=== PATIENT | male | born 1950 | race Caucasian/White ===

== ENCOUNTER → 2016-02-14 | Outpatient (CLI) | payer MEDICARE, OTHER ==
[~2016-02-14] MED LIST: AMLO5TAB2 PO; ASPI32ECTA PO; BACT800T5 PO; BICA50TA2 PO; FLOM5CAP PO; FURO20TA2 PO; GLYB5TA PO; INVO100T PO; LISI20TA3 PO; MAPA325T2 PO; METF1000 PO; POTA10CA PO; SYNT125T PO; TRAD5TAB PO; ZOCO40TA PO
== END ==
LOC: M ONCR 14:22
PROVIDERS: ATTEND Radiology Radiation Oncology
DX: C61 Malignant neoplasm of prostate (principal); C79.51 Secondary malignant neoplasm of bone

== ENCOUNTER 2016-02-17 18:08 | Emergency (ER) | payer OTHER, MEDICARE ==
[2016-02-17 19:25] LABS: BASO % 0.5 % (0.0-1.0); EOS # 0.3 K/mm3 (0.0-0.50); EOS % 5.1 % (0.0-3.0); LARGE UNSTAINED CELL # 0.2 K/mm3 (0.0-0.4); LYMPH # 0.7 K/mm3 (1.5-4.5); LYMPH % 12.8 % (24.0-44.0); MEAN CORPUSCULAR HEMOGLOBIN 29.7 pg (27.0-33.0); MEAN CORPUSCULAR HGB CONC 33.6 g/dl (32.0-36.5); MEAN CORPUSCULAR VOLUME 88.5 fl (80.0-96.0); MONO # 0.3 K/mm3 (0.0-0.8); MONO % 5.5 % (0.0-5.0); NEUTROPHILS # 3.9 K/mm3 (1.8-7.7); NEUTROPHILS % 73.2 % (36.0-66.0); PLATELET COUNT, AUTOMATED 274 k/mm3 (150-450); RED CELL DISTRIBUTION WIDTH 12.8 % (11.5-14.5); WHITE BLOOD COUNT 5.4 K/mm3 (4.0-10.0)
[2016-02-17 19:52] LABS: CALCIUM LEVEL 8.8 MG/DL (8.8-10.2); CREATININE FOR GFR 1.95 MG/DL (0.70-1.30); FREE T4 1.72 NG/DL (0.76-1.46); GLOMERULAR FILTRATION RATE 36.8 (>49); POTASSIUM SERUM 3.5 MEQ/L (3.5-5.1)
--- NOTE | 2016-02-17 20:00 | REPUSA ---
CLINICAL HISTORY: Dizzy. TECHNIQUE: Multiple axial CT images were obtained through the brain without IV contrast material. COMMENTS: Comparison is made to the prior exam performed on 11/28/2015. Again noted prior occipital craniectomy with an associated pseudomeningocele. There is compression of the posterior fossa. There is normal configuration of sella turcica. There are no intra or extra-axial collections. There is no mass effect or midline shift. There is no evidence of hematoma formation. No hydrocephalus is p resent. The ventricles are symmetrical. No abnormal calcifications are present. There is diffuse age-appropriate cerebellar and cerebral atrophy with proportionally dilated ventricl es and cortical sulci. There are bilateral periventricular and subcortical white matter hypolucencies compatible with mild c hronic microvascular disease. Otherwise, no significant acute focal abnormalities are seen either in the posterior fossa or suprate ntorial compartment. IMPRESSION: Occipital craniectomy. Decompression of the posterior fossa. 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 No interval change and no acute intracranial pathology. Thank you for your kind referral of this patient.
--- NOTE | 2016-02-17 21:30 | EDDOCDS ---
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 I've had jc4 dry heaves". Currently undergoing radiation. Pt states became dizzy, fell and struck his head 2 days ago. Adult Sepsis Screening: The patient does not have new or worsening altered mentation. Patient's respiratory rate is less than 22. Systolic blood pressure is greater than 100. Patient has a qSOFA score of 0- Negative Sepsis Screen. Suicide/Homicide risk assessment- the patient denies having any suicidal and/or homicidal ideations and does not present with any other emotional, behavioral or mental health complaints. Status: Patient is not a field service tech or dependent. Transition of care: patient was not received from another setting of care. 18:13 Acuity: NILE Level 3 jc4 18:13 Method Of Arrival: Wheelchair jc4 Triage Assessment: 18:24 General: Appears in no apparent distress. jc4 18:24 Pain: Pain currently is 3 out of 10 on a pain scale. jc4 Historical: - Allergies: no known allergies; - Home Meds: 1. aspirin 325 mg oral tab 1 tab once daily (Last dose: 02/17/2016 11:00) 2. furosemide 20 mg Oral tab 1 tab once daily (Last dose: 02/17/2016 11:00) 3. levothyroxine 125 mcg Oral tab 1 tab once daily (Last dose: 02/17/2016 11:00) 4. lisinopril-hydrochlorothiazide 20-25 mg oral tab 1 tab once daily (Last dose: 02/17/2016 11:00) 5. metformin 1,000 mg Oral tab 2 tab 2 times per day (Last dose: 02/17/2016 11:00) 6. potassium chloride 10 mEq Oral cpER 1 cap once daily (Last dose: 02/17/2016 11:00) 7. simvastatin 40 mg oral tab 1 tab nightly (Last dose: 02/16/2016) 8. tamsulosin 0.4 mg oral cp24 1 cap once daily (Last dose: 02/16/2016) - PMHx: Hypothyroidism; Hypertension; Diabetes - NIDDM: controlled; Cancer, Brain; Cancer, Prostate; Cancer, Bone; Grave's Disease; - PSHx: brain surgery, tumor removal; eye surgery; - The history from nurses notes was reviewed: and I agree with what is documented. - Social history: Smoking status: Patient states former smoker of tobacco. No barriers to communication noted, The patient speaks fluent [place]. - Family history: Not pertinent. - : The pt / caregiver states he / she is not on anticoagulants. Home medication list is obtained from the patient. - Hospitalizations: : No recent hospitalization is reported. - Exposure Risk Screening:: None identified. - Immunization history:: All immunizations up-to-date. - Social history:: the patient is a non-smoker, the patient does not drink alcohol. Screenin:49 Screening information is obtained from the patient. Fall risk: At risk due to dizziness mlc . Assistance ADL's: requires no assistance with activities of daily living. Abuse/DV Screen: The patient / caregiver reports he/she is: not in a situation that causes fear, pain or injury. Nutritional screening: No deficits noted. Advance Directives: Currently, there is no health care proxy. There is no active DNR order. There is no Power of Websphere Message Broker Developer. home support is adequate. Assessment: 18:38 General: Appears in no apparent distress, Behavior is appropriate for age, cooperative. pml General:. Pain: Denies pain. Neurological: Level of Consciousness is awake, alert, Oriented to person, place, time, Enterprise Records Analyst are equal bilaterally Moves all extremities. Facial symmetry appears normal, Pupils are PERRLA, Reports dizziness, intermittently when standing which resolves after remaining standing for a brief period of time. Cardiovascular: Capillary refill < 3 seconds Rhythm is sinus rhythm No ectopy. Respiratory: Airway is patent Respiratory effort is even, unlabored. GI: Abdomen is non- distended Reports dry heaving. Derm: Skin is pink, warm & dry. 19:18 General: Appears in no apparent distress, comfortable, pt talking about financial mlc issues, having a fixed income and not being able to afford gas money.. 19:49 General: Appears in no apparent distress, comfortable, Behavior is cooperative. mlc Neurological: Level of Consciousness is awake, alert, obeys commands, Oriented to person, place, time. Respiratory: Airway is patent Respiratory effort is even, unlabored, Respiratory pattern is regular. 20:51 Reassessment: Patient appears in no apparent distress at this time. no changes since mlc prior. resp easy/unlabored. . 21:28 General: Appears in no apparent distress, comfortable, Behavior is appropriate for age, ko2 cooperative. Neurological: Level of Consciousness is awake, alert. Respiratory: Airway is patent Respiratory effort is even, unlabored. Derm: Skin is pink, warm & dry. Social Work Consult: 21:23 Social Work Note: Pt requested to speak to PSA regarding his welfare benefits. Pt ac states he had his benefits cut and doesn't have enough to live on. Pt has multiples complaints. Pt to be referred to Health Home program for case management to see if he is entitled to any additional resources. No further intervention required at this time. Vital Signs: 18:10 BP 101 / 63; Pulse 93; Resp 18 S; Temp 97.5(O); Pulse Ox 100% on R/A; Weight 84.82 kg gr2 (R); Height 5 ft. 9 in. (175.26 cm) (R); Pain 3/10; 18:38 BP 106 / 63 Supine; Pulse 80; pml 18:38 BP 103 / 51 Sitting; Pulse 90; pml 18:38 BP 94 / 60 Standing; Pulse 97; pml 21:28 BP 114 / 58; Pulse 73; Resp 20; Temp 98.3; Pulse Ox 100% ; Pain 3/10; ko2 18:10 Body Mass Index 27.61 (84.82 kg, 175.26 cm) gr2 Vitals: 18:10 Log In Time: February 17, 2016 at 18:10. gr2 ED Course: 18:09 Patient visited by Chay Glez. gr2 18:09 Patient moved to Waiting gr2 18:10 Hola Cooper is Private Physician. gr2 18:11 Patient visited by Chay Glez. gr2 18:11 Patient moved to Pre RCE gr2 18:16 Triage Initiated jc4 18:26 Denise Watts,ANASTASIIA is Primary Nurse. jc4 18:26 Patient moved to 10 jc4 18:28 José Mcknight MD is Attending Physician. pc 18:33 Patient visited by Nichelle Mohr. dem1 18:33 Pt greeted and oriented to ED. Patient advised of names of staff involved in care, [facility] location of call holman, wait times and NPO status. Patient has correct armband on for positive identification. Placed in gown. Bed in low position. Side rails up X 1. email administrator on. Pulse ox on. NIBP on. 18:48 Patient visited by José Mcknight MD. pc 19:06 Patient visited by Maurisio Moreland PCA. kb5 19:06 Isabelle Weber,RN is Primary Nurse. mlc 19:17 CBC with Diff Sent. mlc 19:17 TSH with Free T4 Sent. mlc 19:17 MED Profile Sent. mlc 19:17 No IV's were initiated during this patient's visit. mlc 19:49 The patient / caregiver is instructed regarding the plan of care and ED course. mlc 19:50 Patient visited by Isabelle Weber,ANASTASIIA. mlc 20:00 CT Head Without Contrast Returned. EDMS 20:05 Primary Nurse role handed off by Denise Watts,ANASTASIIA jmv 20:51 Patient visited by Isabelle Weber,ANASTASIIA. mlc 20:59 Hola Cooper MD is Referral Physician. pc 21:29 No procedures done that require assistance. ko2 Order Results: Lab Order: MED Profile; SPEC'M 02/17/16 19:14 Test: GLUCOSE, FASTING; Value: 171; Range: 80-110; Abnormal: Above high normal; Units: MG/DL; Status: F Test: BLOOD UREA NITROGEN; Value: 36; Range: 7-18; Abnormal: Above high normal; Units: MG/DL; Status: F Test: CREATININE FOR GFR; Value: 1.95; Range: 0.70-1.30; Abnormal: Above high normal; Units: MG/DL; Status: F Test: GLOMERULAR FILTRATION RATE; Value: 36.8; Range: >49; Abnormal: Below low normal; Status: F Test: SODIUM LEVEL; Value: 140; Range: 136-145; Units: MEQ/L; Status: F Test: POTASSIUM SERUM; Value: 3.5; Range: 3.5-5.1; Units: MEQ/L; Status: F Test: CHLORIDE LEVEL; Value: 102; Range: 98-107; Units: MEQ/L; Status: F Test: CARBON DIOXIDE LEVEL; Value: 24; Range: 21-32; Units: MEQ/L; Status: F Test: ANION GAP; Value: 14; Range: 8-16; Units: MEQ/L; Status: F Test: CALCIUM LEVEL; Value: 8.8; Range: 8.8-10.2; Units: MG/DL; Status: F Test Note: ; Units are mL/min/1.73 m2 Chronic Kidney Disease Staging per NKF: Stage I & II GFR >=60 Normal to Mildly Decreased Stage III GFR 30-59 Moderately Decreased Stage IV GFR 15-29 Severely Decreased Stage V GFR <15 Very Little GFR Left ESRD GFR <15 on CRITICAL CARE NURSE PRACTITIONER Lab Order: TSH with Free T4; SPEC'M 02/17/16 19:14 Test: THYROID STIMULATING HORMONE; Value: 0.029; Range: 0.358-3.740; Abnormal: Below low normal; Units: uIU/ML; Status: F Test: FREE T4; Value: 1.72; Range: 0.76-1.46; Abnormal: Above high normal; Units: NG/DL; Status: F Lab Order: CBC with Diff; SPEC'M 02/17/16 19:14 Test: WHITE BLOOD COUNT; Value: 5.4; Range: 4.0-10.0; Units: K/mm3; Status: F Test: RED BLOOD COUNT; Value: 3.83; Range: 4.30-6.10; Abnormal: Below low normal; Units: M/mm3; Status: F Test: HEMOGLOBIN; Value: 11.4; Range: 14.0-18.0; Abnormal: Below low normal; Units: g/dl; Status: F Test: HEMATOCRIT; Value: 33.9; Range: 42.0-52.0; Abnormal: Below low normal; Units: %; Status: F Test: MEAN CORPUSCULAR VOLUME; Value: 88.5; Range: 80.0-96.0; Units: fl; Status: F Test: MEAN CORPUSCULAR HEMOGLOBIN; Value: 29.7; Range: 27.0-33.0; Units: pg; Status: F Test: MEAN CORPUSCULAR HGB CONC; Value: 33.6; Range: 32.0-36.5; Units: g/dl; Status: F Test: RED CELL DISTRIBUTION WIDTH; Value: 12.8; Range: 11.5-14.5; Units: %; Status: F Test: PLATELET COUNT, AUTOMATED; Value: 274; Range: 150-450; Units: k/mm3; Status: F Test: NEUTROPHILS %; Value: 73.2; Range: 36.0-66.0; Abnormal: Above high normal; Units: %; Status: F Test: LYMPH %; Value: 12.8; Range: 24.0-44.0; Abnormal: Below low normal; Units: %; Status: F Test: MONO %; Value: 5.5; Range: 0.0-5.0; Abnormal: Above high normal; Units: %; Status: F Test: EOS %; Value: 5.1; Range: 0.0-3.0; Abnormal: Above high normal; Units: %; Status: F Test: BASO %; Value: 0.5; Range: 0.0-1.0; Units: %; Status: F Test: LARGE UNSTAINED CELL %; Value: 3.0; Range: 0.0-4.0; Units: %; Status: F Test: NEUTROPHILS #; Value: 3.9; Range: 1.8-7.7; Units: K/mm3; Status: F Test: LYMPH #; Value: 0.7; Range: 1.5-4.5; Abnormal: Below low normal; Units: K/mm3; Status: F Test: MONO #; Value: 0.3; Range: 0.0-0.8; Units: K/mm3; Status: F Test: EOS #; Value: 0.3; Range: 0.0-0.50; Units: K/mm3; Status: F Test: BASO #; Value: 0.0; Range: 0.0-0.2; Units: K/mm3; Status: F Test: LARGE UNSTAINED CELL #; Value: 0.2; Range: 0.0-0.4; Units: K/mm3; Status: F Radiology Order: CT Head Without Contrast Test: CT Head Without Contrast REASON FOR EXAMINATION: dizziness s/p craniotomy; ; CLINICAL HISTORY: Dizzy.; TECHNIQUE: Multiple axial CT images were obtained through the brain without IV contrast material.; COMMENTS:; Comparison is made to the prior exam performed on 11/28/2015.; Again noted prior occipital craniectomy with an associated pseudomeningocele. There is compression of; the posterior fossa.; There is normal configuration of sella turcica. There are no intra or extra-axial collections. There; is no mass effect or midline shift. There is no evidence of hematoma formation. No hydrocephalus is p; resent. The ventricles are symmetrical. No abnormal calcifications are present.; There is diffuse age-appropriate cerebellar and cerebral atrophy with proportionally dilated ventricl; es and cortical sulci.; There are bilateral periventricular and subcortical white matter hypolucencies compatible with mild c; hronic microvascular disease.; Otherwise, no significant acute focal abnormalities are seen either in the posterior fossa or suprate; ntorial compartment.; IMPRESSION:; Occipital craniectomy. Decompression of the posterior fossa. Pseudomeningocele at the site of the power crane operator; niectomy as described above.; No interval change and no acute intracranial pathology.; Thank you for your kind referral of this patient.; ; ; Outcome: 19:49 CT Study completed. [facility] 20:59 Discharge ordered by Provider. 21:29 Discharge Assessment: Patient awake, alert and oriented x 3. No cognitive and/or ko2 functional deficits noted. Patient verbalized understanding of disposition instructions. patient administered narcotics - no. The following High Risk Discharge criteria are identified: None. Discharged to home ambulatory, with family. Condition: stable. Discharge instructions given to patient, Instructed on discharge instructions, follow up and referral plans. Demonstrated understanding of instructions, Pt was receptive of discharge instructions/ teaching. Property sent home with patient. 21:29 Patient left the ED. ko2 Signatures: Dispatcher [employer] EDMS José Mcknight MD MD pc Carter, Alexandre, PSA PSA Maurisio Jordan, FEATHERER FEATHERER kb5 Dorota Gonzalez RN RN jc4 Denise Watts RN RN Nichelle Lee dem1 Chay Glez gr2 Isabelle Wbeer RN RN [facility] Dominique Power RN RN ko2 Casas, Romaine, FEATHERER FEATHERER jmv MTDD
--- NOTE | 2016-02-17 21:30 | EDDOCDS ---
Physician Documentation [facility] Name: Papito Abebe Age: 65 yrs Sex: Male : 1950 Arrival Date: 02/17/2016 Time: 18:08 Bed 10 Private MD: Hola Cooper MD Disposition: 02/16 20:36 Critical Care: Critical care not applicable. pc Disposition: 02/17/16 20:59 Discharged to Home/Self Care. 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 - Condition is Stable. - Discharge Instructions: Orthostatic Hypotension. - Medication Reconciliation, Local Pharmacy Hours form. - Follow up: Hola Cooper MD; When: Call to arrange an appointment; Reason: Continuance of care. - Problem is an ongoing problem. - Symptoms are unchanged. HPI: 18:49 This 65 yrs old Male presents to ER via Wheelchair with complaints of pc Dizziness. 18:49 The history is obtained from the patient. He has intermittent dizziness, only when pc going from a sitting or lying position to a standing position. 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 He has metastatic prostate Ca, with blastic lesions in his axial spine and his ribs, and had a posterior fossa mass with resection. He has refused chemotherapy and is finished his radiation. He denies any headaches, fevers or chills, cough, chest pain, GI or symptoms. The patient has experienced similar episodes in the past, multiple times. The patient has been recently seen by Dr. Rich. Historical: - Allergies: no known allergies; - Home Meds: 1. aspirin 325 mg oral tab 1 tab once daily (Last dose: 02/17/2016 11:00) 2. furosemide 20 mg Oral tab 1 tab once daily (Last dose: 02/17/2016 11:00) 3. levothyroxine 125 mcg Oral tab 1 tab once daily (Last dose: 02/17/2016 11:00) 4. lisinopril-hydrochlorothiazide 20-25 mg oral tab 1 tab once daily (Last dose: 02/17/2016 11:00) 5. metformin 1,000 mg Oral tab 2 tab 2 times per day (Last dose: 02/17/2016 11:00) 6. potassium chloride 10 mEq Oral cpER 1 cap once daily (Last dose: 02/17/2016 11:00) 7. simvastatin 40 mg oral tab 1 tab nightly (Last dose: 02/16/2016) 8. tamsulosin 0.4 mg oral cp24 1 cap once daily (Last dose: 02/16/2016) - PMHx: Hypothyroidism; Hypertension; Diabetes - NIDDM: controlled; Cancer, Brain; Cancer, Prostate; Cancer, Bone; Grave's Disease; - PSHx: brain surgery, tumor removal; eye surgery; - The history from nurses notes was reviewed: and I agree with what is documented. - Social history: Smoking status: Patient states former smoker of tobacco. No barriers to communication noted, The patient speaks fluent [place]. - Family history: Not pertinent. - : The pt / caregiver states he / she is not on anticoagulants. Home medication list is obtained from the patient. - Hospitalizations: : No recent hospitalization is reported. - Exposure Risk Screening:: None identified. - Immunization history:: All immunizations up-to-date. - Social history:: the patient is a non-smoker, the patient does not drink alcohol. ROS: 18:48 He denies any back or rib pain. pc 18:49 All systems are negative except as listed. pc Exam: 18:57 General Appearance: no acute distress, alert. pc 18:57 EENT: normal eye inspection, ears, nose and throat normal, pharynx normal, mucous membranes moist 18:57 Neck: The exam reveals no acute abnormalities. ROM is normal and painless. No nuchal rigidity is noted.. 18:57 Respiratory: no respiratory distress, normal breath sounds, chest non-tender. 18:57 CVS: regular pulse rate, regular rhythm, normal S1 and S2, no murmurs, strong peripheral pulses. 18:57 Abdomen: soft, non-tender, no organomegaly, normal bowel sounds. 18:57 Back: normal inspection. 18:57 Skin: skin color is normal, warm, dry. 18:57 Extremities: The extremities have a grossly normal appearance, are non-tender, without acute ROM abnormalities. 18:57 Neuro: oriented x 3, cranial nerves normal as tested, no motor deficits, no sensory deficits. 18:57 Psych: normal mood. Vital Signs: 18:10 BP 101 / 63; Pulse 93; Resp 18 S; Temp 97.5(O); Pulse Ox 100% on R/A; Weight 84.82 kg / gr2 187 lbs (R); Height 5 ft. 9 in. (175.26 cm) (R); Pain 3/10; 18:38 BP 106 / 63 Supine; Pulse 80; pml 18:38 BP 103 / 51 Sitting; Pulse 90; pml 18:38 BP 94 / 60 Standing; Pulse 97; pml 21:28 BP 114 / 58; Pulse 73; Resp 20; Temp 98.3; Pulse Ox 100% ; Pain 3/10; ko2 18:10 Body Mass Index 27.61 (84.82 kg, 175.26 cm) gr2 MDM: 18:43 Data reviewed: The patient's [facility] records were accessed, as they were informed. pc 18:48 Orthostatic VS ordered. pc 18:50 MED Profile Ordered. EDMS 18:50 TSH with Free T4 Ordered. EDMS 18:50 CBC with Diff Ordered. EDMS 18:50 CT Head Without Contrast Ordered. EDMS 18:58 Differential Diagnosis: orthostatic hypotension; prior craniotomy but with benign exam. pc Plan: labs, CT. 20:02 Consult PFS/PSA/Auto Painter Helper: Resources/Social Work ordered. mlc 20:34 MED Profile Reviewed. pc 20:34 TSH with Free T4 Reviewed. pc 20:34 CBC with Diff Reviewed. pc 20:34 CT Head Without Contrast Reviewed. pc 20:35 Data reviewed: old medical records, vital signs, nurses notes, lab test results, all pc radiology studies and available results. Test interpretation: LAB - all labs as ordered have been reviewed, interpreted and considered in the overall management of the clinical presentation; interpreted by Radiologist and personally reviewed, Head CT; no acute disease. The patient has been re-examined and re-evaluated. The clinical presentation did not require any ED treatment or interventions. Other consultation: The ED recording studio set up worker was notified and will evaluate the patient. 20:36 Disposition: The historical points, examination findings, and any diagnostic results pc supporting the provided diagnosis, were discussed with the patient or legal guardian. The need for outpatient follow up with the provider listed on their discharge instructions was discussed. They were encouraged to return to [facility], or the nearest ED, if symptoms worsen/persist, or for any other questions/concerns. 21:17 Consult PFS/PSA/Auto Painter Helper: Resources/Social Work complete. larry Signatures: Dispatcher [employer] José Beaulieu MD MD pc Newman, Jennifer Daily RN RN Dorota Alejandro RN RN jc4 Denise WattsRN ANASTASIIA pml Isabelle Weber RN RN mlc Dominique Power RN RN ko2 The chart was reviewed and I authenticate all verbal orders and agree with the evaluation and treatment provided.Corrections: (The following items were deleted from the chart) 20:02 19:46 Consult: Stock Sheets Cleaner Inspector ordered. mlc mlc MTDD
--- NOTE | 2016-02-20 11:48 | EDDOCDS ---
Nurse's Notes 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 I've had jc4 dry heaves". Currently undergoing radiation. Pt states became dizzy, fell and struck his head 2 days ago. Adult Sepsis Screening: The patient does not have new or worsening altered mentation. Patient's respiratory rate is less than 22. Systolic blood pressure is greater than 100. Patient has a qSOFA score of 0- Negative Sepsis Screen. Suicide/Homicide risk assessment- the patient denies having any suicidal and/or homicidal ideations and does not present with any other emotional, behavioral or mental health complaints. Status: Patient is not a family services manager or dependent. Transition of care: patient was not received from another setting of care. 18:13 Acuity: NILE Level 3 jc4 18:13 Method Of Arrival: Wheelchair jc4 Triage Assessment: 18:24 General: Appears in no apparent distress. jc4 18:24 Pain: Pain currently is 3 out of 10 on a pain scale. jc4 Historical: - Allergies: no known allergies; - Home Meds: 1. aspirin 325 mg oral tab 1 tab once daily (Last dose: 02/17/2016 11:00) 2. furosemide 20 mg Oral tab 1 tab once daily (Last dose: 02/17/2016 11:00) 3. levothyroxine 125 mcg Oral tab 1 tab once daily (Last dose: 02/17/2016 11:00) 4. lisinopril-hydrochlorothiazide 20-25 mg oral tab 1 tab once daily (Last dose: 02/17/2016 11:00) 5. metformin 1,000 mg Oral tab 2 tab 2 times per day (Last dose: 02/17/2016 11:00) 6. potassium chloride 10 mEq Oral cpER 1 cap once daily (Last dose: 02/17/2016 11:00) 7. simvastatin 40 mg oral tab 1 tab nightly (Last dose: 02/16/2016) 8. tamsulosin 0.4 mg oral cp24 1 cap once daily (Last dose: 02/16/2016) - PMHx: Hypothyroidism; Hypertension; Diabetes - NIDDM: controlled; Cancer, Brain; Cancer, Prostate; Cancer, Bone; Grave's Disease; - PSHx: brain surgery, tumor removal; eye surgery; - The history from nurses notes was reviewed: and I agree with what is documented. - Social history: Smoking status: Patient states former smoker of tobacco. No barriers to communication noted, The patient speaks fluent Cook Islander. - Family history: Not pertinent. - : The pt / caregiver states he / she is not on anticoagulants. Home medication list is obtained from the patient. - Hospitalizations: : No recent hospitalization is reported. - Exposure Risk Screening:: None identified. - Immunization history:: All immunizations up-to-date. - Social history:: the patient is a non-smoker, the patient does not drink alcohol. Screenin:49 Screening information is obtained from the patient. Fall risk: At risk due to dizziness mlc . Assistance ADL's: requires no assistance with activities of daily living. Abuse/DV Screen: The patient / caregiver reports he/she is: not in a situation that causes fear, pain or injury. Nutritional screening: No deficits noted. Advance Directives: Currently, there is no health care proxy. There is no active DNR order. There is no Power of Cloth Classer. home support is adequate. Assessment: 18:38 General: Appears in no apparent distress, Behavior is appropriate for age, cooperative. pml General:. Pain: Denies pain. Neurological: Level of Consciousness is awake, alert, Oriented to person, place, time, Pressure Supervisor are equal bilaterally Moves all extremities. Facial symmetry appears normal, Pupils are PERRLA, Reports dizziness, intermittently when standing which resolves after remaining standing for a brief period of time. Cardiovascular: Capillary refill < 3 seconds Rhythm is sinus rhythm No ectopy. Respiratory: Airway is patent Respiratory effort is even, unlabored. GI: Abdomen is non- distended Reports dry heaving. Derm: Skin is pink, warm & dry. 19:18 General: Appears in no apparent distress, comfortable, pt talking about financial mlc issues, having a fixed income and not being able to afford gas money.. 19:49 General: Appears in no apparent distress, comfortable, Behavior is cooperative. mlc Neurological: Level of Consciousness is awake, alert, obeys commands, Oriented to person, place, time. Respiratory: Airway is patent Respiratory effort is even, unlabored, Respiratory pattern is regular. 20:51 Reassessment: Patient appears in no apparent distress at this time. no changes since mlc prior. resp easy/unlabored. . 21:28 General: Appears in no apparent distress, comfortable, Behavior is appropriate for age, ko2 cooperative. Neurological: Level of Consciousness is awake, alert. Respiratory: Airway is patent Respiratory effort is even, unlabored. Derm: Skin is pink, warm & dry. Social Work Consult: 21:23 Social Work Note: Pt requested to speak to PSA regarding his welfare benefits. Pt ac states he had his benefits cut and doesn't have enough to live on. Pt has multiples complaints. Pt to be referred to Health Home program for case management to see if he is entitled to any additional resources. No further intervention required at this time. Vital Signs: 18:10 BP 101 / 63; Pulse 93; Resp 18 S; Temp 97.5(O); Pulse Ox 100% on R/A; Weight 84.82 kg gr2 (R); Height 5 ft. 9 in. (175.26 cm) (R); Pain 3/10; 18:38 BP 106 / 63 Supine; Pulse 80; pml 18:38 BP 103 / 51 Sitting; Pulse 90; pml 18:38 BP 94 / 60 Standing; Pulse 97; pml 21:28 BP 114 / 58; Pulse 73; Resp 20; Temp 98.3; Pulse Ox 100% ; Pain 3/10; ko2 18:10 Body Mass Index 27.61 (84.82 kg, 175.26 cm) gr2 Vitals: 18:10 Log In Time: February 17, 2016 at 18:10. gr2 ED Course: 18:09 Patient visited by Chay Glez. gr2 18:09 Patient moved to Waiting gr2 18:10 Hola Cooper is Private Physician. gr2 18:11 Patient visited by Chay Glez. gr2 18:11 Patient moved to Pre RCE gr2 18:16 Triage Initiated jc4 18:26 Denise Watts,ANASTASIIA is Primary Nurse. jc4 18:26 Patient moved to 10 jc4 18:28 José Mcknight MD is Attending Physician. pc 18:33 Patient visited by Nichelle Mohr. dem1 18:33 Pt greeted and oriented to ED. Patient advised of names of staff involved in care, dem1 location of call holman, wait times and NPO status. Patient has correct armband on for positive identification. Placed in gown. Bed in low position. Side rails up X 1. circus roustabout on. Pulse ox on. NIBP on. 18:48 Patient visited by José Mcknight MD. pc 19:06 Patient visited by Maurisio Moreland PCA. kb5 19:06 Isabelle Weber,RN is Primary Nurse. mlc 19:17 CBC with Diff Sent. mlc 19:17 TSH with Free T4 Sent. mlc 19:17 MED Profile Sent. mlc 19:17 No IV's were initiated during this patient's visit. mlc 19:49 The patient / caregiver is instructed regarding the plan of care and ED course. mlc 19:50 Patient visited by Isabelle Weber,ANASTASIIA. mlc 20:00 CT Head Without Contrast Returned. EDMS 20:05 Primary Nurse role handed off by Denise Watts,ANASTASIIA jmv 20:51 Patient visited by Isabelle Weber,ANASTASIIA. mlc 20:59 Hola Cooper MD is Referral Physician. pc 21:29 No procedures done that require assistance. ko2 22:24 [facility] Payment Agreement was scanned into [employer] and attached to record. [email or web address] Order Results: Lab Order: MED Profile; SPEC'M 02/17/16 19:14 Test: GLUCOSE, FASTING; Value: 171; Range: 80-110; Abnormal: Above high normal; Units: MG/DL; Status: F Test: BLOOD UREA NITROGEN; Value: 36; Range: 7-18; Abnormal: Above high normal; Units: MG/DL; Status: F Test: CREATININE FOR GFR; Value: 1.95; Range: 0.70-1.30; Abnormal: Above high normal; Units: MG/DL; Status: F Test: GLOMERULAR FILTRATION RATE; Value: 36.8; Range: >49; Abnormal: Below low normal; Status: F Test: SODIUM LEVEL; Value: 140; Range: 136-145; Units: MEQ/L; Status: F Test: POTASSIUM SERUM; Value: 3.5; Range: 3.5-5.1; Units: MEQ/L; Status: F Test: CHLORIDE LEVEL; Value: 102; Range: 98-107; Units: MEQ/L; Status: F Test: CARBON DIOXIDE LEVEL; Value: 24; Range: 21-32; Units: MEQ/L; Status: F Test: ANION GAP; Value: 14; Range: 8-16; Units: MEQ/L; Status: F Test: CALCIUM LEVEL; Value: 8.8; Range: 8.8-10.2; Units: MG/DL; Status: F Test Note: ; Units are mL/min/1.73 m2 Chronic Kidney Disease Staging per NKF: Stage I & II GFR >=60 Normal to Mildly Decreased Stage III GFR 30-59 Moderately Decreased Stage IV GFR 15-29 Severely Decreased Stage V GFR <15 Very Little GFR Left ESRD GFR <15 on DISTRICT LEADER Lab Order: TSH with Free T4; SPEC'M 02/17/16 19:14 Test: THYROID STIMULATING HORMONE; Value: 0.029; Range: 0.358-3.740; Abnormal: Below low normal; Units: uIU/ML; Status: F Test: FREE T4; Value: 1.72; Range: 0.76-1.46; Abnormal: Above high normal; Units: NG/DL; Status: F Lab Order: CBC with Diff; SPEC'M 02/17/16 19:14 Test: WHITE BLOOD COUNT; Value: 5.4; Range: 4.0-10.0; Units: K/mm3; Status: F Test: RED BLOOD COUNT; Value: 3.83; Range: 4.30-6.10; Abnormal: Below low normal; Units: M/mm3; Status: F Test: HEMOGLOBIN; Value: 11.4; Range: 14.0-18.0; Abnormal: Below low normal; Units: g/dl; Status: F Test: HEMATOCRIT; Value: 33.9; Range: 42.0-52.0; Abnormal: Below low normal; Units: %; Status: F Test: MEAN CORPUSCULAR VOLUME; Value: 88.5; Range: 80.0-96.0; Units: fl; Status: F Test: MEAN CORPUSCULAR HEMOGLOBIN; Value: 29.7; Range: 27.0-33.0; Units: pg; Status: F Test: MEAN CORPUSCULAR HGB CONC; Value: 33.6; Range: 32.0-36.5; Units: g/dl; Status: F Test: RED CELL DISTRIBUTION WIDTH; Value: 12.8; Range: 11.5-14.5; Units: %; Status: F Test: PLATELET COUNT, AUTOMATED; Value: 274; Range: 150-450; Units: k/mm3; Status: F Test: NEUTROPHILS %; Value: 73.2; Range: 36.0-66.0; Abnormal: Above high normal; Units: %; Status: F Test: LYMPH %; Value: 12.8; Range: 24.0-44.0; Abnormal: Below low normal; Units: %; Status: F Test: MONO %; Value: 5.5; Range: 0.0-5.0; Abnormal: Above high normal; Units: %; Status: F Test: EOS %; Value: 5.1; Range: 0.0-3.0; Abnormal: Above high normal; Units: %; Status: F Test: BASO %; Value: 0.5; Range: 0.0-1.0; Units: %; Status: F Test: LARGE UNSTAINED CELL %; Value: 3.0; Range: 0.0-4.0; Units: %; Status: F Test: NEUTROPHILS #; Value: 3.9; Range: 1.8-7.7; Units: K/mm3; Status: F Test: LYMPH #; Value: 0.7; Range: 1.5-4.5; Abnormal: Below low normal; Units: K/mm3; Status: F Test: MONO #; Value: 0.3; Range: 0.0-0.8; Units: K/mm3; Status: F Test: EOS #; Value: 0.3; Range: 0.0-0.50; Units: K/mm3; Status: F Test: BASO #; Value: 0.0; Range: 0.0-0.2; Units: K/mm3; Status: F Test: LARGE UNSTAINED CELL #; Value: 0.2; Range: 0.0-0.4; Units: K/mm3; Status: F Radiology Order: CT Head Without Contrast Test: CT Head Without Contrast REASON FOR EXAMINATION: dizziness s/p craniotomy; ; CLINICAL HISTORY: Dizzy.; TECHNIQUE: Multiple axial CT images were obtained through the brain without IV contrast material.; COMMENTS:; Comparison is made to the prior exam performed on 11/28/2015.; Again noted prior occipital craniectomy with an associated pseudomeningocele. There is compression of; the posterior fossa.; There is normal configuration of sella turcica. There are no intra or extra-axial collections. There; is no mass effect or midline shift. There is no evidence of hematoma formation. No hydrocephalus is p; resent. The ventricles are symmetrical. No abnormal calcifications are present.; There is diffuse age-appropriate cerebellar and cerebral atrophy with proportionally dilated ventricl; es and cortical sulci.; There are bilateral periventricular and subcortical white matter hypolucencies compatible with mild c; hronic microvascular disease.; Otherwise, no significant acute focal abnormalities are seen either in the posterior fossa or suprate; ntorial compartment.; IMPRESSION:; Occipital craniectomy. Decompression of the posterior fossa. 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 [facility] [place]:59 Discharge ordered by Provider. 21:29 Discharge Assessment: Patient awake, alert and oriented x 3. No cognitive and/or ko2 functional deficits noted. Patient verbalized understanding of disposition instructions. patient administered narcotics - no. The following High Risk Discharge criteria are identified: None. Discharged to home ambulatory, with family. Condition: stable. Discharge instructions given to patient, Instructed on discharge instructions, follow up and referral plans. Demonstrated understanding of instructions, Pt was receptive of discharge instructions/ teaching. Property sent home with patient. 21:29 Patient left the ED. ko2 Signatures: Dispatcher [employer] EDMS José Mcknight MD MD pc Alexandre Cabrera, MARCEL PSA ac Maurisio Moreland, DOCUMENT RESTORER DOCUMENT RESTORER kb5 Dorota Gonzalez RN RN jc4 Denise Watts RN RN pml Mack, Demeishia dem1 Chay Glez gr2 Isabelle Weber RN RN [facility] Dominique Power,RN RN ko2 Sherie Kelly, Reg Reg ks16 Casas, Romaine, DOCUMENT RESTORER DOCUMENT RESTORER jmv Chart Complete MTDD
--- NOTE | 2016-02-20 11:48 | EDDOCDS ---
Physician Documentation [facility] Name: Papito Abebe Age: 65 yrs Sex: Male : 1950 Arrival Date: 02/17/2016 Time: 18:08 Bed 10 Private MD: Hola Cooper MD Disposition: 02/16 20:36 Critical Care: Critical care not applicable. pc Disposition: 02/17/16 20:59 Discharged to Home/Self Care. 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 - Condition is Stable. - Discharge Instructions: Orthostatic Hypotension. - Medication Reconciliation, Local Pharmacy Hours form. - Follow up: Hola Cooper MD; When: Call to arrange an appointment; Reason: Continuance of care. - Problem is an ongoing problem. - Symptoms are unchanged. HPI: 18:49 This 65 yrs old Male presents to ER via Wheelchair with complaints of pc Dizziness. 18:49 The history is obtained from the patient. He has intermittent dizziness, only when pc going from a sitting or lying position to a standing position. 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 He has metastatic prostate Ca, with blastic lesions in his axial spine and his ribs, and had a posterior fossa mass with resection. He has refused chemotherapy and is finished his radiation. He denies any headaches, fevers or chills, cough, chest pain, GI or symptoms. The patient has experienced similar episodes in the past, multiple times. The patient has been recently seen by Dr. Rcih. Historical: - Allergies: no known allergies; - Home Meds: 1. aspirin 325 mg oral tab 1 tab once daily (Last dose: 02/17/2016 11:00) 2. furosemide 20 mg Oral tab 1 tab once daily (Last dose: 02/17/2016 11:00) 3. levothyroxine 125 mcg Oral tab 1 tab once daily (Last dose: 02/17/2016 11:00) 4. lisinopril-hydrochlorothiazide 20-25 mg oral tab 1 tab once daily (Last dose: 02/17/2016 11:00) 5. metformin 1,000 mg Oral tab 2 tab 2 times per day (Last dose: 02/17/2016 11:00) 6. potassium chloride 10 mEq Oral cpER 1 cap once daily (Last dose: 02/17/2016 11:00) 7. simvastatin 40 mg oral tab 1 tab nightly (Last dose: 02/16/2016) 8. tamsulosin 0.4 mg oral cp24 1 cap once daily (Last dose: 02/16/2016) - PMHx: Hypothyroidism; Hypertension; Diabetes - NIDDM: controlled; Cancer, Brain; Cancer, Prostate; Cancer, Bone; Grave's Disease; - PSHx: brain surgery, tumor removal; eye surgery; - The history from nurses notes was reviewed: and I agree with what is documented. - Social history: Smoking status: Patient states former smoker of tobacco. No barriers to communication noted, The patient speaks fluent Sudanese. - Family history: Not pertinent. - : The pt / caregiver states he / she is not on anticoagulants. Home medication list is obtained from the patient. - Hospitalizations: : No recent hospitalization is reported. - Exposure Risk Screening:: None identified. - Immunization history:: All immunizations up-to-date. - Social history:: the patient is a non-smoker, the patient does not drink alcohol. ROS: 18:48 He denies any back or rib pain. pc 18:49 All systems are negative except as listed. pc Exam: 18:57 General Appearance: no acute distress, alert. pc 18:57 EENT: normal eye inspection, ears, nose and throat normal, pharynx normal, mucous membranes moist 18:57 Neck: The exam reveals no acute abnormalities. ROM is normal and painless. No nuchal rigidity is noted.. 18:57 Respiratory: no respiratory distress, normal breath sounds, chest non-tender. 18:57 CVS: regular pulse rate, regular rhythm, normal S1 and S2, no murmurs, strong peripheral pulses. 18:57 Abdomen: soft, non-tender, no organomegaly, normal bowel sounds. 18:57 Back: normal inspection. 18:57 Skin: skin color is normal, warm, dry. 18:57 Extremities: The extremities have a grossly normal appearance, are non-tender, without acute ROM abnormalities. 18:57 Neuro: oriented x 3, cranial nerves normal as tested, no motor deficits, no sensory deficits. 18:57 Psych: normal mood. Vital Signs: 18:10 BP 101 / 63; Pulse 93; Resp 18 S; Temp 97.5(O); Pulse Ox 100% on R/A; Weight 84.82 kg / gr2 187 lbs (R); Height 5 ft. 9 in. (175.26 cm) (R); Pain 3/10; 18:38 BP 106 / 63 Supine; Pulse 80; pml 18:38 BP 103 / 51 Sitting; Pulse 90; pml 18:38 BP 94 / 60 Standing; Pulse 97; pml 21:28 BP 114 / 58; Pulse 73; Resp 20; Temp 98.3; Pulse Ox 100% ; Pain 3/10; ko2 18:10 Body Mass Index 27.61 (84.82 kg, 175.26 cm) gr2 MDM: 18:43 Data reviewed: The patient's [facility] records were accessed, as they were informed. pc 18:48 Orthostatic VS ordered. pc 18:50 MED Profile Ordered. EDMS 18:50 TSH with Free T4 Ordered. EDMS 18:50 CBC with Diff Ordered. EDMS 18:50 CT Head Without Contrast Ordered. EDMS 18:58 Differential Diagnosis: orthostatic hypotension; prior craniotomy but with benign exam. pc Plan: labs, CT. 20:02 Consult PFS/PSA/Local Az Truck Driver: Resources/Social Work ordered. mlc 20:34 MED Profile Reviewed. pc 20:34 TSH with Free T4 Reviewed. pc 20:34 CBC with Diff Reviewed. pc 20:34 CT Head Without Contrast Reviewed. pc 20:35 Data reviewed: old medical records, vital signs, nurses notes, lab test results, all pc radiology studies and available results. Test interpretation: LAB - all labs as ordered have been reviewed, interpreted and considered in the overall management of the clinical presentation; interpreted by Radiologist and personally reviewed, Head CT; no acute disease. The patient has been re-examined and re-evaluated. The clinical presentation did not require any ED treatment or interventions. Other consultation: The ED personnel worker was notified and will evaluate the patient. 20:36 Disposition: The historical points, examination findings, and any diagnostic results pc supporting the provided diagnosis, were discussed with the patient or legal guardian. The need for outpatient follow up with the provider listed on their discharge instructions was discussed. They were encouraged to return to [facility], or the nearest ED, if symptoms worsen/persist, or for any other questions/concerns. 21:17 Consult PFS/PSA/Local Az Truck Driver: Resources/Social Work complete. mar 03: Financial registration complete. :23 Undo -Financial registration. : Financial registration complete. 22:24 [facility] Payment Agreement was scanned into [employer] and attached to record. Signatures: Dispatcher [employer] EDMS José Mcknight MD MD pc Newman, Jill New RN RN Dorota Alejandro RN RN jc4 Denise Watts RN RN Isabelle Dodd RN RN [facility] Dominique Power RN RN ko2 Sherie Kelly, Reg Reg [email or web address] The chart was reviewed and I authenticate all verbal orders and agree with the evaluation and treatment provided.Corrections: (The following items were deleted from the chart) 20:02 19:46 Consult: Tariff Compiler ordered. [facility] Attachments: 22:24 [facility] Payment Agreement 16 Chart Complete MTDD
--- NOTE | 2016-02-20 11:48 | EDDOCDS ---
Physician Documentation [employer] Name: Papito Abebe Age: 65 yrs Sex: Male : 1950 Arrival Date: 02/17/2016 Time: 18:08 Bed 10 Private MD: Hola Cooper MD Disposition: 02/16 20:36 Critical Care: Critical care not applicable. pc Disposition: 02/17/16 20:59 Discharged to Home/Self Care. 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 - Condition is Stable. - Discharge Instructions: Orthostatic Hypotension. - Medication Reconciliation, Local Pharmacy Hours form. - Follow up: Hola Cooper MD; When: Call to arrange an appointment; Reason: Continuance of care. - Problem is an ongoing problem. - Symptoms are unchanged. HPI: 18:49 This 65 yrs old Male presents to ER via Wheelchair with complaints of pc Dizziness. 18:49 The history is obtained from the patient. He has intermittent dizziness, only when pc going from a sitting or lying position to a standing position. 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 He has metastatic prostate Ca, with blastic lesions in his axial spine and his ribs, and had a posterior fossa mass with resection. He has refused chemotherapy and is finished his radiation. He denies any headaches, fevers or chills, cough, chest pain, GI or symptoms. The patient has experienced similar episodes in the past, multiple times. The patient has been recently seen by Dr. Rich. Historical: - Allergies: no known allergies; - Home Meds: 1. aspirin 325 mg oral tab 1 tab once daily (Last dose: 02/17/2016 11:00) 2. furosemide 20 mg Oral tab 1 tab once daily (Last dose: 02/17/2016 11:00) 3. levothyroxine 125 mcg Oral tab 1 tab once daily (Last dose: 02/17/2016 11:00) 4. lisinopril-hydrochlorothiazide 20-25 mg oral tab 1 tab once daily (Last dose: 02/17/2016 11:00) 5. metformin 1,000 mg Oral tab 2 tab 2 times per day (Last dose: 02/17/2016 11:00) 6. potassium chloride 10 mEq Oral cpER 1 cap once daily (Last dose: 02/17/2016 11:00) 7. simvastatin 40 mg oral tab 1 tab nightly (Last dose: 02/16/2016) 8. tamsulosin 0.4 mg oral cp24 1 cap once daily (Last dose: 02/16/2016) - PMHx: Hypothyroidism; Hypertension; Diabetes - NIDDM: controlled; Cancer, Brain; Cancer, Prostate; Cancer, Bone; Grave's Disease; - PSHx: brain surgery, tumor removal; eye surgery; - The history from nurses notes was reviewed: and I agree with what is documented. - Social history: Smoking status: Patient states former smoker of tobacco. No barriers to communication noted, The patient speaks fluent Greek. - Family history: Not pertinent. - : The pt / caregiver states he / she is not on anticoagulants. Home medication list is obtained from the patient. - Hospitalizations: : No recent hospitalization is reported. - Exposure Risk Screening:: None identified. - Immunization history:: All immunizations up-to-date. - Social history:: the patient is a non-smoker, the patient does not drink alcohol. ROS: 18:48 He denies any back or rib pain. pc 18:49 All systems are negative except as listed. pc Exam: 18:57 General Appearance: no acute distress, alert. pc 18:57 EENT: normal eye inspection, ears, nose and throat normal, pharynx normal, mucous membranes moist 18:57 Neck: The exam reveals no acute abnormalities. ROM is normal and painless. No nuchal rigidity is noted.. 18:57 Respiratory: no respiratory distress, normal breath sounds, chest non-tender. 18:57 CVS: regular pulse rate, regular rhythm, normal S1 and S2, no murmurs, strong peripheral pulses. 18:57 Abdomen: soft, non-tender, no organomegaly, normal bowel sounds. 18:57 Back: normal inspection. 18:57 Skin: skin color is normal, warm, dry. 18:57 Extremities: The extremities have a grossly normal appearance, are non-tender, without acute ROM abnormalities. 18:57 Neuro: oriented x 3, cranial nerves normal as tested, no motor deficits, no sensory deficits. 18:57 Psych: normal mood. Vital Signs: 18:10 BP 101 / 63; Pulse 93; Resp 18 S; Temp 97.5(O); Pulse Ox 100% on R/A; Weight 84.82 kg / gr2 187 lbs (R); Height 5 ft. 9 in. (175.26 cm) (R); Pain 3/10; 18:38 BP 106 / 63 Supine; Pulse 80; pml 18:38 BP 103 / 51 Sitting; Pulse 90; pml 18:38 BP 94 / 60 Standing; Pulse 97; pml 21:28 BP 114 / 58; Pulse 73; Resp 20; Temp 98.3; Pulse Ox 100% ; Pain 3/10; ko2 18:10 Body Mass Index 27.61 (84.82 kg, 175.26 cm) gr2 MDM: 18:43 Data reviewed: The patient's [facility] records were accessed, as they were informed. pc 18:48 Orthostatic VS ordered. pc 18:50 MED Profile Ordered. EDMS 18:50 TSH with Free T4 Ordered. EDMS 18:50 CBC with Diff Ordered. EDMS 18:50 CT Head Without Contrast Ordered. EDMS 18:58 Differential Diagnosis: orthostatic hypotension; prior craniotomy but with benign exam. pc Plan: labs, CT. 20:02 Consult PFS/PSA/Manager Sterile: Resources/Social Work ordered. mlc 20:34 MED Profile Reviewed. pc 20:34 TSH with Free T4 Reviewed. pc 20:34 CBC with Diff Reviewed. pc 20:34 CT Head Without Contrast Reviewed. pc 20:35 Data reviewed: old medical records, vital signs, nurses notes, lab test results, all pc radiology studies and available results. Test interpretation: LAB - all labs as ordered have been reviewed, interpreted and considered in the overall management of the clinical presentation; interpreted by Radiologist and personally reviewed, Head CT; no acute disease. The patient has been re-examined and re-evaluated. The clinical presentation did not require any ED treatment or interventions. Other consultation: The ED viscosity worker was notified and will evaluate the patient. 20:36 Disposition: The historical points, examination findings, and any diagnostic results pc supporting the provided diagnosis, were discussed with the patient or legal guardian. The need for outpatient follow up with the provider listed on their discharge instructions was discussed. They were encouraged to return to [facility], or the nearest ED, if symptoms worsen/persist, or for any other questions/concerns. 21:17 Consult PFS/PSA/Manager Sterile: Resources/Social Work complete. mar 03: Financial registration complete. :23 Undo -Financial registration. : Financial registration complete. 22:24 [facility] Payment Agreement was scanned into [email or web address] and attached to record. Signatures: Dispatcher [employer] EDMS José Mcknight MD MD pc Newman, Jill New RN RN Dorota Alejandro RN RN [id number] Denise Watts RN RN Isabelle Dodd RN RN [facility] [place] Dominique Power RN RN [id number] Sherie Kelly, Reg Reg [id number] The chart was reviewed and I authenticate all verbal orders and agree with the evaluation and treatment provided.Corrections: (The following items were deleted from the chart) 20:02 19:46 Consult: Painting Worker ordered. [facility] Attachments: 22:24 [facility] Payment Agreement 16 Chart Complete MTDD
== END 2016-02-17 21:29 | disposition home or self-care (01) ==
LOC: M ED 18:08
DX: I95.1 Orthostatic hypotension (principal); C61 Malignant neoplasm of prostate; C79.51 Secondary malignant neoplasm of bone; I10 Essential (primary) hypertension; E11.9 Type 2 diabetes mellitus without complications; E03.9 Hypothyroidism, unspecified; Z92.3 Personal history of irradiation; Z85.841 Personal history of malignant neoplasm of brain; Z79.82 Long term (current) use of aspirin; Z79.52 Long term (current) use of systemic steroids; Z79.84 Long term (current) use of oral hypoglycemic drugs; Z79.899 Other long term (current) drug therapy

== ENCOUNTER → 2016-02-23 | Outpatient (CLI) | payer OTHER ==
[2016-02-23 09:15] LABS: MEAN CORPUSCULAR HEMOGLOBIN 30.8 pg (27.0-33.0); MEAN CORPUSCULAR HGB CONC 34.5 g/dl (32.0-36.5); MEAN CORPUSCULAR VOLUME 89.2 fl (80.0-96.0); RED CELL DISTRIBUTION WIDTH 12.6 % (11.5-14.5); WHITE BLOOD COUNT 5.2 K/mm3 (4.0-10.0)
[2016-02-23 09:34] LABS: ALBUMIN 3.9 GM/DL (3.2-5.2); ALBUMIN/GLOBULIN RATIO 1.26 (1.00-1.93); BILIRUBIN,TOTAL 0.8 MG/DL (0.2-1.0); CALCIUM LEVEL 9.5 MG/DL (8.8-10.2); CREATININE FOR GFR 1.81 MG/DL (0.70-1.30); GLOMERULAR FILTRATION RATE 40.1 (>49); MAGNESIUM LEVEL 2.1 MG/DL (1.8-2.4); POTASSIUM SERUM 4.1 MEQ/L (3.5-5.1)
== END ==
LOC: M WUC 08:04
PROVIDERS: ATTEND Nurse Practitioner Family
DX: E55.9 Vitamin D deficiency, unspecified (principal); I10 Essential (primary) hypertension; E11.9 Type 2 diabetes mellitus without complications

== ENCOUNTER → 2016-03-01 | Outpatient (CLI) | payer OTHER ==
[2016-03-01 09:31] LABS: ANION GAP 11 MEQ/L (8-16); BLOOD UREA NITROGEN 17 MG/DL (7-18); CALCIUM LEVEL 8.8 MG/DL (8.8-10.2); CARBON DIOXIDE LEVEL 23 MEQ/L (21-32); CHLORIDE LEVEL 108 MEQ/L (98-107); CREATININE FOR GFR 1.26 MG/DL (0.70-1.30); GLOMERULAR FILTRATION RATE > 60.0 (>49); GLUCOSE, FASTING 107 MG/DL (80-110); POTASSIUM SERUM 3.9 MEQ/L (3.5-5.1); SODIUM LEVEL 142 MEQ/L (136-145)
== END ==
LOC: M WUC 08:09
PROVIDERS: ATTEND Nurse Practitioner Family
DX: N19 Unspecified kidney failure (principal)

== ENCOUNTER → 2016-03-18 | Outpatient (REF) | payer OTHER | LOC: M LAB REF 17:11 | PROVIDERS: ATTEND Internal Medicine Medical Oncology | DX: C61 Malignant neoplasm of prostate (principal) ==

== ENCOUNTER → 2016-05-15 | Outpatient (CLI) | payer OTHER ==
--- NOTE | 2016-05-15 16:11 | REP ---
Whole body radionuclide bone scan: Whole-body scanning is performed. Additionally lateral views of the calvarium and ankles and feet are performed as well as oblique views of the ribs and pelvis. Comparison is 11/13/2015, outside study from [facility] there are. There is a focus of uptake in the the occiput of the calvarium as previously. This is unchanged. There is a focus of uptake in the right parietal calvarium. This has decreased in size. There is a degenerative pattern of uptake in the shoulders. There are multiple foci of uptake in the ribs bilaterally, however, decreased in number from the prior study. There are multiple foci of uptake in the thoracic and lumbar spine, however, decreased in number. There is a single focus of uptake along the anterior margin of the left iliac crest as previously. There is a focal zone of uptake at the superior portion of the right sacroiliac articulation, similar to the prior study. Previously there were multiple other foci of pelvic uptake, however these are no longer present. There are multiple small foci of uptake in the tarsal ossicles bilaterally, nonspecific, degenerative, traumatic versus metastatic. These were not identified on the prior study. The study is performed with 22.0 mCi of technetium 99m labeled MDP Signed by Javier Timmons MD 05/15/2016 04:01 P
== END ==
LOC: M RAD 09:13
PROVIDERS: ATTEND Internal Medicine Medical Oncology
DX: C61 Malignant neoplasm of prostate (principal)
CPT/HCPCS: 78306; A9503

== ENCOUNTER → 2016-05-22 | Outpatient (REF) | payer OTHER | LOC: M LAB REF 17:10 | PROVIDERS: ATTEND Internal Medicine Medical Oncology | DX: C61 Malignant neoplasm of prostate (principal) ==

== ENCOUNTER → 2016-05-29 | Outpatient (CLI) | payer OTHER ==
--- NOTE | 2016-05-30 06:24 | RADONC ---
RADIATION ONCOLOGY FOLLOWUP NOTE DATE: 05/29/2016 CHART NUMBER: [id number]. DIAGNOSIS: Prostate cancer. STAGE: IV. ECOG PERFORMANCE STATUS: Zero. FOLLOWUP NOTE: Mr. Abebe is a 65-year-old white male with the diagnosis of widely metastatic adenocarcinoma of prostate who is presenting to us today for routine followup visit 4 months post completion of external beam radiation therapy. The patient presents today reporting that he is doing quite well with no complaints at this time related to his radiation therapy or disease. He claims to be having no pain and says he has done well with the radiation. The patient does however have a whole slew of financial complaints. Reports that he is unable to make his bills and is getting hounded by collection agents continuously. He reports that he is unable to afford any of the various treatments and studies requested by his physicians. He has asked to be discharged from our followup except as an on as needed basis due to the financial constraints he is under. REVIEW OF SYSTEMS: The patient's review of systems is noncontributory. Denies nausea, vomiting, fevers, chills, night sweats, diplopia, headaches, anxiety or depression, anorexia, weight loss, visual disturbances, chest pain, urinary or bowel difficulties, bone pain, or neurological problems. PHYSICAL EXAMINATION: The patient is a well-developed, well-nourished white male in no acute distress. HEENT: Exam is normocephalic, atraumatic. He has some drooping of his left eyelid. There is no palpable cervical, supraclavicular, infraclavicular, axillary or inguinal lymphadenopathy present. His lungs are clear to auscultation and percussion. His heart has regular rate and rhythm. His abdomen is benign with no hepatosplenomegaly, masses or tenderness. Skeletal examination reveals no tenderness to pressure percussion of the bony skeleton. Extremities reveal no clubbing, cyanosis or edema. ASSESSMENT: Mr. Abebe is presently under close care with Dr. Valentino. He is being seen by there on a monthly basis. In light of this and at his request, I have discharged him from our followup except on an as needed basis. cc: MD Ashanti Wang, THOMPSON *Rafiq Earl MD
== END ==
LOC: M ONCR 13:15
PROVIDERS: ATTEND Radiology Radiation Oncology
DX: C61 Malignant neoplasm of prostate (principal); C79.51 Secondary malignant neoplasm of bone

== ENCOUNTER → 2016-06-19 | Outpatient (REF) | payer OTHER | LOC: M LAB REF 16:28 | PROVIDERS: ATTEND Internal Medicine Medical Oncology | DX: C61 Malignant neoplasm of prostate (principal) ==

== ENCOUNTER → 2016-07-29 | Outpatient (REF) | payer OTHER | LOC: M LAB REF 16:43 | PROVIDERS: ATTEND Internal Medicine Medical Oncology | DX: C61 Malignant neoplasm of prostate (principal) ==

== ENCOUNTER → 2016-08-06 | Outpatient (CLI) | payer OTHER ==
[~2016-08-06] MED LIST changes: +GASTROGRAFIN SOLUTION 30ML (Q9963) As Ordered ONE; +ISOVUE-370 76% 100ML VIAL (Q9967) As Ordered ONE
--- NOTE | 2016-08-06 14:50 | REP ---
Clinical: Prostate cancer for restaging. Technique: Axial contrast enhanced images from the lung bases to the pubic symphysis using oral and 100 ml Isovue 370 intravenous contrast material with precontrast and delayed images of the abdomen as well as coronal and sagittal re-formations. Comparison: 11/09/2015. Findings: The lung bases are clear. Visualized heart and pericardium are normal / stable. Liver demonstrates scattered subcentimeter hypodensities compatible with cysts and stable. No focal hepatic lesion identified. Spleen, pancreas, gallbladder, bilateral adrenal glands and kidneys are relatively normal / stable. Renal hypodensities are again noted and compatible with cysts - the largest of which is noted in the left parapelvic location measuring 3 cm. The enteric system is without obstruction or acute inflammatory process. Sigmoid diverticula noted without acute diverticulitis. 1 cm fat containing periumbilical hernia noted. Pelvis demonstrates normal bladder. The prostate gland is essentially unremarkable by CT and measures 3.5 cm maximal diameter. No significant pelvic, retroperitoneal, or intraperitoneal adenopathy is appreciated. No pelvic fluid or ascites. No free air. Atherosclerotic changes to the vasculature noted without aneurysm or dissection. Musculoskeletal structures demonstrate scattered sclerotic foci within the vertebral bodies, sacrum, and pelvis which appear to be increased from prior examination. Specifically, multiple discrete foci within the right iliac body and within the sacrum are now visualized and relatively new compared to prior. Impression: 1. Slight increase in discrete focal sclerotic lesions within the pelvis. 2. Bilateral renal cysts similar to prior examination. 3. 1 cm fat containing periumbilical hernia. 4. No ascites, obvious adenopathy or focal soft tissue mass lesions identified. Signed by Pancho Ralph MD 08/06/2016 02:41 P
== END ==
LOC: M RAD 12:33
PROVIDERS: ATTEND Internal Medicine Medical Oncology
DX: C61 Malignant neoplasm of prostate (principal)
CPT/HCPCS: 74178; Q9963; Q9967

== ENCOUNTER → 2016-10-23 | Outpatient (REF) | payer OTHER ==
[~2016-10-23] MED LIST changes: +ASPI325T24 PO; -ASPI32ECTA PO; -GASTROGRAFIN SOLUTION 30ML (Q9963) As Ordered ONE; -ISOVUE-370 76% 100ML VIAL (Q9967) As Ordered ONE; -METF1000 PO; +METF10004 PO
== END ==
LOC: M LAB REF 16:38
PROVIDERS: ATTEND Internal Medicine Medical Oncology
DX: C61 Malignant neoplasm of prostate (principal)

== ENCOUNTER → 2017-07-29 | Outpatient (CLI) | payer OTHER ==
[~2017-07-29] MED LIST changes: -AMLO5TAB2 PO; -ASPI325T24 PO; -BACT800T5 PO; -BICA50TA2 PO; -FLOM5CAP PO; -FURO20TA2 PO; +GASTROGRAFIN SOLUTION 30ML (Q9963) As Ordered; -GLYB5TA PO; -INVO100T PO; +ISOVUE-370 76% 100ML VIAL (Q9967) As Ordered; -LISI20TA3 PO; -MAPA325T2 PO; -METF10004 PO; -POTA10CA PO; -SYNT125T PO; -TRAD5TAB PO; -ZOCO40TA PO
[2017-07-29 09:48] LABS: HEMATOCRIT 32.7 % (42.0-52.0); HEMOGLOBIN 10.9 g/dl (13.5-17.5); MEAN CORPUSCULAR HEMOGLOBIN 29.9 pg (27.0-33.0); MEAN CORPUSCULAR HGB CONC 33.3 g/dl (32.0-36.5); MEAN CORPUSCULAR VOLUME 89.8 fl (80.0-96.0); PLATELET COUNT, AUTOMATED 264 10^3/uL (150-450); RED BLOOD COUNT 3.64 10^6/uL (4.30-6.10); RED CELL DISTRIBUTION WIDTH 13.9 % (11.5-14.5); WHITE BLOOD COUNT 4.5 10^3/uL (4.0-10.0)
[2017-07-29 10:52] LABS: ALBUMIN 3.7 GM/DL (3.2-5.2); ALBUMIN/GLOBULIN RATIO 1.23 (1.00-1.93); ALKALINE PHOSPHATASE 57 U/L (45-117); ALT/SGPT 15 U/L (12-78); ANION GAP 11 MEQ/L (8-16); AST/SGOT 8 U/L (7-37); BILIRUBIN,TOTAL 0.9 MG/DL (0.2-1.0); BLOOD UREA NITROGEN 21 MG/DL (7-18); CALCIUM LEVEL 8.1 MG/DL (8.8-10.2); CARBON DIOXIDE LEVEL 26 MEQ/L (21-32); CHLORIDE LEVEL 105 MEQ/L (98-107); CHOLESTEROL LEVEL 171 MG/DL (<200); CHOLESTEROL RISK RATIO 2.035 (<5); CPK CREATINE PHOSPHOKINASE 60 U/L (39-308); CREATININE FOR GFR 1.19 MG/DL (0.70-1.30); FREE T4 1.46 NG/DL (0.76-1.46); GLOMERULAR FILTRATION RATE > 60.0 (>49); GLUCOSE, FASTING 94 MG/DL (70-100); HDL CHOLESTEROL 84 MG/DL (>40); LDL CHOLESTEROL 76.2 MG/DL (<100); NON-HDL-C 87 MG/DL; POTASSIUM SERUM 3.9 MEQ/L (3.5-5.1); SODIUM LEVEL 142 MEQ/L (136-145); THYROID STIMULATING HORMONE 0.043 uIU/ML (0.358-3.740); TOTAL PROTEIN 6.7 GM/DL (6.4-8.2); TRIGLYCERIDES LEVEL 54 MG/DL (<150)
[2017-07-29 10:54] LABS: MALB URINE SIEMENS 57.2 MG/L; MAU/CREAT RATIO 45.3 MCG/MG (0.0-30.0)
[2017-07-29 18:10] LABS: ESTIMATED AVERAGE GLUCOSE 120 MG/DL (60-110); HEMOGLOBIN A1c 5.8 %
== END ==
LOC: M RAD 15:00
DX: C79.51 Secondary malignant neoplasm of bone (principal); Z85.841 Personal history of malignant neoplasm of brain; E03.9 Hypothyroidism, unspecified; E11.9 Type 2 diabetes mellitus without complications; I10 Essential (primary) hypertension; R29.810 Facial weakness; R11.2 Nausea with vomiting, unspecified; R63.4 Abnormal weight loss; R14.0 Abdominal distension (gaseous)
CPT/HCPCS: Q9963

== ENCOUNTER → 2017-08-27 | Outpatient (REF) | payer OTHER ==
[2017-08-27 15:36] LABS: PROSTATIC SPECIFIC AG MONITOR 0.02 NG/ML (< 4.0)
[2017-08-27 15:52] LABS: TESTOSTERONE 19 NG/DL (241-827)
== END ==
LOC: M LAB REF 14:05
DX: C61 Malignant neoplasm of prostate (principal); C79.51 Secondary malignant neoplasm of bone; C79.31 Secondary malignant neoplasm of brain
CPT/HCPCS: 84403

== ENCOUNTER → 2018-11-18 | Outpatient (CLI) | payer MEDICARE ==
[~2018-11-18] MED LIST changes: +AMLO5TAB6 PO; +ASPI-255 PO; +BACT800T5 PO; +BICA50TA9 PO; +FLOM0.4C39 PO; +FURO20TA2 PO; -GASTROGRAFIN SOLUTION 30ML (Q9963) As Ordered; +GASTROGRAFIN SOLUTION 30ML (Q9963) As Ordered ONE; +GLYB-147 PO; +GLYB5TA PO; +INVO100T PO; -ISOVUE-370 76% 100ML VIAL (Q9967) As Ordered; +ISOVUE-370 76% 100ML VIAL (Q9967) As Ordered ONE; +KLOR10TA76 PO; +LISI10TA4 PO; +LISI20TA20 PO; +MAPA325T2 PO; +METF10004 PO; +POLY1POW38; +PRED25TA PO; +PROM25TA12; +SYNT125T PO; +TRAD5TAB PO; +XTAN40CA; +XTAN40CA PO; +ZOCO40TA PO
--- NOTE | 2018-11-18 12:23 | REP ---
CT of the chest with IV contrast: There is a tiny calcified granuloma in the left lower lobe on image 59. There are no other lung nodules or masses. There are no infiltrates. There are no pleural effusions. There is no mediastinal, hilar or axillary lymphadenopathy. The thoracic aorta is unremarkable. Cardiac size is normal. The there is calcified atheroma in the coronary arteries. There are blastic metastases in almost all of the thoracic vertebral bodies. There are blastic metastases in the most of the ribs bilaterally. There are blastic metastases in the clavicular heads and manubrium. Impression: Multiple skeletal blastic metastases as described. No lung metastases are identified. There is no adenopathy. No infiltrates or pleural effusions. Electronically Signed by Javier Timmons MD 11/18/2018 12:14 P
--- NOTE | 2018-11-18 12:32 | REP ---
CT of the abdomen and pelvis with IV and oral contrast: The studies performed. Contiguous with the chest CT this same date. There are several tiny hepatic hypodensities, unchanged, likely cysts. The hepatic parenchyma is otherwise homogeneous and unremarkable. The gallbladder, pancreas, spleen, adrenals and kidneys are unchanged. There is bilateral renal cortical atrophy, unchanged. There are bilateral renal cortical cysts, unchanged. There is no hydronephrosis. The abdominal aorta is unremarkable. There is no periaortic adenopathy or mass. There is no mesenteric adenopathy or mass. There is no ascites. The bowel loops are unremarkable except for sigmoid colon diverticulosis without diverticulitis. Pelvis: The appendix is unremarkable. There is no ascites. There is no pelvic adenopathy. There are numerous blastic skeletal metastases in the lumbar spine, sacrum, iliac wings, initially I N pubic symphysis on the right. This is unchanged. Impression: There are numerous skeletal blastic metastases as described. There is no abdominal adenopathy or mass. There are no hepatic metastases. There are bilateral renal cortical cysts and bilateral renal cortical thinning. There is no hydronephrosis. There is sigmoid colon diverticulosis without diverticulitis. No significant change from the prior study. Electronically Signed by Javier Timmons MD 11/18/2018 12:23 P
--- NOTE | 2018-11-18 13:06 | REP ---
Whole body radionuclide bone scan: History: Prostate carcinoma with metastasis to bone. Comparison scintigraphy is from May 15, 2016. Comparison is also made with CT study abdomen and pelvis and chest from November 18, 2018. Technique: 22.0 mCi technetium 99m MDP is injected and standard whole body bone scan images are acquired. Scintigraphic findings: There are numerous foci of increased uptake distributed in the axial skeleton fairly extensively consistent with skeletal metastatic disease. These are increased in size, number, and activity since the 2017 prior study consistent with some progression. The most extensive involvement is seen in the left pelvis and iliac bone. There are bilateral femur lesions in the subtrochanteric and intertrochanteric region, left larger than right. Multiple bilateral rib lesions are seen along with T-spine and L-spine lesions. There is a focus of increased uptake in the right calvarium as well. These correspond with this blastic skeletal foci seen on CT scanning. Impression: Widespread skeletal metastatic disease, progressed scintigraphically since the May 15, 2016 prior study. The most extensive involvement is confluent uptake pattern in the left iliac bone in the pelvis. Electronically Signed by Rafiq Whitt MD 11/18/2018 03:47 P
== END ==
LOC: M RAD 08:11
PROVIDERS: ATTEND Nurse Practitioner Family
DX: C61 Malignant neoplasm of prostate (principal); C79.51 Secondary malignant neoplasm of bone; J84.10 Pulmonary fibrosis, unspecified; I25.10 Atherosclerotic heart disease of native coronary artery without angina pectoris; K57.30 Diverticulosis of large intestine without perforation or abscess without bleeding
CPT/HCPCS: 71260; 74177; 78306; A9503; Q9963; Q9967

== ENCOUNTER 2018-12-20 18:08 | Emergency (ER) | payer MEDICARE ==
[~2018-12-20] VITALS: Ht 175.3 cm; Wt 75.9 kg
[~2018-12-20 18:08] MED LIST changes: -GASTROGRAFIN SOLUTION 30ML (Q9963) As Ordered ONE; -ISOVUE-370 76% 100ML VIAL (Q9967) As Ordered ONE
[2018-12-20] MEDS ORDERED: [UNRECOGNIZED DRUG - OTHER] PO (18:34)
[2018-12-20] MEDS ORDERED: ONDANSETRON 4MG/2ML VIAL (J2405) IV ONE (18:45)
[2018-12-20] MEDS ORDERED: NS 1,000 ML IV ONE (18:45)
[2018-12-20 18:54] LABS: BASO % 0.3 % (0.0-1.0); EOS % 0.5 % (0.0-3.0); HEMATOCRIT 38.7 % (42.0-52.0); HEMOGLOBIN 12.1 g/dl (13.5-17.5); LYMPH # 0.3 10^3/uL (1.5-5.0); LYMPH % 3.9 % (24.0-44.0); MEAN CORPUSCULAR HEMOGLOBIN 29.4 pg (27.0-33.0); MEAN CORPUSCULAR HGB CONC 31.3 g/dl (32.0-36.5); MEAN CORPUSCULAR VOLUME 93.9 fl (80.0-96.0); MONO # 0.3 10^3/uL (0.0-0.8); MONO % 4.3 % (0.0-5.0); NEUTROPHILS # 6.7 10^3/uL (1.5-8.5); NEUTROPHILS % 90.6 % (36.0-66.0); PLATELET COUNT, AUTOMATED 461 10^3/uL (150-450); RED BLOOD COUNT 4.12 10^6/uL (4.30-6.10); WHITE BLOOD COUNT 7.4 10^3/uL (4.0-10.0)
[2018-12-20 19:27] LABS: ALBUMIN 3.5 GM/DL (3.2-5.2); BILIRUBIN,TOTAL 0.5 MG/DL (0.2-1.0); CALCIUM LEVEL 8.8 MG/DL (8.8-10.2); CREATININE FOR GFR 1.58 MG/DL (0.70-1.30); GLOMERULAR FILTRATION RATE 46.5 (>49); POTASSIUM SERUM 3.7 MEQ/L (3.5-5.1); TOTAL PROTEIN 8.5 GM/DL (6.4-8.2)
--- NOTE | 2018-12-20 19:33 | REPVR ---
PROCEDURE INFORMATION: Exam: CT Abdomen And Pelvis Without Contrast Exam date and time: 12/20/2018 6:53 PM Clinical history: 68 years old, male; Abdominal pain; Generalized; Additional info: N/v/d TECHNIQUE: Imaging protocol: Computed tomography of the abdomen and pelvis without contrast. Radiation optimization: All CT scans at this facility use at least one of these dose optimization techniques: automated exposure control; mA and/or kV adjustment per patient size (includes targeted exams where dose is matched to clinical indication); or iterative reconstruction. COMPARISON: CT ABD PELVIS WITH CONTRAST 2018-11-18 10:01 FINDINGS: Limitations: Study is limited by the absence of contrast. Mediastinum: Small gastroesophageal sliding type hiatal hernia. Liver: Small, less than 5 mm, liver hypodensity. Highly likely to be benign and does not require follow-up imaging or biopsy per ACR. Gallbladder and bile ducts: Normal. No calcified stones. No ductal dilation. Pancreas: Mild chronic pancreatitis. Spleen: Normal. No splenomegaly. Adrenals: Normal. No mass. Kidneys and ureters: 3.4 cm left renal cyst. Punctate nonobstructing right renal calculus. 1 cm right renal cyst. Renal cortical thinning and atrophy. Stomach and bowel: Excessive fluid in the small and large bowel, correlate for diarrheal illness or enteritis. Mild colonic diverticulosis without evidence for acute diverticulitis. Appendix: No evidence of appendicitis. Intraperitoneal space: Unremarkable. No free air. No significant fluid collection. Vasculature: Unremarkable. No abdominal aortic aneurysm. Lymph nodes: Unremarkable. No enlarged lymph nodes. Bladder: Unremarkable as visualized. Reproductive: Unremarkable as visualized. Bones/joints: Sclerotic osseous metastases. Soft tissues: Small fat protruding umbilical hernia. Small inguinal hernias. IMPRESSION: 1. Excessive fluid in the small and large bowel, correlate for diarrheal illness or enteritis. 2. Sclerotic osseous metastases. COMMENT: Consistent with the [employer]'s Incidental Findings Committee Report (J Am Tonio Radiol 2010): Unless the patient's specific circumstances suggest otherwise, any liver lesion 0.5 cm or less, any cystic kidney lesion less than 1.0 cm, and/or any adrenal lesion 1.0 cm or less not otherwise characterized in this report as possessing suspicious or indeterminate imaging features is/are highly likely to be benign and do not require follow-up imaging or biopsy. Electronically signed by: Gilbert Saldivar On 12/20/2018 19:32:50 PM
[2018-12-20] MEDS ORDERED: ZOFR4TAB16 PO (20:26)
[2018-12-20 21:15] VITALS: BP 116/71
--- NOTE | 2018-12-21 07:04 | ED PDOC ---
Post-Departure Follow-Up radiology report faxed to Andree Yanez MD Dec 21, 2018 07:04
--- NOTE | 2018-12-22 07:26 | ECGEPIP ---
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
[2018-12-24] MEDS ORDERED: XTAN40CA PO (09:11)
== END 2018-12-20 21:41 | disposition home or self-care (01) ==
LOC: M ED 18:08
DX: K52.9 Noninfective gastroenteritis and colitis, unspecified (principal); N28.9 Disorder of kidney and ureter, unspecified; E07.9 Disorder of thyroid, unspecified; N40.0 Benign prostatic hyperplasia without lower urinary tract symptoms; Z79.899 Other long term (current) drug therapy; Z79.890 Hormone replacement therapy; Z79.82 Long term (current) use of aspirin; Z88.5 Allergy status to narcotic agent; F17.210 Nicotine dependence, cigarettes, uncomplicated
CPT/HCPCS: 74176; 80053; 82150; 83690; 85025; 93005; 93041; 96374; 99285; J2405

== ENCOUNTER → 2019-01-20 | Outpatient (CLI) | payer MEDICARE ==
[~2019-01-20] MED LIST changes: +OXYC15TA76 PO; +ZOFR4TAB16 PO; +[UNRECOGNIZED DRUG - OTHER] PO
--- NOTE | 2019-01-20 17:18 | REP ---
Left femur: Four views. History: Malignant neoplasm of the prostate. Findings: Four views of the left femur demonstrate vascular calcification. No bony destructive or blastic lesion is seen. Impression: Negative left femur radiographs. Some vascular calcification. Electronically Signed by Rafiq Whitt MD 01/20/2019 05:09 P
--- NOTE | 2019-01-20 17:34 | REP ---
Pelvis: Single AP view. History: Malignant neoplasm of the prostate. Comparison pelvic CT images December 20, 2018. Comparison bone scan November 18, 2018. Comparison pelvic CT images August 06, 2016. Findings: There is a large sclerotic area in the periacetabular region of the left iliac bone. This extends into the proximal superior pubic ramus on the left. No lytic destructive lesion is seen. This appears more extensive than on the [address] study. No other blastic or lytic metastatic lesions are visible on plain radiograph. Impression: Large blastic lesion in the left iliac bone adjacent to the acetabulum. Electronically Signed by Rafiq Whitt MD 01/20/2019 05:44 P
--- NOTE | 2019-01-20 17:35 | REP ---
Left knee series: Five views. History: Malignant neoplasm of the prostate. Findings: Five views of the left knee show no evidence of sclerotic or lytic focal destructive lesion. Vascular calcification is noted. There is minimal hypertrophy of the patella on the sunrise view consistent with early osteoarthritis. Impression: Vascular calcification. Early patellar spurring. Otherwise negative. Electronically Signed by Rafiq Whitt MD 01/20/2019 05:44 P
== END ==
LOC: M RAD 14:01
PROVIDERS: ATTEND Internal Medicine Hematology
DX: C61 Malignant neoplasm of prostate (principal)

== ENCOUNTER → 2019-06-08 | Outpatient (CLI) | payer MEDICARE ==
[~2019-06-08] MED LIST changes: +ABIR250T PO; +CALC1TAB42 PO; +LUPR45IN IM; +METF500T13 PO; +OXYC-1 PO; -OXYC15TA76 PO; +PRED5PAK PO
[2019-06-08 14:46] LABS: BASO % 0.7 % (0.0-1.0); EOS # 0.1 10^3/uL (0.0-0.5); EOS % 2.5 % (0.0-3.0); HEMATOCRIT 33.9 % (42.0-52.0); HEMOGLOBIN 10.8 g/dl (13.5-17.5); LYMPH # 0.7 10^3/uL (1.5-5.0); LYMPH % 16.7 % (24.0-44.0); MEAN CORPUSCULAR HEMOGLOBIN 28.3 pg (27.0-33.0); MEAN CORPUSCULAR HGB CONC 31.9 g/dl (32.0-36.5); MONO # 0.4 10^3/uL (0.0-0.8); MONO % 8.7 % (0.0-5.0); NEUTROPHILS # 3.1 10^3/uL (1.5-8.5); NEUTROPHILS % 70.7 % (36.0-66.0); PLATELET COUNT, AUTOMATED 457 10^3/uL (150-450); RED BLOOD COUNT 3.81 10^6/uL (4.30-6.10); WHITE BLOOD COUNT 4.4 10^3/uL (4.0-10.0)
[2019-06-08 15:29] LABS: ALBUMIN 3.2 GM/DL (3.2-5.2); BILIRUBIN,TOTAL 0.7 MG/DL (0.2-1.0); CALCIUM LEVEL 8.6 MG/DL (8.8-10.2); CREATININE FOR GFR 1.39 MG/DL (0.70-1.30); GLOMERULAR FILTRATION RATE 53.8 (>42); POTASSIUM SERUM 4.4 MEQ/L (3.5-5.1); TOTAL PROTEIN 7.4 GM/DL (6.4-8.2)
== END ==
LOC: M LAB 14:19
PROVIDERS: ATTEND Internal Medicine Hematology
DX: R97.20 Elevated prostate specific antigen [PSA] (principal)

== ENCOUNTER → 2019-07-06 | Outpatient (CLI) | payer MEDICARE ==
[~2019-07-06] MED LIST changes: -MAPA325T2 PO; +MAPA325T8 PO
[2019-07-06 13:53] LABS: HEMATOCRIT 29.4 % (42.0-52.0); HEMOGLOBIN 9.5 g/dl (13.5-17.5); MEAN CORPUSCULAR HGB CONC 32.3 g/dl (32.0-36.5); MEAN CORPUSCULAR VOLUME 89.6 fl (80.0-96.0); PLATELET COUNT, AUTOMATED 417 10^3/uL (150-450); RED BLOOD COUNT 3.28 10^6/uL (4.30-6.10); WHITE BLOOD COUNT 5.4 10^3/uL (4.0-10.0)
[2019-07-06 14:24] LABS: MALB URINE SIEMENS 49.2 MG/L; MAU/CREAT RATIO 25.1 MCG/MG (0.0-30.0)
[2019-07-06 14:32] LABS: ALBUMIN 2.8 GM/DL (3.2-5.2); ALT/SGPT 11 U/L (12-78); BILIRUBIN,TOTAL 0.5 MG/DL (0.2-1.0); BLOOD UREA NITROGEN 18 MG/DL (7-18); CALCIUM LEVEL 8.3 MG/DL (8.8-10.2); CARBON DIOXIDE LEVEL 25 MEQ/L (21-32); CHLORIDE LEVEL 103 MEQ/L (98-107); CHOLESTEROL LEVEL 179 MG/DL (<200); CHOLESTEROL RISK RATIO 2.671 (<5); CPK CREATINE PHOSPHOKINASE 55 U/L (39-308); CREATININE FOR GFR 0.93 MG/DL (0.70-1.30); FREE T4 1.81 NG/DL (0.76-1.46); GLOMERULAR FILTRATION RATE > 60.0 (>42); GLUCOSE, FASTING 92 MG/DL (70-100); HDL CHOLESTEROL 67 MG/DL (>40); LDL CHOLESTEROL 92 MG/DL (<100); NON-HDL-C 112 MG/DL; POTASSIUM SERUM 3.7 MEQ/L (3.5-5.1); SODIUM LEVEL 135 MEQ/L (136-145); THYROID STIMULATING HORMONE 0.055 uIU/ML (0.358-3.740); TOTAL PROTEIN 6.7 GM/DL (6.4-8.2); TRIGLYCERIDES LEVEL 99 MG/DL (<150)
[2019-07-06 15:14] LABS: HEMOGLOBIN A1c 5.9 %
== END ==
LOC: M LAB 12:52
PROVIDERS: ATTEND Internal Medicine Cardiovascular Disease
DX: I10 Essential (primary) hypertension (principal); E78.5 Hyperlipidemia, unspecified; E11.9 Type 2 diabetes mellitus without complications; E03.9 Hypothyroidism, unspecified; C61 Malignant neoplasm of prostate

== ENCOUNTER → 2019-07-06 | Outpatient (CLI) | payer MEDICARE ==
[2019-07-06 13:53] LABS: BASO % 0.6 % (0.0-1.0); EOS # 0.1 10^3/uL (0.0-0.5); EOS % 1.8 % (0.0-3.0); HEMATOCRIT 29.3 % (42.0-52.0); HEMOGLOBIN 9.7 g/dl (13.5-17.5); LYMPH # 0.9 10^3/uL (1.5-5.0); LYMPH % 16.6 % (24.0-44.0); MEAN CORPUSCULAR HEMOGLOBIN 29.7 pg (27.0-33.0); MEAN CORPUSCULAR HGB CONC 33.1 g/dl (32.0-36.5); MEAN CORPUSCULAR VOLUME 89.6 fl (80.0-96.0); MONO # 0.4 10^3/uL (0.0-0.8); MONO % 7.9 % (0.0-5.0); NEUTROPHILS # 3.9 10^3/uL (1.5-8.5); NEUTROPHILS % 72.2 % (36.0-66.0); PLATELET COUNT, AUTOMATED 411 10^3/uL (150-450); RED BLOOD COUNT 3.27 10^6/uL (4.30-6.10); WHITE BLOOD COUNT 5.4 10^3/uL (4.0-10.0)
[2019-07-06 14:36] LABS: ALBUMIN 2.8 GM/DL (3.2-5.2); ALT/SGPT 10 U/L (12-78); BILIRUBIN,TOTAL 0.5 MG/DL (0.2-1.0); BLOOD UREA NITROGEN 18 MG/DL (7-18); CALCIUM LEVEL 8.3 MG/DL (8.8-10.2); CARBON DIOXIDE LEVEL 26 MEQ/L (21-32); CHLORIDE LEVEL 103 MEQ/L (98-107); CREATININE FOR GFR 0.94 MG/DL (0.70-1.30); GLOMERULAR FILTRATION RATE > 60.0 (>42); GLUCOSE, FASTING 91 MG/DL (70-100); POTASSIUM SERUM 3.7 MEQ/L (3.5-5.1); SODIUM LEVEL 138 MEQ/L (136-145); TOTAL PROTEIN 6.6 GM/DL (6.4-8.2)
== END ==
LOC: M LAB 12:56
PROVIDERS: ATTEND Internal Medicine Hematology
DX: C61 Malignant neoplasm of prostate (principal)

== ENCOUNTER 2019-07-14 12:24 | Emergency (ER) | payer MEDICARE ==
[~2019-07-14] VITALS: Ht 175.3 cm; Wt 70.5 kg
[2019-07-14] MEDS ORDERED: NAPROXEN 250 MG TAB PO ONE (13:15)
--- NOTE | 2019-07-14 13:54 | REP ---
LEFT FEMUR: AP and lateral view of the left femur performed. No acute fracture or dislocation is seen. Sclerotic metastatic lesions are again noted in the proximal left femur and throughout the osseous structures of the pelvis. There are mild degenerative changes at the hip joint. Electronically Signed by Javier Waters MD 07/15/2019 07:08 P
[2019-07-14] MEDS ORDERED: NAPR-837 PO ×2 (13:55→14:18)
[2019-07-14 14:15] VITALS: BP 139/76
[2019-08-01] MEDS ORDERED: BICA50TA9 (00:06)
== END 2019-07-14 14:16 | disposition home or self-care (01) ==
LOC: M ED 12:24
DX: M79.605 Pain in left leg (principal); I10 Essential (primary) hypertension; E11.9 Type 2 diabetes mellitus without complications; E78.00 Pure hypercholesterolemia, unspecified; F41.9 Anxiety disorder, unspecified; F17.200 Nicotine dependence, unspecified, uncomplicated; Z85.830 Personal history of malignant neoplasm of bone; Z85.46 Personal history of malignant neoplasm of prostate; Z79.82 Long term (current) use of aspirin; Z79.84 Long term (current) use of oral hypoglycemic drugs; Z79.899 Other long term (current) drug therapy

== ENCOUNTER 2019-07-22 00:22 | Emergency (ER) | payer MEDICARE ==
[~2019-07-22] VITALS: Ht 175.3 cm; Wt 70.5 kg
[~2019-07-22 00:22] MED LIST changes: +NAPR-837 PO
[2019-07-22] MEDS ORDERED: NORCO, ANEXSIA 5/325MG TABLET (HYDROcodone/ACETAMINOPHEN) PO ONE (01:00)
[2019-07-22] MEDS ORDERED: NORC1TAB7 PO ×2 (01:45→01:50)
[2019-07-22 02:15] VITALS: BP 145/79
[2019-07-22] MEDS ORDERED: NORCO 5/325MG TABLET (BULK FOR ED) PO ONE (02:30)
[2019-08-01] MEDS ORDERED: BICA50TA9 (00:06)
[2019-08-10] MEDS ORDERED: PERC5TAB12 PO (08:54)
[2019-08-11] MEDS ORDERED: PERC5TAB12 PO (10:58)
== END 2019-07-22 02:44 | disposition home or self-care (01) ==
LOC: M ED 00:22 → EDBD 00:22 → M ED 02:44
DX: G89.3 Neoplasm related pain (acute) (chronic) (principal); M79.605 Pain in left leg; E11.9 Type 2 diabetes mellitus without complications; I10 Essential (primary) hypertension; C61 Malignant neoplasm of prostate; Z79.899 Other long term (current) drug therapy; Z79.84 Long term (current) use of oral hypoglycemic drugs; Z79.890 Hormone replacement therapy; Z79.82 Long term (current) use of aspirin

== ENCOUNTER 2019-07-31 23:43 | Emergency (ER) | payer MEDICARE ==
[~2019-07-31] VITALS: Ht 175.3 cm; Wt 70.5 kg
[~2019-07-31 23:43] MED LIST changes: +AMLO1TAB24 PO; -AMLO5TAB6 PO; +NORC1TAB7 PO
[2019-08-01] MEDS ORDERED: BICA50TA9 PO (00:06)
[2019-08-01] MEDS ORDERED: PERCOCET 5MG/325MG TAB PO ONE ×2 (01:00→01:15)
[2019-08-01] MEDS ORDERED: PERC5TAB12 PO (02:25)
[2019-08-01] MEDS ORDERED: OXYCODONE/APAP 5MG/325MG(BULK FOR ED) 1 TABLET PO ONE (02:30)
[2019-08-01 03:40] VITALS: BP 147/76
[2019-08-10] MEDS ORDERED: PERC5TAB12 PO (08:54)
[2019-08-11] MEDS ORDERED: PERC5TAB12 PO (10:58)
[2019-08-17] MEDS ORDERED: NORC1TAB7 PO ×2 (15:45)
[2019-08-18] MEDS ORDERED: PERC5TAB12 PO (14:03)
[2019-10-05] MEDS ORDERED: PERC5TAB12 PO (14:22)
[2019-10-25] MEDS ORDERED: PERC5TAB12 PO (13:17)
== END 2019-08-01 03:46 | disposition home or self-care (01) ==
LOC: M ED 23:43
DX: M25.562 Pain in left knee (principal); G89.3 Neoplasm related pain (acute) (chronic); I10 Essential (primary) hypertension; C61 Malignant neoplasm of prostate; E78.5 Hyperlipidemia, unspecified; N40.0 Benign prostatic hyperplasia without lower urinary tract symptoms; Z79.899 Other long term (current) drug therapy; Z79.82 Long term (current) use of aspirin; F17.210 Nicotine dependence, cigarettes, uncomplicated

== ENCOUNTER → 2019-09-13 | Emergency (ER) | payer MEDICARE ==
[~2019-09-13] MED LIST changes: +CALC600T18 PO; +PERC5TAB12 PO; +XGEVINJ SC; +oxyCODONE 5MG TAB ONE
== END | disposition home or self-care (01) ==
LOC: M ED 06:42
DX: G89.3 Neoplasm related pain (acute) (chronic) (principal); C79.51 Secondary malignant neoplasm of bone; C61 Malignant neoplasm of prostate

== ENCOUNTER 2019-10-27 12:08 | Inpatient (IN) | payer MEDICARE ==
[~2019-10-27] VITALS: Ht 172.7 cm; Wt 64.4 kg
[~2019-10-27 12:08] MED LIST changes: -CALC600T18 PO; -XGEVINJ SC; -oxyCODONE 5MG TAB ONE
[2019-10-27] MEDS ORDERED: PERCOCET 5MG/325MG TAB PO ONE (12:30)
[2019-10-27] MEDS: NS 1,000 ML IV SCH ×4 (12:39→22:13)
[2019-10-27 13:13] LABS: HEMATOCRIT 25.4 % (42.0-52.0); MEAN CORPUSCULAR HEMOGLOBIN 28.8 pg (27.0-33.0); MEAN CORPUSCULAR HGB CONC 31.5 g/dl (32.0-36.5); MEAN CORPUSCULAR VOLUME 91.4 fl (80.0-96.0); PLATELET COUNT, AUTOMATED 368 10^3/uL (150-450); RED BLOOD COUNT 2.78 10^6/uL (4.30-6.10); WHITE BLOOD COUNT 4.3 10^3/uL (4.0-10.0)
[2019-10-27 13:38] LABS: ALBUMIN 2.1 GM/DL (3.2-5.2); ALT/SGPT 11 U/L (12-78); BILIRUBIN,DIRECT 0.1 MG/DL (0.0-0.2); BILIRUBIN,TOTAL 0.3 MG/DL (0.2-1.0); BLOOD UREA NITROGEN 15 MG/DL (7-18); CARBON DIOXIDE LEVEL 23 MEQ/L (21-32); CHLORIDE LEVEL 107 MEQ/L (98-107); CK-MB VALUE MASS < 1.0 NG/ML (<3.6); CPK CREATINE PHOSPHOKINASE 152 U/L (39-308); CREATININE FOR GFR 0.71 MG/DL (0.70-1.30); GLOMERULAR FILTRATION RATE > 60.0 (>42); GLUCOSE, FASTING 84 MG/DL (70-100); MB/CK RELATIVE INDEX 0.66 (< OR =4); POTASSIUM SERUM 3.8 MEQ/L (3.5-5.1); SODIUM LEVEL 138 MEQ/L (136-145); TOTAL PROTEIN 5.9 GM/DL (6.4-8.2); TROPONIN I < 0.02 NG/ML (< 0.10)
--- NOTE | 2019-10-27 13:50 | REPVR ---
PROCEDURE INFORMATION: Exam: XR Chest, 1 View Exam date and time: 10/27/2019 1:13 PM Age: 69 years old Clinical indication: Condition or disease; cancer in leg. On chemotherapy; Additional info: Altered mental status TECHNIQUE: Imaging protocol: XR of the chest Views: 1 view. COMPARISON: 1. CT - Chest with contrast 11/18/2018 10:01 AM 2. CR - Chest, 1 view 11/28/2015 5:20:44 AM FINDINGS: Tubes, catheters and devices: ECG leads/contacts overlie and partially obscure the anatomy. Lungs: No pulmonary consolidation or edema. Pleural space: No evident pleural effusion. No evident pneumothorax. Heart/Mediastinum: Heart size is within normal limits. Vasculature: Mildly tortuous thoracic aorta. Aortic atherosclerotic calcification. Bones/joints: Sclerotic lesions consistent with blastic metastases involving thoracic vertebrae and the left medial clavicle appear grossly similar to 11/18/2018. Multiple other previously seen skeletal blastic metastases are not well-visualized on this chest x-ray. IMPRESSION: 1. No radiographic evidence of acute cardiopulmonary disease. 2. Skeletal lesions consistent with blastic metastases are redemonstrated. Electronically signed by: Juan Antonio Villareal On 10/27/2019 13:50:12 PM
[2019-10-27 14:08] LABS: LYMPHOCYTES 29 % (16-44); METAMYELOCYTES 3 % (0-0); MONOCYTES 9 % (0-5); MYELOCYTES 1 % (0-0); NEUTROPHILS 53 % (28-66)
[2019-10-27 14:11] LABS: ANISOCYTOSIS 1+
[2019-10-27 14:18] LABS: PLATELET ESTIMATE NORMAL (NORMAL)
[2019-10-27] MEDS ORDERED: CALC600T18 PO (15:13)
[2019-10-27] MEDS ORDERED: XGEVINJ SC (15:16)
[2019-10-27 18:18] VITALS: BP 158/98
[2019-10-27] MEDS: PERCOCET 5MG/325MG TAB PO PRN (19:08)
--- NOTE | 2019-10-27 20:05 | HPEPDOC ---
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 He states that he could not push himself off, became concerned and called his building guard deputy sheriff. He denies syncope/pre-syncope, seizure, chest pain, n/v/d, lightheadedness or blurred vision. He is actively managed by oncology service (Dr. Downey) at the [facility]. Presently on leupron (every 6 mo), aberaterone with prednisone, Xgeva monthly. Reviewed oncology, patient not interested in pursuing palliative care at this time, as he feels that he has good support around him, his son visits and helps with groceries. PAST MEDICAL HISTORY: metastatic prostate cancer to brain, bone HTN Hypothyroidism DM2 PAST SURGICAL HISTORY: Resection of posterior fossa mass (mestastatic) C1 laminectomy in 10/2015 with pathology showing adenoca c/w prostate ca SOCIAL HISTORY: resides alone in subsidized senior housing Denies smoking Denies etoh use FAMILY HISTORY: Father - age 63 from [place] Mother - age 80 from colon ca ALLERGIES: Please see below. REVIEW OF SYSTEMS: CONSTITUTIONAL: weakness HEENT: denies blurred vision. CARDIOVASCULAR: denies chest pain, shortness of breath, palpitations. RESPIRATORY: denies shortness of breath, wheezing. GASTROINTESTINAL: denies abdominal pain. GENITOURINARY: denies dysuria. MUSCULOSKELETAL: reports 7/10 pain in L thigh, due to metastatic bone disease NEUROLOGICAL: denies focal weakness, seizures. PSYCHIATRIC: no SI/HI HOME MEDICATIONS: Please see below. PHYSICAL EXAMINATION: VITAL SIGNS: please see below General: comfortable, gaunt HEENT: PERRLA, EOMI, exophtalmos Neck: supple, normal ROM, no JVD Resp: lungs CTAB, no wheeze, no rales, no crackles CVS: RRR, normal S1, S2, no murmurs Abdo: soft, no masses, no hepatosplenomegaly, BS+, no rebound tenderness Extremities: no edema, pulses 2+ MSK: no joint deformities, normal ROM Neuro: no focal neuro deficits, moving all 4 extremities Psych: calm, cooperative, AAO x 3 LABORATORY DATA: See below. IMAGING: CXR (10/27/19) FINDINGS: Tubes, catheters and devices: ECG leads/contacts overlie and partially obscure the anatomy. Lungs: No pulmonary consolidation or edema. Pleural space: No evident pleural effusion. No evident pneumothorax. Heart/Mediastinum: Heart size is within normal limits. Vasculature: Mildly tortuous thoracic aorta. Aortic atherosclerotic calcification. Bones/joints: Sclerotic lesions consistent with blastic metastases involving thoracic vertebrae and the left medial clavicle appear grossly similar to 11/18/2018. Multiple other previously seen skeletal blastic metastases are not well-visualized on this chest x-ray. IMPRESSION: 1. No radiographic evidence of acute cardiopulmonary disease. 2. Skeletal lesions consistent with blastic metastases are redemonstrated. MICROBIOLOGY: Please see below. 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 Admitted for deconditioning given advance metastatic prostate ca. . PLAN: 1. Fatigue - deconditioning, in setting of prostate ca - IVF - nutrition eval - PT/OT 2. Prostate ca - mets to brain, bone - last PSA 465 in 07/2019 - oncology care at [facility] - aberaterone with pred, Xgeva, lupron 3. Hypothyroid - continue home med 4. Metastatic bone pain - L hip - resume home pain meds - percocet 5/325mg PO q6h prn DVT ppx: lovenox Dispo: pending PT/OT eval Vital Signs Vital Signs Date Time Temp Pulse Resp B/P (MAP) Pulse Ox O2 Delivery O2 Flow Rate FiO2 10/27/19 19:45 17 10/27/19 18:18 98.3 99 158/98 (118) 100 Room Air Laboratory Data Labs 24H Laboratory Tests 2 10/27/19 12:53: Immature Granulocyte % (Auto) , Neutrophils (%) (Auto) , Nucleated Red Blood Cells % (auto) 0.7H, Neutrophils 53, Band Neutrophils 5, Lymphocytes (Manual) 29, Monocytes (Manual) 9H, Metamyelocytes 3H, Myelocytes 1H, Anisocytosis 1+, Platelet Estimate NORMAL, Anion Gap 8, Glomerular Filtration Rate > 60.0, Calcium Level 7.0L, Total Bilirubin 0.3, Direct Bilirubin 0.1, Aspartate Amino Transf (AST/SGOT) 28, Alanine Aminotransferase (ALT/SGPT) 11L, Alkaline Phosphatase 442H, Ammonia 21, Total Creatine Kinase 152, Creatine Kinase MB < 1. 0, Creatine Kinase MB Relative Index 0.66, Troponin I < 0.02, Total Protein 5.9L, Albumin 2.1L, Albumin/Globulin Ratio 0.6 10/27/19 16:53: Urine Color YELLOW, Urine Appearance CLEAR, Urine pH 6.0, Urine Specific [place] 1.009, Urine Protein NEGATIVE, Urine Glucose (UA) NEGATIVE, Urine Ketones NEGATIVE, Urine Blood NEGATIVE, Urine Nitrite NEGATIVE, Urine Bilirubin NEGATIVE, Urine Urobilinogen 0.2, Urine Leukocyte Esterase NEGATIVE, Urine WBC (Auto) 1, Urine RBC (Auto) 2, Urine Hyaline Casts (Auto) 0, Urine Bacteria (Auto) NEGATIVE, Urine Squamous Epithelial Cells 0, Urine Sperm (Auto) CBC/BMP Laboratory Tests 10/27/19 12:53 Home Medications Scheduled Abiraterone Acetate (Abiraterone Acetate) 250 Mg Tablet, 250 MG PO QID for Metastatic Prostate Cancer Take 250 mg po q.i.d. (may take 1000 mg daily at one time also) Aspirin (Aspirin EC) 325 Mg Tabec, 325 MG PO DAILY Bicalutamide (Bicalutamide) 50 Mg Tablet, 50 MG PO DAILY Calcium Carbonate/Vitamin D3 (Calcium 600-Vit D3 400 Tablet) 1 Each Tablet, 1 TAB PO BID Denosumab Injection (Xgeva) 120 Mg/1.7 Ml Vial, 60 MG SC QMONTH Leuprolide Acetate (Lupron Dep[place]) 45 Mg Syringekit, 45 MG IM ASDIRECTED EVERY 6 MONTHS Levothyroxine Sodium (Synthroid) 125 Mcg Tab, 125 MCG PO DAILY Lisinopril (Lisinopril) 10 Mg Tab, 10 MG PO DAILY Metformin HCl (Metformin HCl) 500 Mg Tablet, 1,000 MG PO BID Prednisone (Prednisone) 5 Mg Tab.ds.pk, 5 MG PO BID for Abiraterone Therapy Take 5 mg po b.i.d. while taking Zytiga Simvastatin (Zocor) 40 Mg Tab, 40 MG PO QPM Tamsulosin HCl (Flomax) 0.4 Mg Cap, 0.4 MG PO QPM Scheduled PRN Oxycodone HCl/Acetaminophen (Percocet 5-325 mg Tablet) 1 Each Tablet, 1-2 TAB PO Q6H PRN for PAIN ISTOP#[id number] Allergies Coded Allergies: No Known Allergies (Unverified , 01/20/19) A-FIB/CHADSVASC A-FIB History Current/History of A-Fib/PAF?: No Current PO Anticoag Therapy: No GABY VASQUEZ MD Oct 27, 2019 20:04
[2019-10-27] MEDS: ENOXAPARIN 40MG/0.4ML SYRINGE (J1650 PER 10MG) SC SCH (20:10)
[2019-10-27] MEDS: SIMVASTATIN 40 MG TAB PO SCH (20:10)
[2019-10-27] MEDS: TAMSULOSIN 0.4 MG CAP PO SCH (20:11)
[2019-10-27] MEDS ORDERED: predniSONE 5 MG TAB PO SCH (21:00)
[2019-10-27 22:00] VITALS: BP 160/100
[2019-10-28] VITALS (8 sets, daily range): BP systolic 122–158; BP diastolic 80–100
[2019-10-28] MEDS: PERCOCET 5MG/325MG TAB PO PRN ×4 (00:10→20:32)
[2019-10-28 06:02] LABS: MEAN CORPUSCULAR HEMOGLOBIN 29.1 pg (27.0-33.0); MEAN CORPUSCULAR VOLUME 90.9 fl (80.0-96.0); PLATELET COUNT, AUTOMATED 327 10^3/uL (150-450); RED BLOOD COUNT 2.75 10^6/uL (4.30-6.10); WHITE BLOOD COUNT 3.6 10^3/uL (4.0-10.0)
[2019-10-28] MEDS: LEVOTHYROXINE 125MCG TABLET (0.125MG) PO SCH (06:06)
[2019-10-28] MEDS: NS 1,000 ML IV SCH (06:06)
[2019-10-28 06:23] LABS: ALBUMIN 1.9 GM/DL (3.2-5.2); ALT/SGPT 10 U/L (12-78); BILIRUBIN,TOTAL 0.4 MG/DL (0.2-1.0); BLOOD UREA NITROGEN 12 MG/DL (7-18); CALCIUM LEVEL 6.8 MG/DL (8.8-10.2); CARBON DIOXIDE LEVEL 21 MEQ/L (21-32); CHLORIDE LEVEL 109 MEQ/L (98-107); CREATININE FOR GFR 0.66 MG/DL (0.70-1.30); GLOMERULAR FILTRATION RATE > 60.0 (>42); GLUCOSE, FASTING 76 MG/DL (70-100); MAGNESIUM LEVEL 1.7 MG/DL (1.8-2.4); PHOSPHORUS LEVEL 2.4 MG/DL (2.5-4.9); POTASSIUM SERUM 3.8 MEQ/L (3.5-5.1); SODIUM LEVEL 137 MEQ/L (136-145); TOTAL PROTEIN 5.3 GM/DL (6.4-8.2)
[2019-10-28 06:31] LABS: FREE T4 1.21 NG/DL (0.76-1.46); THYROID STIMULATING HORMONE 0.408 uIU/ML (0.358-3.740)
[2019-10-28 07:56] LABS: ATYPICAL LYMPH 10 % (0-5); EOSINOPHILS 2 % (0-3); LYMPHOCYTES 26 % (16-44); MONOCYTES 3 % (0-5); NEUTROPHILS 56 % (28-66); PLATELET ESTIMATE NORMAL (NORMAL)
[2019-10-28 08:00] LABS: ANISOCYTOSIS 1+
--- NOTE | 2019-10-28 10:52 | IPNPDOC ---
Date Seen The patient was seen on 10/28/19. Progress Note SUBJECTIVE: patient was seen and examined at bedside. Doing well, no acute events overnight. States that feels a little bit stronger today. Did not sleep well. Denies chest pain, n/v/d, fevers or chills. LLE pain in femur improved. Discussed code status. Patient verbalized - DNR/DNI. MOLST forms signed. OBJECTIVE PHYSICAL EXAMINATION: VITAL SIGNS: Please see below. General: comfortable, gaunt HEENT: PERRLA, EOMI, exophtalmos Neck: supple, normal ROM, no JVD Resp: lungs CTAB, no wheeze, no rales, no crackles CVS: RRR, normal S1, S2, no murmurs Abdo: soft, no masses, no hepatosplenomegaly, BS+, no rebound tenderness Extremities: no edema, pulses 2+ MSK: no joint deformities, normal ROM Neuro: no focal neuro deficits, moving all 4 extremities Psych: calm, cooperative, AAO x 3 LABORATORY DATA, IMAGING STUDIES, MICROBIOLOGY: Please see below. 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 Admitted for deconditioning given advance metastatic prostate ca. . PLAN: 1. Fatigue possible due to cancer related anemia - Hgb 8.0 - transfuse 1 unit pRBC - IVF - nutrition eval - PT/OT 2. Prostate ca - mets to brain, bone - last PSA 465 in 07/2019 - oncology care at [facility] - aberaterone with pred, Xgeva, lupron 3. Hypothyroid - continue home med 4. Metastatic bone pain - L hip - resume home pain meds - percocet 5/325mg PO q6h prn 5. HTN - resumed home meds - lisinopril 10 mg daily 6. Hypothyroidism - TSH/FT4 wnl - resume home med synthroid 125 mcg daily 7. DM2 - last a1c 06/2019 5.9 - ISS, hypoglycemic precs - ISS - accuchecks - takes no meds 8. HLD - takes asa/statin DVT ppx: lovenox Dispo: pending PT/OT eval - required additional PT sessions prior to return home. VS, I&O, [facility] Vital Signs/I&O Vital Signs Date Time Temp Pulse Resp B/P (MAP) Pulse Ox O2 Delivery O2 Flow Rate FiO2 10/28/19 07:09 18 97 Room Air 10/28/19 06:00 98.2 105 151/100 (117) I&O- Last 24 Hours up to 6 AM 10/28/19 06:00 Intake Total 1850 ml Output Total 1075 ml Balance 775 ml Laboratory Data 24H LABS Laboratory Tests 2 10/27/19 12:53: Immature Granulocyte % (Auto) , Neutrophils (%) (Auto) , Nucleated Red Blood Cells % (auto) 0.7H, Neutrophils 53, Band Neutrophils 5, Lymphocytes (Manual) 29, Monocytes (Manual) 9H, Metamyelocytes 3H, Myelocytes 1H, Anisocytosis 1+, Platelet Estimate NORMAL, Anion Gap 8, Glomerular Filtration Rate > 60.0, Calcium Level 7.0L, Total Bilirubin 0.3, Direct Bilirubin 0.1, Aspartate Amino Transf (AST/SGOT) 28, Alanine Aminotransferase (ALT/SGPT) 11L, Alkaline Phosphatase 442H, Ammonia 21, Total Creatine Kinase 152, Creatine Kinase MB < 1. 0, Creatine Kinase MB Relative Index 0.66, Troponin I < 0.02, Total Protein 5.9L, Albumin 2.1L, Albumin/Globulin Ratio 0.6 10/27/19 16:53: Urine Color YELLOW, Urine Appearance CLEAR, Urine pH 6.0, Urine Specific [place] 1.009, Urine Protein NEGATIVE, Urine Glucose (UA) NEGATIVE, Urine Ketones NEGATIVE, Urine Blood NEGATIVE, Urine Nitrite NEGATIVE, Urine Bilirubin NEGATIVE, Urine Urobilinogen 0.2, Urine Leukocyte Esterase NEGATIVE, Urine WBC (Auto) 1, Urine RBC (Auto) 2, Urine Hyaline Casts (Auto) 0, Urine Bacteria (Auto) NEGATIVE, Urine Squamous Epithelial Cells 0, Urine Sperm (Auto) 10/28/19 05:41: Immature Granulocyte % (Auto) , Neutrophils (%) (Auto) , Nucleated Red Blood Cells % (auto) 0.8H, Neutrophils 56, Band Neutrophils 3, Lymphocytes (Manual) 26, Monocytes (Manual) 3, Anisocytosis 1+, Platelet Estimate NORMAL, Anion Gap 7L, Glomerular Filtration Rate > 60.0, Calcium Level 6.8L, Total Bilirubin 0.4, Aspartate Amino Transf (AST/SGOT) 29, Alanine Aminotransferase (ALT/SGPT) 10L, Alkaline Phosphatase 393H, Total Protein 5.3L, Albumin 1.9L, Albumin/Globulin Ratio 0.6, Eosinophils (Manual) 2, Atypical Lymphocytes 10H, Phosphorus Level 2 .4L, Magnesium Level 1.7L, Thyroid Stimulating Hormone (TSH) 0.408, Free Thyroxine 1.21 CBC/BMP Laboratory Tests 10/27/19 12:53 10/28/19 05:41 GABY VASQUEZ MD Oct 28, 2019 10:52
[2019-10-28] MEDS: ASPIRIN ENTERIC 325 MG TAB PO SCH (10:54)
[2019-10-28] MEDS: MORPHINE 2 MG/ML 1ML VIAL (J2270) IV PRN (10:59)
[2019-10-28] MEDS ORDERED: GLUCAGON INJ 1MG VIAL SC PRN (11:00)
[2019-10-28] MEDS ORDERED: DEXTROSE 50% 50 ML SYRINGE IV PRN (11:00)
[2019-10-28] MEDS ORDERED: GLUCOSE 4GM CHEW TABLET PO PRN (11:00)
[2019-10-28] MEDS: lisinopriL 10 MG TAB PO SCH (11:05)
[2019-10-28 11:18] LABS: FOLATE 6.5 NG/ML (>5.4); TOTAL 25(OH) VITAMIN D 31.5 NG/ML (30.0-100.0)
[2019-10-28] MEDS: HumaLOG INSULIN (NovoLOG) PER UNIT SC SCH ×3 (12:00→21:00)
[2019-10-28] MEDS: BICALUTAMIDE 50 MG TAB PO SCH (13:18)
[2019-10-28 17:11] LABS: HEMATOCRIT 27.1 % (42.0-52.0); HEMOGLOBIN 8.8 g/dl (13.5-17.5)
[2019-10-28] MEDS: ENOXAPARIN 40MG/0.4ML SYRINGE (J1650 PER 10MG) SC SCH (20:31)
[2019-10-28] MEDS: TAMSULOSIN 0.4 MG CAP PO SCH (20:31)
[2019-10-28] MEDS: SIMVASTATIN 40 MG TAB PO SCH (20:31)
[2019-10-29] MEDS: PERCOCET 5MG/325MG TAB PO PRN ×4 (02:19→22:06)
[2019-10-29 06:00] VITALS: BP 158/84
[2019-10-29] MEDS: MORPHINE 2 MG/ML 1ML VIAL (J2270) IV PRN ×2 (06:09→19:57)
[2019-10-29] MEDS: LEVOTHYROXINE 125MCG TABLET (0.125MG) PO SCH (06:09)
[2019-10-29 06:45] LABS: HEMATOCRIT 28.6 % (42.0-52.0); HEMOGLOBIN 9.2 g/dl (13.5-17.5); MEAN CORPUSCULAR HEMOGLOBIN 29.3 pg (27.0-33.0); MEAN CORPUSCULAR HGB CONC 32.2 g/dl (32.0-36.5); MEAN CORPUSCULAR VOLUME 91.1 fl (80.0-96.0); PLATELET COUNT, AUTOMATED 320 10^3/uL (150-450); RED BLOOD COUNT 3.14 10^6/uL (4.30-6.10)
[2019-10-29 07:13] LABS: ALBUMIN 1.9 GM/DL (3.2-5.2); ALT/SGPT 9 U/L (12-78); BILIRUBIN,TOTAL 0.5 MG/DL (0.2-1.0); BLOOD UREA NITROGEN 12 MG/DL (7-18); CALCIUM LEVEL 6.4 MG/DL (8.8-10.2); CARBON DIOXIDE LEVEL 22 MEQ/L (21-32); CHLORIDE LEVEL 106 MEQ/L (98-107); GLOMERULAR FILTRATION RATE > 60.0 (>42); GLUCOSE, FASTING 75 MG/DL (70-100); MAGNESIUM LEVEL 1.8 MG/DL (1.8-2.4); PHOSPHORUS LEVEL 2.8 MG/DL (2.5-4.9); SODIUM LEVEL 136 MEQ/L (136-145); TOTAL PROTEIN 5.2 GM/DL (6.4-8.2)
[2019-10-29 07:17] LABS: ANISOCYTOSIS 1+; EOSINOPHILS 3 % (0-3); LYMPHOCYTES 29 % (16-44); MONOCYTES 5 % (0-5); MYELOCYTES 3 % (0-0); NEUTROPHILS 58 % (28-66); PLATELET ESTIMATE NORMAL (NORMAL); POIKILOCYTOSIS 1+; POLYCHROMASIA 1+
[2019-10-29] MEDS: HumaLOG INSULIN (NovoLOG) PER UNIT SC SCH ×4 (07:30→19:56)
--- NOTE | 2019-10-29 09:18 | REPVR ---
PROCEDURE INFORMATION: Exam: US Abdomen, Limited; Right Upper Quadrant Exam date and time: 10/29/2019 8:43 AM Age: 69 years old Clinical indication: Abnormal findings; Abnormal lab test; Elevated ALP TECHNIQUE: Imaging protocol: US abdomen. Real time ultrasound with image documentation. Limited exam focused on the right upper quadrant. COMPARISON: CT ABD PELVIS W/O CONTRAST 12/20/2018 6:46 PM FINDINGS: Limitations: The examination is limited by body habitus and bowel gas. Liver: Right hepatic 0.9 cm circumscribed anechoic simple-appearing cyst. No solid hepatic mass is identified. Hepatic echotexture appears within normal limits. Gallbladder: No pericholecystic fluid. No abnormal gallbladder wall thickening. No gallstones. Common bile duct: Common bile duct diameter = 0.46 cm. No intrahepatic or extrahepatic bile duct dilation is imaged. Pancreas: The pancreas is obscured by bowel gas. Right kidney: Right kidney length = 11.7 cm. No right hydronephrosis. Nonspecific 5 mm echogenic focus at the right kidney corticomedullary junction may represent a renal calculus. No renal mass is imaged. Intraperitoneal space: No free intraperitoneal fluid is imaged. IMPRESSION: Possible right nephrolithiasis. Electronically signed by: Juan Antonio Villareal On 10/29/2019 09:18:38 AM
[2019-10-29] MEDS: ASPIRIN ENTERIC 325 MG TAB PO SCH (09:56)
[2019-10-29] MEDS: BICALUTAMIDE 50 MG TAB PO SCH (09:57)
[2019-10-29] MEDS: lisinopriL 10 MG TAB PO SCH (10:00)
--- NOTE | 2019-10-29 13:35 | IPNPDOC ---
Date Seen The patient was seen on 10/29/19. Progress Note SUBJECTIVE: patient was seen and examined at bedside. Doing well, no acute events overnight. States that feels a little bit stronger today. Did not sleep well. Denies chest pain, n/v/d, fevers or chills. LLE pain in femur improved. Discussed code status. Patient verbalized - DNR/DNI. MOLST forms signed. OBJECTIVE PHYSICAL EXAMINATION: VITAL SIGNS: Please see below. General: comfortable, gaunt HEENT: PERRLA, EOMI, exophtalmos Neck: supple, normal ROM, no JVD Resp: lungs CTAB, no wheeze, no rales, no crackles CVS: RRR, normal S1, S2, no murmurs Abdo: soft, no masses, no hepatosplenomegaly, BS+, no rebound tenderness Extremities: no edema, pulses 2+ MSK: no joint deformities, normal ROM Neuro: no focal neuro deficits, moving all 4 extremities Psych: calm, cooperative, AAO x 3 LABORATORY DATA, IMAGING STUDIES, MICROBIOLOGY: Please see below. 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 Admitted for deconditioning given advance metastatic prostate ca. . PLAN: 1. Fatigue possible due to cancer related anemia - Hgb 8.0 - transfuse 1 unit pRBC - IVF - nutrition eval - PT/OT 2. Prostate ca - mets to brain, bone - last PSA 465 in 07/2019 - oncology care at [facility] - aberaterone with pred, Xgeva, lupron - will discuss hospice consult with patient, end-stage disease, deconditioning, short life-expectancy 3. Hypothyroid - continue home med 4. Metastatic bone pain - L hip/L knee - repeat L femur, L knee, r/o acute fracture - resume home pain meds - percocet 5/325mg PO q6h prn 5. HTN - resumed home meds - lisinopril 10 mg daily 6. Hypothyroidism - TSH/FT4 wnl - resume home med synthroid 125 mcg daily 7. DM2 - last a1c 06/2019 5.9 - ISS, hypoglycemic precs - ISS - accuchecks - takes no meds 8. HLD - takes asa/statin 9. ALP elevation - liver US performed, no acute findings - check GGT - suspect bone metastases as source for ALP elevation 10. Anxiety/Depression - klonopin 0.5 mg PO prn - public relations supervisor/spiritual consult DVT ppx: lovenox Dispo: pending PT/OT eval - required additional PT sessions prior to return home. VS, I&O, 24H, Fishbone Vital Signs/I&O Vital Signs Date Time Temp Pulse Resp B/P (MAP) Pulse Ox O2 Delivery O2 Flow Rate FiO2 10/29/19 10:48 18 10/29/19 10:00 160/96 10/29/19 06:19 95 Room Air 10/29/19 06:00 98.2 100 I&O- Last 24 Hours up to 6 AM 10/29/19 05:59 Intake Total 1980 ml Output Total 1125 ml Balance 855 ml Laboratory Data 24H LABS Laboratory Tests 2 10/28/19 16:55: Bedside Glucose (Misc Panel) 81L 10/28/19 20:29: Bedside Glucose (Misc Panel) 80L 10/29/19 06:30: Immature Granulocyte % (Auto) , Neutrophils (%) (Auto) , Nucleated Red Blood Cells % (auto) 0.5H, Neutrophils 58, Band Neutrophils 2, Lymphocytes (Manual) 29, Monocytes (Manual) 5, Eosinophils (Manual) 3, Myelocytes 3H, Polychromasia 1+, Poikilocytosis 1+, Anisocytosis 1+, Platelet Estimate NORMAL, Anion Gap 8, Glomerular Filtration Rate > 60.0, Calcium Level 6.4L, Phosphorus Level 2.8, Magnesium Level 1.8, Total Bilirubin 0.5, Aspartate Amino Transf (AST/SGOT) 71H, Alanine Aminotransferase (ALT/SGPT) 9L, Alkaline Phosphatase 416H, Total Protein 5.2L, Albumin 1.9L, Albumin/Globulin Ratio 0.6 10/29/19 12:05: Bedside Glucose (Misc Panel) 77L CBC/BMP Laboratory Tests 10/28/19 16:47 10/29/19 06:30 GABY VASQUEZ MD Oct 29, 2019 13:35
[2019-10-29 14:00] VITALS: BP 120/76
[2019-10-29] MEDS: ENOXAPARIN 40MG/0.4ML SYRINGE (J1650 PER 10MG) SC SCH (19:56)
[2019-10-29] MEDS: SIMVASTATIN 40 MG TAB PO SCH (19:56)
[2019-10-29] MEDS: TAMSULOSIN 0.4 MG CAP PO SCH (19:56)
[2019-10-29 22:00] VITALS: BP 162/80
[2019-10-30] MEDS: MORPHINE 2 MG/ML 1ML VIAL (J2270) IV PRN ×3 (02:48→18:08)
[2019-10-30] MEDS: PERCOCET 5MG/325MG TAB PO PRN ×3 (05:17→21:20)
[2019-10-30] MEDS: LEVOTHYROXINE 125MCG TABLET (0.125MG) PO SCH (05:17)
[2019-10-30 06:00] VITALS: BP 140/68
[2019-10-30] MEDS: HumaLOG INSULIN (NovoLOG) PER UNIT SC SCH ×4 (07:26→21:00)
[2019-10-30 08:30] LABS: BASO % 0.5 % (0.0-1.0); EOS % 1.1 % (0.0-3.0); HEMATOCRIT 28.9 % (42.0-52.0); HEMOGLOBIN 9.3 g/dl (13.5-17.5); LYMPH # 0.6 10^3/uL (1.5-5.0); MEAN CORPUSCULAR HEMOGLOBIN 29.5 pg (27.0-33.0); MEAN CORPUSCULAR HGB CONC 32.2 g/dl (32.0-36.5); MEAN CORPUSCULAR VOLUME 91.7 fl (80.0-96.0); MONO # 0.3 10^3/uL (0.0-0.8); MONO % 7.2 % (0.0-5.0); NEUTROPHILS # 2.6 10^3/uL (1.5-8.5); NEUTROPHILS % 69.4 % (36.0-66.0); PLATELET COUNT, AUTOMATED 316 10^3/uL (150-450); RED BLOOD COUNT 3.15 10^6/uL (4.30-6.10); WHITE BLOOD COUNT 3.8 10^3/uL (4.0-10.0)
[2019-10-30 08:41] LABS: ALBUMIN 1.9 GM/DL (3.2-5.2); ALT/SGPT 8 U/L (12-78); BILIRUBIN,TOTAL 0.6 MG/DL (0.2-1.0); BLOOD UREA NITROGEN 13 MG/DL (7-18); CALCIUM LEVEL 6.3 MG/DL (8.8-10.2); CARBON DIOXIDE LEVEL 21 MEQ/L (21-32); CHLORIDE LEVEL 104 MEQ/L (98-107); CREATININE FOR GFR 0.71 MG/DL (0.70-1.30); GLOMERULAR FILTRATION RATE > 60.0 (>42); GLUCOSE, FASTING 71 MG/DL (70-100); MAGNESIUM LEVEL 1.8 MG/DL (1.8-2.4); PHOSPHORUS LEVEL 2.6 MG/DL (2.5-4.9); POTASSIUM SERUM 3.8 MEQ/L (3.5-5.1); SODIUM LEVEL 135 MEQ/L (136-145); TOTAL PROTEIN 5.2 GM/DL (6.4-8.2)
[2019-10-30] MEDS: lisinopriL 10 MG TAB PO SCH (08:44)
[2019-10-30] MEDS: BICALUTAMIDE 50 MG TAB PO SCH (08:45)
[2019-10-30] MEDS: ASPIRIN ENTERIC 325 MG TAB PO SCH (08:45)
--- NOTE | 2019-10-30 08:47 | IPNPDOC ---
Date Seen The patient was seen on 10/30/19. Progress Note SUBJECTIVE: patient was seen and examined at bedside. Doing well, no acute events overnight. States that feels a little bit stronger today. Did not sleep well. Denies chest pain, n/v/d, fevers or chills. OBJECTIVE PHYSICAL EXAMINATION: VITAL SIGNS: Please see below. General: comfortable, gaunt HEENT: PERRLA, EOMI, exophtalmos Neck: supple, normal ROM, no JVD Resp: lungs CTAB, no wheeze, no rales, no crackles CVS: RRR, normal S1, S2, no murmurs Abdo: soft, no masses, no hepatosplenomegaly, BS+, no rebound tenderness Extremities: no edema, pulses 2+ MSK: no joint deformities, normal ROM Neuro: no focal neuro deficits, moving all 4 extremities Psych: calm, cooperative, AAO x 3 LABORATORY DATA, IMAGING STUDIES, MICROBIOLOGY: Please see below. DVT prophylaxis ordered?: Y, lovenox ASSESSMENT:1 yo M with a hx of metastatic prostate adenocarcinoma (mets to brain, bone,last PSA 07/2019 485), HTN, hypothyroidism, DM2, presented to [facility] ED with generalized weakness, after he was unable to lift himself off his couch today. Admitted for deconditioning given advance metastatic prostate ca. . PLAN: 1. Fatigue possible due to cancer related anemia - transfuse 1 unit pRBC, hgb 9.3, stable - nutrition eval - PT/OT 2. Prostate ca - mets to brain, bone - last PSA 465 in 07/2019 - oncology care at [facility] - aberaterone with pred, Xgeva, lupron - hospice consult placed, patient agreeable 3. Hypothyroid - continue home med 4. Metastatic bone pain - L hip/L knee - repeat L femur, L knee, r/o acute fracture - resume home pain meds - percocet 5/325mg PO q6h prn 5. HTN - resumed home meds - lisinopril 10 mg daily 6. Hypothyroidism - TSH/FT4 wnl - resume home med synthroid 125 mcg daily 7. DM2 - last a1c 06/2019 5.9 - ISS, hypoglycemic precs - ISS - accuchecks - takes no meds 8. HLD - takes asa/statin 9. ALP elevation - liver US performed, no acute findings - check GGT - normal - suspect bone metastases as source for ALP elevation 10. Anxiety/Depression - klonopin 0.5 mg PO prn - methods and procedures analyst/spiritual consult DVT ppx: lovenox Dispo: pending PT/OT eval ongoing. Hospice eval placed. VS, I&O, 24H, Fishbone VS, I&O, 24H, Fishbone Vital Signs/I&O Vital Signs Date Time Temp Pulse Resp B/P (MAP) Pulse Ox O2 Delivery O2 Flow Rate FiO2 10/30/19 06:00 98.0 84 18 140/68 (92) 100 Room Air I&O- Last 24 Hours up to 6 AM 10/30/19 06:00 Intake Total 600 ml Output Total 700 ml Balance -100 ml Laboratory Data 24H LABS Laboratory Tests 2 10/29/19 12:05: Bedside Glucose (Misc Panel) 77L 10/29/19 16:41: Bedside Glucose (Misc Panel) 84 10/29/19 19:54: Bedside Glucose (Misc Panel) 79L 10/30/19 06:43: Immature Granulocyte % (Auto) 4.8H, Neutrophils (%) (Auto) 69.4H, Lymphocytes (%) (Auto) 17.0L, Monocytes (%) (Auto) 7.2H, Eosinophils (%) (Auto) 1.1, Bas ophils (%) (Auto) 0.5, Neutrophils # (Auto) 2.6, Lymphocytes # (Auto) 0.6L, Monocytes # (Auto) 0.3, Eosinophils # (Auto) 0.0, Basophils # (Auto) 0.0, Nucleated Red Blood Cells % (auto) 0.5H, Anion Gap 10, Glomerular Filtration Rate > 60.0, Calcium Level 6.3L, Phosphorus Level 2.6, Magnesium Level 1.8, Total Bilirubin 0.6, Aspartate Amino Transf (AST/SGOT) 72H, Alanine Aminotransferase (ALT/SGPT) 8L, Alkaline Phosphatase 434H, Total Protein 5.2L, Albumin 1.9L, Albumin/Globulin Ratio 0.6 CBC/BMP Laboratory Tests 10/30/19 06:43 GABY VASQUEZ MD Oct 30, 2019 08:47
--- NOTE | 2019-10-30 11:17 | ECGEPIP ---
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
[2019-10-30 14:00] VITALS: BP 110/74
[2019-10-30] MEDS: ENOXAPARIN 40MG/0.4ML SYRINGE (J1650 PER 10MG) SC SCH (21:19)
[2019-10-30] MEDS: TAMSULOSIN 0.4 MG CAP PO SCH (21:19)
[2019-10-30] MEDS: SIMVASTATIN 40 MG TAB PO SCH (21:19)
[2019-10-30 22:00] VITALS: BP 124/82
[2019-10-31] MEDS: PERCOCET 5MG/325MG TAB PO PRN ×4 (03:37→23:28)
[2019-10-31 06:00] VITALS: BP 134/95
[2019-10-31] MEDS: LEVOTHYROXINE 125MCG TABLET (0.125MG) PO SCH (06:03)
[2019-10-31] MEDS: HumaLOG INSULIN (NovoLOG) PER UNIT SC SCH ×4 (07:30→20:01)
--- NOTE | 2019-10-31 07:45 | IPNPDOC ---
Date Seen The patient was seen on 10/31/19. Progress Note SUBJECTIVE: patient was seen and examined at bedside. Doing well, no acute events overnight. Denies chest pain, n/v/d, fevers or chills. OBJECTIVE PHYSICAL EXAMINATION: VITAL SIGNS: Please see below. General: comfortable, gaunt HEENT: PERRLA, EOMI, exophtalmos Neck: supple, normal ROM, no JVD Resp: lungs CTAB, no wheeze, no rales, no crackles CVS: RRR, normal S1, S2, no murmurs Abdo: soft, no masses, no hepatosplenomegaly, BS+, no rebound tenderness Extremities: no edema, pulses 2+ MSK: no joint deformities, normal ROM Neuro: no focal neuro deficits, moving all 4 extremities Psych: calm, cooperative, AAO x 3 LABORATORY DATA, IMAGING STUDIES, MICROBIOLOGY: Please see below. DVT prophylaxis ordered?: Y, lovenox ASSESSMENT:1 yo M with a hx of metastatic prostate adenocarcinoma (mets to brain, bone,last PSA 07/2019 485), HTN, hypothyroidism, DM2, presented to [facility] ED with generalized weakness, after he was unable to lift himself off his couch today. Admitted for deconditioning given advance metastatic prostate ca. . PLAN: 1. Fatigue possible due to cancer related anemia - transfuse 1 unit pRBC, hgb 9.3, stable - nutrition eval - PT/OT 2. Prostate ca - mets to brain, bone - last PSA 465 in 07/2019 - oncology care at [facility] - aberaterone with pred, Xgeva, lupron - hospice consult placed, patient agreeable 3. Hypothyroid - continue home med 4. Metastatic bone pain - L hip/L knee - repeat L femur, L knee, r/o acute fracture - resume home pain meds - percocet 5/325mg PO q6h prn 5. HTN - resumed home meds - lisinopril 10 mg daily 6. Hypothyroidism - TSH/FT4 wnl - resume home med synthroid 125 mcg daily 7. DM2 - last a1c 06/2019 5.9 - ISS, hypoglycemic precs - ISS - accuchecks - takes no meds 8. HLD - takes asa/statin 9. ALP elevation - liver US performed, no acute findings - check GGT - normal - suspect bone metastases as source for ALP elevation 10. Anxiety/Depression - klonopin 0.5 mg PO prn - coal chemist/spiritual consult 11. Hypocalcemia - Ca 5.9, corrected 4.9 - asymptomatic - check EKG for QTc interval - replace with calcium glucogate 2 g IV 12. Hypokalemia - replace DVT ppx: lovenox Dispo: pending PT/OT eval ongoing. Hospice eval placed. VS, I&O, 24H, Fishbone Vital Signs/I&O Vital Signs Date Time Temp Pulse Resp B/P (MAP) Pulse Ox O2 Delivery O2 Flow Rate FiO2 10/31/19 06:00 98.4 107 18 134/95 (108) 99 Room Air I&O- Last 24 Hours up to 6 AM 10/31/19 06:00 Intake Total 440 ml Output Total 1000 ml Balance -560 ml Laboratory Data 24H LABS Laboratory Tests 2 10/30/19 12:34: Bedside Glucose (Misc Panel) 74L 10/30/19 17:02: Bedside Glucose (Misc Panel) 70L 10/30/19 19:46: Bedside Glucose (Misc Panel) 72L 10/31/19 07:22: CBC/BMP GABY VASQUEZ MD Oct 31, 2019 07:45
[2019-10-31 07:52] LABS: BASO % 0.3 % (0.0-1.0); EOS % 0.8 % (0.0-3.0); HEMATOCRIT 28.5 % (42.0-52.0); LYMPH # 0.7 10^3/uL (1.5-5.0); LYMPH % 17.9 % (24.0-44.0); MEAN CORPUSCULAR HGB CONC 31.6 g/dl (32.0-36.5); MEAN CORPUSCULAR VOLUME 91.9 fl (80.0-96.0); MONO # 0.3 10^3/uL (0.0-0.8); NEUTROPHILS # 2.6 10^3/uL (1.5-8.5); NEUTROPHILS % 69.3 % (36.0-66.0); PLATELET COUNT, AUTOMATED 284 10^3/uL (150-450); WHITE BLOOD COUNT 3.8 10^3/uL (4.0-10.0)
[2019-10-31 08:27] LABS: ALBUMIN 1.9 GM/DL (3.2-5.2); ALT/SGPT 9 U/L (12-78); BILIRUBIN,TOTAL 0.7 MG/DL (0.2-1.0); BLOOD UREA NITROGEN 13 MG/DL (7-18); CALCIUM LEVEL 5.9 MG/DL (8.8-10.2); CARBON DIOXIDE LEVEL 19 MEQ/L (21-32); CHLORIDE LEVEL 103 MEQ/L (98-107); CREATININE FOR GFR 0.69 MG/DL (0.70-1.30); GLOMERULAR FILTRATION RATE > 60.0 (>42); GLUCOSE, FASTING 55 MG/DL (70-100); MAGNESIUM LEVEL 1.8 MG/DL (1.8-2.4); PHOSPHORUS LEVEL 2.1 MG/DL (2.5-4.9); POTASSIUM SERUM 3.2 MEQ/L (3.5-5.1); SODIUM LEVEL 132 MEQ/L (136-145); TOTAL PROTEIN 5.2 GM/DL (6.4-8.2)
[2019-10-31] MEDS: ASPIRIN ENTERIC 325 MG TAB PO SCH (09:28)
[2019-10-31] MEDS: BICALUTAMIDE 50 MG TAB PO SCH (09:28)
[2019-10-31] MEDS: CALCIUM GLUCONATE 1,000 MG in D5W MINI-BAG PLUS 100 ML IV SCH (09:28)
[2019-10-31 09:33] VITALS: BP 122/74
[2019-10-31] MEDS: lisinopriL 10 MG TAB PO SCH (09:33)
[2019-10-31] MEDS ORDERED: POTASSIUM CHLORIDE 10 MEQ SR TABLET PO ONE (10:00)
[2019-10-31] MEDS: MORPHINE 2 MG/ML 1ML VIAL (J2270) IV PRN (13:35)
[2019-10-31 14:00] VITALS: BP 110/70
[2019-10-31] MEDS: K-PHOS NEUTRAL 250MG TABLET (SOD.PHOSPHATE/POT.PHOSPHATE) PO SCH ×2 (16:16→21:07)
[2019-10-31 16:36] LABS: ALBUMIN 1.8 GM/DL (3.2-5.2); ALT/SGPT 7 U/L (12-78); BILIRUBIN,TOTAL 0.4 MG/DL (0.2-1.0); BLOOD UREA NITROGEN 13 MG/DL (7-18); CALCIUM LEVEL 6.3 MG/DL (8.8-10.2); CARBON DIOXIDE LEVEL 21 MEQ/L (21-32); CHLORIDE LEVEL 104 MEQ/L (98-107); CREATININE FOR GFR 0.74 MG/DL (0.70-1.30); GLOMERULAR FILTRATION RATE > 60.0 (>42); GLUCOSE, FASTING 60 MG/DL (70-100); POTASSIUM SERUM 3.7 MEQ/L (3.5-5.1); SODIUM LEVEL 135 MEQ/L (136-145); TOTAL PROTEIN 5.1 GM/DL (6.4-8.2)
[2019-10-31] MEDS ORDERED: CALCIUM GLUCONATE 1,000 MG in D5W MINI-BAG PLUS 100 ML IV ONE (18:15)
[2019-10-31] MEDS: TAMSULOSIN 0.4 MG CAP PO SCH (21:07)
[2019-10-31] MEDS: SIMVASTATIN 40 MG TAB PO SCH (21:07)
[2019-10-31] MEDS: ENOXAPARIN 40MG/0.4ML SYRINGE (J1650 PER 10MG) SC SCH (21:07)
[2019-10-31 22:00] VITALS: BP 135/94
[2019-11-01] MEDS: MORPHINE 2 MG/ML 1ML VIAL (J2270) IV PRN (03:10)
[2019-11-01] MEDS: LEVOTHYROXINE 125MCG TABLET (0.125MG) PO SCH (05:40)
[2019-11-01 06:00] VITALS: BP 141/93
[2019-11-01 06:44] LABS: BASO % 0.4 % (0.0-1.0); EOS % 1.5 % (0.0-3.0); HEMOGLOBIN 8.6 g/dl (13.5-17.5); LYMPH # 0.6 10^3/uL (1.5-5.0); LYMPH % 22.5 % (24.0-44.0); MEAN CORPUSCULAR HGB CONC 31.9 g/dl (32.0-36.5); MEAN CORPUSCULAR VOLUME 90.9 fl (80.0-96.0); MONO # 0.2 10^3/uL (0.0-0.8); MONO % 8.4 % (0.0-5.0); NEUTROPHILS # 1.7 10^3/uL (1.5-8.5); NEUTROPHILS % 63.2 % (36.0-66.0); PLATELET COUNT, AUTOMATED 274 10^3/uL (150-450); RED BLOOD COUNT 2.97 10^6/uL (4.30-6.10); WHITE BLOOD COUNT 2.8 10^3/uL (4.0-10.0)
[2019-11-01 07:14] LABS: ALBUMIN 1.8 GM/DL (3.2-5.2); ALT/SGPT 8 U/L (12-78); BILIRUBIN,TOTAL 0.4 MG/DL (0.2-1.0); BLOOD UREA NITROGEN 10 MG/DL (7-18); CALCIUM LEVEL 6.1 MG/DL (8.8-10.2); CARBON DIOXIDE LEVEL 22 MEQ/L (21-32); CHLORIDE LEVEL 103 MEQ/L (98-107); CREATININE FOR GFR 0.67 MG/DL (0.70-1.30); GLOMERULAR FILTRATION RATE > 60.0 (>42); GLUCOSE, FASTING 74 MG/DL (70-100); MAGNESIUM LEVEL 1.8 MG/DL (1.8-2.4); POTASSIUM SERUM 3.5 MEQ/L (3.5-5.1); SODIUM LEVEL 135 MEQ/L (136-145)
[2019-11-01] MEDS: HumaLOG INSULIN (NovoLOG) PER UNIT SC SCH (07:30)
[2019-11-01] MEDS: PERCOCET 5MG/325MG TAB PO PRN (07:48)
[2019-11-01] MEDS: ASPIRIN ENTERIC 325 MG TAB PO SCH (08:55)
[2019-11-01] MEDS: clonazePAM 0.5 MG TAB PO PRN ×2 (08:55→20:43)
[2019-11-01] MEDS: K-PHOS NEUTRAL 250MG TABLET (SOD.PHOSPHATE/POT.PHOSPHATE) PO SCH (08:55)
[2019-11-01] MEDS: BICALUTAMIDE 50 MG TAB PO SCH (08:56)
[2019-11-01 11:18] LABS: PTH INTACT 402.2 PG/ML (18.5-88.0)
--- NOTE | 2019-11-01 11:55 | IPNPDOC ---
Date Seen The patient was seen on 11/01/19. Progress Note SUBJECTIVE: patient was seen and examined at bedside. Doing well, no acute events overnight. Denies chest pain, n/v/d, fevers or chills. Had further discussion regarding goals of care. Mr. Abebe understands poor prognosis due to metastatic prostate ca. We discussed previously hospice involvement to which he is agreeable, and he would further like to proceed with comfort measure only treatment. His main concerns are pain control and nausea. He does not wish to proceed with life-prolonging measures. MOLST form has been completed, signed and witness to reflect new SUPERVISOR BAKING status. Hospice consult is ordered. With Mr. Abebe's permission I spoke to his son Ravindra, and updated him of the SUPERVISOR BAKING sta tus. There were no further questions from family. OBJECTIVE PHYSICAL EXAMINATION: VITAL SIGNS: Please see below. General: comfortable, gaunt HEENT: PERRLA, EOMI, exophtalmos Neck: supple, normal ROM, no JVD Resp: lungs CTAB, no wheeze, no rales, no crackles CVS: RRR, normal S1, S2, no murmurs Abdo: soft, no masses, no hepatosplenomegaly, BS+, no rebound tenderness Extremities: no edema, pulses 2+ MSK: no joint deformities, normal ROM Neuro: no focal neuro deficits, moving all 4 extremities Psych: calm, cooperative, AAO x 3 LABORATORY DATA, IMAGING STUDIES, MICROBIOLOGY: Please see below. DVT prophylaxis ordered?: Y, lovenox ASSESSMENT:1 yo M with a hx of metastatic prostate adenocarcinoma (mets to brain, bone,last PSA 07/2019 485), HTN, hypothyroidism, DM2, presented to [facility] ED with generalized weakness, after he was unable to lift himself off his couch today. Admitted for deconditioning given advance metastatic prostate ca. SUPERVISOR BAKING status. Hospice consult placed. . PLAN: Metastatic prostate cancer - mets to brain, bone - last PSA 465 in 07/2019 - oncology care at [facility] - aberaterone with pred, Xgeva, lupron - hospice consult placed, patient agreeable - SUPERVISOR BAKING status Metastatic bone pain - L hip/L knee - repeat L femur, L knee, r/o acute fracture - resume home pain meds - percocet 5/325mg PO q4h prn (1-2 tab) - morphine 2 mg IV q4h prn - MSIR 30 mg q12h PO scheduled Anxiety/Depression - klonopin 0.5 mg PO prn - ativan 1 mg IV q4h prn for anxiety - manager unix/spiritual consult Nausea - zofran prn Fatigue possible due to cancer related anemia HTN Hypothyroidism DM2 HLD ALP elevation Hypocalcemia Hypokalemia Dispo: SUPERVISOR BAKING. Hospice eval placed VS, I&O, 24H, Fishbone Vital Signs/I&O Vital Signs Date Time Temp Pulse Resp B/P (MAP) Pulse Ox O2 Delivery O2 Flow Rate FiO2 11/01/19 08:18 18 Room Air 11/01/19 06:00 98.1 101 141/93 (109) 100 I&O- Last 24 Hours up to 6 AM 11/01/19 06:00 Intake Total 1070 ml Output Total 975 ml Balance 95 ml Laboratory Data 24H LABS Laboratory Tests 2 10/31/19 12:00: Bedside Glucose (Misc Panel) 109 10/31/19 15:49: Anion Gap 10, Glomerular Filtration Rate > 60.0, Calcium Level 6.3L, Total Bilirubin 0.4, Aspartate Amino Transf (AST/SGOT) 63H, Alanine Aminotransferase (ALT/SGPT) 7L, Alkaline Phosphatase 389H, Total Protein 5.1L, Albumin 1.8L, Albumin/Globulin Ratio 0.5 10/31/19 16:45: Bedside Glucose (Misc Panel) 72L 10/31/19 19:45: Bedside Glucose (Misc Panel) 122H 11/01/19 06:21: Immature Granulocyte % (Auto) 4.0H, Neutrophils (%) (Auto) 63.2, Lymphocytes (%) (Auto) 22.5L, Monocytes (%) (Auto) 8.4H, Eosinophils (%) (Auto) 1.5, Basophils (%) (Auto) 0.4, Neutrophils # (Auto) 1.7, Lymphocytes # (Auto) 0.6L, Monocytes # (Auto) 0.2, Eosinophils # (Auto) 0.0, Basophils # (Auto) 0.0, Nucleated Red Blood Cells % (auto) 0.0, Anion Gap 10, Glomerular Filtration Rate > 60.0, Calcium Level 6.1L, Phosphorus Level 2.0L, Magnesium Level 1.8, Total Bilirubin 0.4, Aspartate Amino Transf (AST/SGOT) 59H, Alanine Aminotransferase (ALT/SGPT) 8L, Alkaline Phosphatase 377H, Total Protein 5.0L, Albumin 1.8L, Albumin/Globulin Ratio 0.6, Parathyroid Hormone (Intact) 402.2H 11/01/19 08:26: Whole Blood Ionized Calcium 3.7L CBC/BMP Laboratory Tests 10/31/19 15:49 11/01/19 06:21 GABY VASQUEZ MD Nov 01, 2019 11:55
[2019-11-01] MEDS ORDERED: LORazepam 2 MG/ML VIAL IM PRN (12:00)
[2019-11-01] MEDS ORDERED: FLUBLOK(EGG FREE)(QUAD)INFLUENZA VACC 0.5ML SYRINGE 18YRS & OLDER IM ONE (12:00)
[2019-11-01] MEDS ORDERED: ACETAMINOPHEN 650 MG SUPP PR PRN (12:00)
[2019-11-01] MEDS ORDERED: PERCOCET 5MG/325MG TAB PO PRN (12:15)
[2019-11-01] MEDS: MORPHINE 30 MG SA TAB PO SCH ×2 (12:46→20:44)
--- NOTE | 2019-11-02 06:11 | ECGEPIP ---
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
[2019-11-02] MEDS: MORPHINE 30 MG SA TAB PO SCH ×2 (10:28→20:55)
[2019-11-02] MEDS: clonazePAM 0.5 MG TAB PO PRN (10:28)
[2019-11-02] MEDS: LORazepam 1 MG TAB PO PRN (23:07)
[2019-11-03 00:30] VITALS: BP_SYST 127; BP_SYST 132; BP_DIAS 86; BP_DIAS 88
--- NOTE | 2019-11-03 00:45 | IPNPDOC ---
Text Note Date of Service The patient was seen on 11/03/19. NOTE Early this morning had a fall which he attributed to slipping on the leg of the rolling table. Prior to the fall he denied having any chest pain, dizziness or dyspnea. He denied hitting his head. After the fall he was A&ox and didnt have any neuro deficits. We will order neurochecks Q12 and orthostats once. VS,Fishbone, I+O VS, Fishbone, I+O Vital Signs Date Time Temp Pulse Resp B/P (MAP) Pulse Ox O2 Delivery O2 Flow Rate FiO2 11/02/19 20:55 18 11/01/19 20:44 Room Air 11/01/19 06:00 98.1 101 141/93 (109) 100 I&O- Last 24 Hours up to 6 AM 11/03/19 06:00 Intake Total 420 ml Output Total 325 ml Balance 95 ml SHAHANA JACQUES MD Nov 03, 2019 00:45
[2019-11-03] MEDS: MORPHINE 30 MG SA TAB PO SCH ×2 (08:57→21:11)
[2019-11-03] MEDS: MORPHINE 2 MG/ML 1ML VIAL (J2270) IV PRN ×2 (12:22→17:58)
[2019-11-04] MEDS: MORPHINE 30 MG SA TAB PO SCH ×2 (10:02→20:07)
[2019-11-04] MEDS: MORPHINE 2 MG/ML 1ML VIAL (J2270) IV PRN ×2 (14:54→18:58)
[2019-11-05] MEDS: MORPHINE 30 MG SA TAB PO SCH ×2 (08:10→20:07)
[2019-11-05] MEDS: MORPHINE 10MG/0.5ML ORAL CONCENTRATE SOLUTION U/D SL PRN ×3 (08:35→22:24)
[2019-11-06] MEDS: MORPHINE 10MG/0.5ML ORAL CONCENTRATE SOLUTION U/D SL PRN ×4 (02:44→22:28)
[2019-11-06] MEDS: MORPHINE 30 MG SA TAB PO SCH ×2 (08:04→20:09)
[2019-11-06] MEDS: ONDANSETRON 4 MG ORAL DISINTEGRATING TAB SL PRN (13:32)
[2019-11-07] MEDS: MORPHINE 10MG/0.5ML ORAL CONCENTRATE SOLUTION U/D SL PRN ×3 (05:19→22:15)
[2019-11-07] MEDS: LORazepam 1 MG TAB PO PRN ×2 (07:57→19:59)
[2019-11-07] MEDS: MORPHINE 30 MG SA TAB PO SCH ×2 (07:58→20:00)
--- NOTE | 2019-11-07 08:48 | IPNPDOC ---
Date Seen The patient was seen on 11/07/19. 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 Awaiting decision as to whether patient will be going home with family/hospice. Per PFS, this decision will be made early this week. No acute complaints by patient. 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 TIME CLOCK INSPECTOR status. PLAN: # Metastatic prostate cancer - mets to brain, bone - last PSA 465 in 07/2019 - oncology care at [facility] - aberaterone with pred, Xgeva, lupron - hospice consult placed, patient agreeable - TIME CLOCK INSPECTOR status # Metastatic bone pain - L hip/L knee - repeat L femur, L knee, r/o acute fracture - resume home pain meds - percocet 5/325mg PO q4h prn (1-2 tab) - morphine 2 mg IV q4h prn - MSIR 30 mg q12h PO scheduled #Anxiety/Depression - klonopin 0.5 mg PO prn - ativan 1 mg IV q4h prn for anxiety # Nausea - zofran prn # Fatigue possible due to cancer related anemia HTN Hypothyroidism DM2 HLD ALP elevation Hypocalcemia Hypokalemia DISPOSITION: Finalization of discharge plans to hopefully occur early this work week. Currently TIME CLOCK INSPECTOR, Hospice following. VS, I&O, 24H, Fishbone Vital Signs/I&O Vital Signs Date Time Temp Pulse Resp B/P (MAP) Pulse Ox O2 Delivery O2 Flow Rate FiO2 11/07/19 07:58 18 11/06/19 08:00 Room Air 11/03/19 00:30 105 127/86 (100) 108 132/88 (103) 11/01/19 06:00 98.1 100 I&O- Last 24 Hours up to 6 AM 11/07/19 06:00 Intake Total 830 ml Output Total 700 ml Balance 130 ml Current Medications Current Medications Medications (Trade) Dose Ordered Sig/Rocio Route PRN Reason Start Time Stop Time Status Last Admin Dose Admin Acetaminophen (Tylenol Suppository) 650 mg Q4HP PRN ID MILD PAIN or TEMP > 101 11/01/19 12:00 Aspirin (Ecotrin) 325 mg DAILY PO 10/28/19 09:00 11/01/19 11:50 DC 11/01/19 08:55 Bicalutamide (Casodex) 50 mg DAILY PO 10/28/19 09:00 11/01/19 11:50 DC 11/01/19 08:56 Calcium Gluconate 1000 mg/Dextrose 110 ml @ 110 mls/hr Q1H IV 10/31/19 10:00 10/31/19 11:59 DC 10/31/19 09:28 Clonazepam (KlonoPIN) 0.5 mg TID PRN PO ANXIETY 10/29/19 11:45 11/02/19 10:28 Dextrose (Dextrose 50%) 25 ml ASDIRECTED PRN IV SEE LABEL COMMENTS 10/28/19 11:00 11/01/19 12:10 DC Enoxaparin Sodium (Lovenox) 40 mg DAILY@2100 SC 10/27/19 21:00 11/01/19 14:17 DC 10/31/19 21:07 Glucagon (Glucagon) 1 mg ASDIRECTED PRN SC SEE LABEL COMMENTS 10/28/19 11:00 11/01/19 12:10 DC Glucose (Glucose) 16 GM ASDIRECTED PRN PO SEE LABEL COMMENTS 10/28/19 11:00 11/01/19 12:10 DC Home Med (Med Rec Complete!) ASDIRECTED XX 10/27/19 15:30 10/27/19 15:18 DC Insulin Human Lispro (HumaLOG INSULIN) SEE PROTOCOL TABLE AC SC 10/28/19 12:00 11/01/19 12:10 DC 10/31/19 13:13 Insulin Human Lispro (HumaLOG INSULIN) SEE PROTOCOL TABLE QHS SC 10/28/19 21:00 11/01/19 12:10 DC Levothyroxine Sodium (Synthroid) 125 mcg DAILY@0600 PO 10/28/19 06:00 11/01/19 11:50 DC 11/01/19 05:40 Lisinopril (Prinivil) 10 mg DAILY PO 10/28/19 09:00 11/01/19 11:50 DC 10/31/19 09:33 Lorazepam (Ativan) 1 mg Q4HP PRN IM AGITATION 11/01/19 12:00 11/01/19 21:38 DC Lorazepam (Ativan) 1 mg Q4HP PRN PO ANXIETY 11/01/19 21:45 11/07/19 07:57 Morphine Sulfate (Morphine Sulfate Inj) 2 mg Q4H PRN IV MODERATE PAIN (PS 5-7) 11/01/19 12:00 11/05/19 08:16 DC 11/04/19 18:58 Morphine Sulfate (Morphine Sulfate Inj) 2 mg Q6H PRN IV MODERATE PAIN (PS 5-7) 10/27/19 18:15 11/01/19 11:50 DC 11/01/19 03:10 Morphine Sulfate (Ms Contin) 30 mg BID PO 11/01/19 09:00 11/07/19 07:58 Morphine Sulfate (Roxanol) 2 mg Q4HP PRN SL PAIN 11/05/19 08:15 11/07/19 05:19 Ondansetron HCl (Zofran Odt) 4 mg Q4HP PRN SL NAUSEA OR VOMITING 11/01/19 19:45 11/06/19 13:32 Oxycodone/ Acetaminophen (Percocet 5mg/ 325mg Tablet) 1 tab Q6H PRN PO PAIN 10/27/19 18:15 11/01/19 11:50 DC 11/01/19 07:48 Oxycodone/ Acetaminophen (Percocet 5mg/ 325mg Tablet) 2 tab Q6H PRN PO PAIN 11/01/19 12:15 11/01/19 23:03 DC 11/01/19 21:49 Potassium Phos/ Sodium Phos (K-Phos Neutral) 250 mg TID PO 10/31/19 16:00 11/01/19 12:10 DC 11/01/19 08:55 Prednisone (Deltasone) 5 mg BID PO 10/27/19 21:00 10/27/19 18:28 DC Simvastatin (Zocor) 40 mg QPM PO 10/27/19 21:00 11/01/19 11:50 DC 10/31/19 21:07 Sodium Biphosphate/ Sodium Phosphate (Fleet Enema) 1 ea Q3DP PRN ID CONSTIPATION 11/01/19 12:00 Sodium Chloride 1,000 ml @ 125 mls/hr Q8H IV 10/27/19 20:15 10/28/19 07:20 DC 10/28/19 06:06 Sodium Chloride 1,000 ml @ 200 mls/hr Q5H IV 10/27/19 12:30 10/28/19 00:40 DC 10/27/19 20:11 Tamsulosin HCl (Flomax) 0.4 mg QPM PO 10/27/19 21:00 11/01/19 11:50 DC 10/31/19 21:07 Allergies Coded Allergies: No Known Allergies (Unverified , 01/20/19) Megan Benavidez MD Nov 07, 2019 08:48
[2019-11-07] MEDS: ONDANSETRON 4 MG ORAL DISINTEGRATING TAB SL PRN (20:20)
[2019-11-08] MEDS: MORPHINE 10MG/0.5ML ORAL CONCENTRATE SOLUTION U/D SL PRN (06:35)
[2019-11-08] MEDS: MORPHINE 30 MG SA TAB PO SCH ×2 (08:40→20:52)
[2019-11-08] MEDS: LORazepam 1 MG TAB PO PRN (20:52)
[2019-11-08] MEDS: ONDANSETRON 4 MG ORAL DISINTEGRATING TAB SL PRN (20:52)
[2019-11-09] MEDS: LORazepam 1 MG TAB PO PRN ×3 (09:24→21:43)
[2019-11-09] MEDS: MORPHINE 30 MG SA TAB PO SCH ×2 (09:24→21:44)
--- NOTE | 2019-11-09 14:39 | REP ---
LEFT KNEE SERIES: 2-VIEWS HISTORY: Pain. FINDINGS: AP and lateral views of the left knee demonstrate vascular calcification. Joint spaces are preserved. No bony erosive or destructive lesion is seen. No evidence of joint effusion. There is mild nonarticular spurring at the superior pole of the patella at the quadriceps tendon insertion. IMPRESSION: Mild nonarticular superior pole patellar spurring. Vascular calcification. No acute abnormality. MTDD
--- NOTE | 2019-11-09 14:40 | REP ---
LEFT FEMUR: 4-VIEWS HISTORY: Pain. FINDINGS: Four views of the left femur demonstrate vascular calcification in the thigh soft tissues. There is extensive abnormal sclerotic change in the ischium, superior pubic ramus, and throughout most of the ileum on the left consistent with sclerotic skeletal metastatic disease. This has been observed on previous CT study from 12/20/2018. No pathologic fracture is seen. No lytic lesion is observed. IMPRESSION: Sclerotic metastatic disease left hemipelvis. No acute femur abnormality. MTDD
[2019-11-09] MEDS: MORPHINE 10MG/0.5ML ORAL CONCENTRATE SOLUTION U/D SL PRN (16:24)
[2019-11-10] MEDS: LORazepam 1 MG TAB PO PRN (04:14)
[2019-11-10] MEDS: MORPHINE 10MG/0.5ML ORAL CONCENTRATE SOLUTION U/D SL PRN (04:14)
[2019-11-10] MEDS: MORPHINE 30 MG SA TAB PO SCH ×2 (09:35→20:11)
[2019-11-11] MEDS: MORPHINE 30 MG SA TAB PO SCH ×2 (10:02→20:14)
[2019-11-11] MEDS: MORPHINE 10MG/0.5ML ORAL CONCENTRATE SOLUTION U/D SL PRN (16:13)
[2019-11-12] MEDS: MORPHINE 30 MG SA TAB PO SCH ×2 (08:06→20:20)
[2019-11-12] MEDS: MORPHINE 10MG/0.5ML ORAL CONCENTRATE SOLUTION U/D SL PRN (14:18)
[2019-11-12] MEDS: LORazepam 1 MG TAB PO PRN (16:56)
[2019-11-13] MEDS: MORPHINE 10MG/0.5ML ORAL CONCENTRATE SOLUTION U/D SL PRN (01:47)
[2019-11-13] MEDS: MORPHINE 30 MG SA TAB PO SCH ×2 (09:50→21:24)
[2019-11-14] MEDS: MORPHINE 30 MG SA TAB PO SCH ×2 (09:29→20:00)
[2019-11-14] MEDS: LORazepam 1 MG TAB PO PRN ×2 (12:37→20:00)
[2019-11-15] MEDS: MORPHINE 30 MG SA TAB PO SCH ×2 (08:37→20:00)
[2019-11-15] MEDS: MORPHINE 10MG/0.5ML ORAL CONCENTRATE SOLUTION U/D SL PRN (13:16)
[2019-11-16] MEDS: MORPHINE 30 MG SA TAB PO SCH ×2 (08:48→20:00)
--- NOTE | 2019-11-16 11:47 | IPNPDOC ---
Text Note Date of Service The patient was seen on 11/16/19. NOTE Subjective: Patient is a 69-year-old male with a PMHx of metastatic prostate Adenocarcinoma (Mets to brain, bone, last PSA 07/2019 of 485), HTN, hypothyroidism, DM2, presented to [facility] ED with generalized weakness. Patient was ultimately transitioned to hospice status on 10/31. Patient was seen and examined at the bedside. Patient reports that she would like to go home with hospice services. However, will be working with patient family services to determine if this is possible. Patient denies any significant pain other than mild discomfort of his left lower leg that has been controlled with current pain regimen. Objective: Vitals (See below) General: Lying in bed, appears comfortable, AAOx3 Full exam not completed Assessment and plan: Metastatic prostate cancer Metastatic bone pain Anxiety/Depression Nausea Fatigue possible due to cancer related anemia HTN Hypothyroidism DM2 HLD ALP elevation Hypocalcemia Hypokalemia Pressure ulcer of sacral area (Stage 2) treating with foam dressing Severe protein calorie malnutrition; Gaunt / Albumin 1.8 / Was evaluated by Dietary prior DVT prophylaxis Plan: - Patient was transitioned to hospice status on 10/31 - MOLST form updated - Discussing with PFS about exterminator helper termite placement; vs home with hospice; patient is currently trying to establish 02/09 care at home Disposition: - Will transition to ALT status - Currently RELATIONS SPECIALIST VS,Fishbone, I+O VS, Fishbone, I+O Vital Signs Date Time Temp Pulse Resp B/P (MAP) Pulse Ox O2 Delivery O2 Flow Rate FiO2 11/16/19 08:48 18 Room Air I&O- Last 24 Hours up to 6 AM 11/16/19 05:59 Intake Total 900 ml Output Total 1075 ml Balance -175 ml ROB NORWOOD MD Nov 16, 2019 11:47
[2019-11-17] MEDS: LORazepam 1 MG TAB PO PRN ×2 (02:36→20:10)
[2019-11-17] MEDS: MORPHINE 30 MG SA TAB PO SCH ×2 (08:27→20:10)
[2019-11-17] MEDS: ONDANSETRON 4 MG ORAL DISINTEGRATING TAB SL PRN (09:50)
[2019-11-18] MEDS: MORPHINE 30 MG SA TAB PO SCH ×2 (09:24→21:27)
[2019-11-18] MEDS: SALIVA SUBSTITUTE(MOUTHKOTE) BTL MT PRN ×3 (09:50→21:29)
[2019-11-18] MEDS: ONDANSETRON 4 MG ORAL DISINTEGRATING TAB SL PRN (09:50)
[2019-11-18] MEDS: LORazepam 1 MG TAB PO PRN ×2 (13:53→18:47)
[2019-11-19] MEDS: MORPHINE 30 MG SA TAB PO SCH ×2 (08:53→20:10)
[2019-11-19] MEDS: LORazepam 1 MG TAB PO PRN (18:16)
[2019-11-19] MEDS: SALIVA SUBSTITUTE(MOUTHKOTE) BTL MT PRN (18:16)
[2019-11-19] MEDS: ONDANSETRON 4 MG ORAL DISINTEGRATING TAB SL PRN (18:18)
[2019-11-20] MEDS: MORPHINE 30 MG SA TAB PO SCH ×2 (09:14→20:00)
[2019-11-20] MEDS: MORPHINE 10MG/0.5ML ORAL CONCENTRATE SOLUTION U/D SL PRN (16:39)
[2019-11-20] MEDS: SALIVA SUBSTITUTE(MOUTHKOTE) BTL MT PRN (16:39)
[2019-11-20] MEDS: LORazepam 1 MG TAB PO PRN (20:00)
[2019-11-21] MEDS: MORPHINE 30 MG SA TAB PO SCH ×2 (08:35→20:01)
[2019-11-21] MEDS: LORazepam 1 MG TAB PO PRN ×2 (10:07→20:00)
[2019-11-22] MEDS: MORPHINE 10MG/0.5ML ORAL CONCENTRATE SOLUTION U/D SL PRN ×2 (02:38→12:50)
[2019-11-22] MEDS: LORazepam 1 MG TAB PO PRN (08:44)
[2019-11-22] MEDS: MORPHINE 30 MG SA TAB PO SCH ×2 (08:45→21:09)
[2019-11-22] MEDS: SALIVA SUBSTITUTE(MOUTHKOTE) BTL MT PRN (08:46)
[2019-11-23] MEDS: MORPHINE 10MG/0.5ML ORAL CONCENTRATE SOLUTION U/D SL PRN (06:39)
--- NOTE | 2019-11-23 08:08 | IPNPDOC ---
Text Note Date of Service The patient was seen on 11/23/19. NOTE Subjective: Patient is a 69-year-old male with a PMHx of metastatic prostate Adenocarcinoma (Mets to brain, bone, last PSA 07/2019 of 485), HTN, hypothyroidism, DM2, presented to [facility] ED with generalized weakness. Patient was ultimately transitioned to hospice status on 10/31. Patient was seen and examined at the bedside. Patient appears to be resting in bed, no acute distress. Appears comfortable. Objective: Vitals (See below) General: Lying flat in bed with a damp towel on his forehead. Denies any pain, appears comfortable. Awake and alert oriented 3 Full exam not completed Assessment and plan: Metastatic prostate cancer Metastatic bone pain Anxiety/Depression Nausea Fatigue possible due to cancer related anemia HTN Hypothyroidism DM2 HLD ALP elevation Hypocalcemia Hypokalemia Pressure ulcer of sacral area (Stage 2) treating with foam dressing Severe protein calorie malnutrition; Gaunt / Albumin 1.8 / Was evaluated by Dietary prior DVT prophylaxis Plan: - Patient was transitioned to hospice status on 10/31 - MOLST form has been updated - Discussing with PFS about fci placement / Home with hospice; patient is currently trying to establish 24/7 care at home Disposition: - c/w ALC status - Currently MAT 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
[2019-11-23] MEDS: MORPHINE 30 MG SA TAB PO SCH ×2 (08:58→20:13)
[2019-11-24] MEDS: MORPHINE 30 MG SA TAB PO SCH ×2 (08:21→20:09)
[2019-11-24] MEDS: LORazepam 1 MG TAB PO PRN (15:03)
[2019-11-24] MEDS: SENNA 8.6 MG TAB (SENOKOT) PO SCH (20:09)
[2019-11-25] MEDS: SENNA 8.6 MG TAB (SENOKOT) PO SCH ×2 (08:17→20:55)
[2019-11-25] MEDS: MORPHINE 30 MG SA TAB PO SCH ×2 (08:17→20:56)
[2019-11-25] MEDS: LORazepam 1 MG TAB PO PRN ×2 (10:19→20:55)
[2019-11-25] MEDS: MORPHINE 10MG/0.5ML ORAL CONCENTRATE SOLUTION U/D SL PRN (15:15)
[2019-11-26] MEDS: FLEET ENEMA PR PRN (05:30)
[2019-11-26] MEDS: SENNA 8.6 MG TAB (SENOKOT) PO SCH ×2 (09:22→20:06)
[2019-11-26] MEDS: MORPHINE 30 MG SA TAB PO SCH ×2 (09:22→20:06)
[2019-11-26] MEDS: LORazepam 1 MG TAB PO PRN (15:06)
[2019-11-26] MEDS: MORPHINE 10MG/0.5ML ORAL CONCENTRATE SOLUTION U/D SL PRN (16:16)
[2019-11-27] MEDS: SENNA 8.6 MG TAB (SENOKOT) PO SCH ×2 (08:47→20:11)
[2019-11-27] MEDS: MORPHINE 30 MG SA TAB PO SCH ×2 (08:48→20:12)
[2019-11-28] MEDS: SENNA 8.6 MG TAB (SENOKOT) PO SCH ×2 (08:08→20:47)
[2019-11-28] MEDS: MORPHINE 30 MG SA TAB PO SCH ×2 (08:08→20:47)
--- NOTE | 2019-11-28 10:58 | IPNPDOC ---
Text Note Date of Service The patient was seen on 11/28/19. NOTE Subjective: Patient was seen and examined at the bedside. Awake and alert and oriented. Denies any chest pain or SOb, denies any abdominal pain , nausea or vomiting. Says his appetite is poor and has only lunch and dinner does not take any breakfast. Asks me when he is going ot be discharged. Tells me he still hopes to be able to go home. Comfortable. Objective: Vitals (See below) General: Lying flat in bed with a damp towel on his forehead. Denies any pain, appears comfortable. Awake and alert oriented 3 Red rash at both groin. Full exam not completed Assessment and plan: Metastatic prostate cancer Metastatic bone pain Anxiety/Depression Nausea Fatigue possible due to cancer related anemia HTN Hypothyroidism DM2 HLD ALP elevation Hypocalcemia Hypokalemia Pressure ulcer of sacral area (Stage 2) treating with foam dressing Severe protein calorie malnutrition; Gaunt / Albumin 1.8 / Was evaluated by Dietary prior Intertriginous candidiasis. DVT prophylaxis Plan: Patient is a 69-year-old male with a history of metastatic prostate Adenocarcinoma (Mets to brain, bone, last PSA 07/2019 of 485), HTN, hypothyroidism, DM2, presented to [facility] ED with generalized weakness. Patient was ultimately transitioned to hospice status on 10/31. Intertriginous candidiasis nystatin powder. Patient was transitioned to hospice status on 10/31 MOLST form has been updated Discussing with PFS about [facility]cf placement / Home with hospice; patient is currently trying to establish 24/7 care at home Disposition: c/w ALC status Currently LEGAL PARAPROFESSIONAL VS,Fishbone, I+O VS, Fishbone, I+O Vital Signs Date Time Temp Pulse Resp B/P (MAP) Pulse Ox O2 Delivery O2 Flow Rate FiO2 11/27/19 20:12 14 Room Air 11/25/19 20:56 95 I&O- Last 24 Hours up to 6 AM 11/28/19 06:00 Intake Total 400 ml Output Total 200 ml Balance 200 ml MCKENNA HERNANDEZ MD Nov 28, 2019 10:58
[2019-11-28] MEDS: NYSTATIN 100,000 UNITS/GM TOPICAL PWD 15 GM TOP SCH ×2 (11:31→20:48)
[2019-11-28] MEDS: MORPHINE 10MG/0.5ML ORAL CONCENTRATE SOLUTION U/D SL PRN (14:03)
[2019-11-28] MEDS: LORazepam 1 MG TAB PO PRN (18:30)
[2019-11-28] MEDS ORDERED: NYSTATIN 100,000 UNITS/GM TOPICAL PWD 15 GM TOP SCH (21:00)
[2019-11-29] MEDS: LORazepam 1 MG TAB PO PRN (00:08)
[2019-11-29] MEDS: ONDANSETRON 4 MG ORAL DISINTEGRATING TAB SL PRN (00:20)
[2019-11-29] MEDS: MORPHINE 10MG/0.5ML ORAL CONCENTRATE SOLUTION U/D SL PRN ×2 (01:26→15:18)
[2019-11-29] MEDS: SENNA 8.6 MG TAB (SENOKOT) PO SCH ×2 (09:18→20:02)
[2019-11-29] MEDS: NYSTATIN 100,000 UNITS/GM TOPICAL PWD 15 GM TOP SCH ×2 (09:20→20:03)
[2019-11-29] MEDS: MORPHINE 30 MG SA TAB PO SCH ×2 (09:20→20:02)
[2019-11-30] MEDS: MORPHINE 10MG/0.5ML ORAL CONCENTRATE SOLUTION U/D SL PRN ×2 (02:51→13:48)
[2019-11-30] MEDS: SENNA 8.6 MG TAB (SENOKOT) PO SCH ×2 (09:10→20:03)
[2019-11-30] MEDS: MORPHINE 30 MG SA TAB PO SCH ×2 (09:11→20:03)
[2019-11-30] MEDS: NYSTATIN 100,000 UNITS/GM TOPICAL PWD 15 GM TOP SCH ×2 (09:11→20:04)
[2019-11-30] MEDS: LORazepam 1 MG TAB PO PRN ×2 (13:04→20:03)
[2019-12-01] MEDS: SENNA 8.6 MG TAB (SENOKOT) PO SCH ×2 (08:09→22:12)
[2019-12-01] MEDS: MORPHINE 30 MG SA TAB PO SCH ×2 (08:09→22:12)
[2019-12-01] MEDS: NYSTATIN 100,000 UNITS/GM TOPICAL PWD 15 GM TOP SCH ×2 (08:09→22:10)
[2019-12-01] MEDS: LORazepam 1 MG TAB PO PRN ×2 (08:09→22:12)
[2019-12-01] MEDS: SALIVA SUBSTITUTE(MOUTHKOTE) BTL MT PRN (08:10)
[2019-12-01] MEDS: MORPHINE 10MG/0.5ML ORAL CONCENTRATE SOLUTION U/D SL PRN (18:25)
[2019-12-02] MEDS: MORPHINE 10MG/0.5ML ORAL CONCENTRATE SOLUTION U/D SL PRN ×2 (01:13→18:33)
[2019-12-02] MEDS: SENNA 8.6 MG TAB (SENOKOT) PO SCH ×2 (08:32→21:36)
[2019-12-02] MEDS: MORPHINE 30 MG SA TAB PO SCH ×2 (08:33→21:37)
[2019-12-02] MEDS: LORazepam 1 MG TAB PO PRN ×2 (08:33→21:37)
[2019-12-02] MEDS: NYSTATIN 100,000 UNITS/GM TOPICAL PWD 15 GM TOP SCH ×2 (08:35→21:38)
[2019-12-02] MEDS: SALIVA SUBSTITUTE(MOUTHKOTE) BTL MT PRN (08:35)
[2019-12-03] MEDS: SALIVA SUBSTITUTE(MOUTHKOTE) BTL MT PRN (03:34)
[2019-12-03] MEDS: SENNA 8.6 MG TAB (SENOKOT) PO SCH ×2 (08:13→20:11)
[2019-12-03] MEDS: MORPHINE 30 MG SA TAB PO SCH ×2 (08:13→20:13)
[2019-12-03] MEDS: NYSTATIN 100,000 UNITS/GM TOPICAL PWD 15 GM TOP SCH ×2 (08:16→20:13)
[2019-12-03] MEDS: LORazepam 1 MG TAB PO PRN (08:29)
[2019-12-03] MEDS: MORPHINE 10MG/0.5ML ORAL CONCENTRATE SOLUTION U/D SL PRN (16:59)
[2019-12-04] MEDS: LORazepam 1 MG TAB PO PRN ×3 (00:02→21:56)
[2019-12-04] MEDS: MORPHINE 30 MG SA TAB PO SCH ×2 (08:08→20:29)
[2019-12-04] MEDS: SENNA 8.6 MG TAB (SENOKOT) PO SCH ×2 (08:08→20:29)
[2019-12-04] MEDS: NYSTATIN 100,000 UNITS/GM TOPICAL PWD 15 GM TOP SCH ×2 (08:08→20:30)
[2019-12-04] MEDS: MORPHINE 10MG/0.5ML ORAL CONCENTRATE SOLUTION U/D SL PRN (17:16)
[2019-12-05] MEDS: SENNA 8.6 MG TAB (SENOKOT) PO SCH ×2 (10:04→21:04)
[2019-12-05] MEDS: MORPHINE 30 MG SA TAB PO SCH ×2 (10:04→21:05)
[2019-12-05] MEDS: NYSTATIN 100,000 UNITS/GM TOPICAL PWD 15 GM TOP SCH ×2 (10:05→21:05)
--- NOTE | 2019-12-05 10:25 | IPNPDOC ---
Text Note Date of Service The patient was seen on 12/05/19. NOTE Subjective: Patient was seen and examined at the bedside. Awake and alert and oriented. Denies any chest pain or SOb, denies any abdominal pain , nausea or vomiting. No issues this week. Asks me when he is going to be discharged. Tells me he still hopes to be able to go home which unfortunately is not a feasible option for the patient at this point. Comfortable. Objective: Vitals (See below) General: Lying flat in bed in no distress. Awake and alert oriented 3 Full exam not completed Assessment and plan: Metastatic prostate cancer Metastatic bone pain Anxiety/Depression Nausea Fatigue possible due to cancer related anemia HTN Hypothyroidism DM2 HLD Hypocalcemia Hypokalemia Pressure ulcer of sacral area (Stage 2) treating with foam dressing Severe protein calorie malnutrition; Gaunt / Albumin 1.8 / Was evaluated by Dietary prior Intertriginous candidiasis. DVT prophylaxis Plan: Patient is a 69-year-old male with a history of metastatic prostate Adenocarcinoma (Mets to brain, bone, last PSA 07/2019 of 485), HTN, hypothyroidism, DM2, presented to [facility] ED with generalized weakness. Patient was ultimately transitioned to hospice status on 10/31. Intertriginous candidiasis nystatin powder. Patient was transitioned to hospice status on 10/31 MOLST form has been updated Discussing with PFS about jail placement / Home with hospice; patient is currently trying to establish 24/7 care at home Disposition: c/w ALC status Currently FIELD INTERVIEWER VS,Fishbone, I+O VS, Fishbone, I+O Vital Signs Date Time Temp Pulse Resp B/P (MAP) Pulse Ox O2 Delivery O2 Flow Rate FiO2 12/05/19 10:04 18 12/04/19 20:29 Room Air I&O- Last 24 Hours up to 6 AM 12/05/19 06:00 Intake Total 500 ml Output Total 120 ml Balance 380 ml MCKENNA HERNANDEZ MD Dec 05, 2019 10:25
[2019-12-05] MEDS: MORPHINE 10MG/0.5ML ORAL CONCENTRATE SOLUTION U/D SL PRN (16:51)
[2019-12-05] MEDS: LORazepam 1 MG TAB PO PRN (18:55)
[2019-12-06] MEDS: LORazepam 1 MG TAB PO PRN ×3 (00:12→21:22)
[2019-12-06] MEDS: MORPHINE 10MG/0.5ML ORAL CONCENTRATE SOLUTION U/D SL PRN ×2 (00:13→15:23)
[2019-12-06] MEDS: SENNA 8.6 MG TAB (SENOKOT) PO SCH ×2 (09:06→21:22)
[2019-12-06] MEDS: MORPHINE 30 MG SA TAB PO SCH ×2 (09:06→21:29)
[2019-12-06] MEDS: SALIVA SUBSTITUTE(MOUTHKOTE) BTL MT PRN (09:06)
[2019-12-06] MEDS: NYSTATIN 100,000 UNITS/GM TOPICAL PWD 15 GM TOP SCH ×2 (09:06→21:34)
[2019-12-07] MEDS: SENNA 8.6 MG TAB (SENOKOT) PO SCH ×2 (07:58→21:30)
[2019-12-07] MEDS: MORPHINE 30 MG SA TAB PO SCH ×2 (07:59→21:30)
[2019-12-07] MEDS: NYSTATIN 100,000 UNITS/GM TOPICAL PWD 15 GM TOP SCH ×2 (08:01→21:30)
[2019-12-07] MEDS: LORazepam 1 MG TAB PO PRN (10:34)
[2019-12-07] MEDS: MORPHINE 10MG/0.5ML ORAL CONCENTRATE SOLUTION U/D SL PRN (10:34)
[2019-12-08] MEDS: LORazepam 1 MG TAB PO PRN ×3 (05:23→13:06)
[2019-12-08] MEDS: ONDANSETRON 4 MG ORAL DISINTEGRATING TAB SL PRN (09:06)
[2019-12-08] MEDS: SENNA 8.6 MG TAB (SENOKOT) PO SCH ×2 (09:06→20:33)
[2019-12-08] MEDS: MORPHINE 10MG/0.5ML ORAL CONCENTRATE SOLUTION U/D SL PRN ×2 (09:08→13:07)
[2019-12-08] MEDS: MORPHINE 30 MG SA TAB PO SCH ×2 (09:09→20:33)
[2019-12-08] MEDS: NYSTATIN 100,000 UNITS/GM TOPICAL PWD 15 GM TOP SCH ×2 (09:14→20:34)
[2019-12-09] MEDS: MORPHINE 10MG/0.5ML ORAL CONCENTRATE SOLUTION U/D SL PRN ×2 (04:50→23:49)
[2019-12-09] MEDS: SENNA 8.6 MG TAB (SENOKOT) PO SCH ×2 (09:02→21:12)
[2019-12-09] MEDS: MORPHINE 30 MG SA TAB PO SCH ×2 (09:02→21:12)
[2019-12-09] MEDS: NYSTATIN 100,000 UNITS/GM TOPICAL PWD 15 GM TOP SCH ×2 (15:20→21:00)
[2019-12-09] MEDS: LORazepam 1 MG TAB PO PRN (23:40)
[2019-12-10] MEDS: MORPHINE 30 MG SA TAB PO SCH ×2 (08:00→19:56)
[2019-12-10] MEDS: SENNA 8.6 MG TAB (SENOKOT) PO SCH ×2 (08:00→19:55)
[2019-12-10] MEDS: NYSTATIN 100,000 UNITS/GM TOPICAL PWD 15 GM TOP SCH ×2 (10:58→19:55)
[2019-12-10] MEDS: LORazepam 1 MG TAB PO PRN ×2 (11:31→22:40)
[2019-12-10] MEDS: SALIVA SUBSTITUTE(MOUTHKOTE) BTL MT PRN (19:56)
[2019-12-10] MEDS: MORPHINE 10MG/0.5ML ORAL CONCENTRATE SOLUTION U/D SL PRN (19:56)
[2019-12-11] MEDS: MORPHINE 10MG/0.5ML ORAL CONCENTRATE SOLUTION U/D SL PRN ×4 (02:33→20:40)
[2019-12-11] MEDS: MORPHINE 30 MG SA TAB PO SCH ×2 (09:55→20:39)
[2019-12-11] MEDS: SENNA 8.6 MG TAB (SENOKOT) PO SCH ×2 (09:55→20:39)
[2019-12-11] MEDS: LORazepam 1 MG TAB PO PRN ×2 (09:56→20:39)
[2019-12-11] MEDS: NYSTATIN 100,000 UNITS/GM TOPICAL PWD 15 GM TOP SCH ×2 (09:56→20:44)
[2019-12-12] MEDS: MORPHINE 30 MG SA TAB PO SCH ×2 (08:16→20:23)
[2019-12-12] MEDS: SENNA 8.6 MG TAB (SENOKOT) PO SCH ×2 (08:17→20:22)
[2019-12-12] MEDS: SALIVA SUBSTITUTE(MOUTHKOTE) BTL MT PRN ×2 (10:17→17:05)
[2019-12-12] MEDS: NYSTATIN 100,000 UNITS/GM TOPICAL PWD 15 GM TOP SCH ×2 (10:18→20:24)
[2019-12-12] MEDS: MORPHINE 10MG/0.5ML ORAL CONCENTRATE SOLUTION U/D SL PRN ×2 (10:19→22:08)
[2019-12-12] MEDS: LORazepam 1 MG TAB PO PRN ×2 (17:29→21:39)
[2019-12-13] MEDS: MORPHINE 30 MG SA TAB PO SCH ×2 (08:37→20:37)
[2019-12-13] MEDS: LORazepam 1 MG TAB PO PRN (08:37)
[2019-12-13] MEDS: SENNA 8.6 MG TAB (SENOKOT) PO SCH ×2 (08:38→20:37)
[2019-12-13] MEDS: NYSTATIN 100,000 UNITS/GM TOPICAL PWD 15 GM TOP SCH ×2 (08:39→20:38)
[2019-12-13] MEDS: FLEET ENEMA PR PRN (22:38)
[2019-12-14] MEDS: LORazepam 1 MG TAB PO PRN ×3 (00:26→18:20)
[2019-12-14] MEDS: MORPHINE 10MG/0.5ML ORAL CONCENTRATE SOLUTION U/D SL PRN ×3 (01:47→18:20)
[2019-12-14] MEDS: MORPHINE 30 MG SA TAB PO SCH ×2 (09:05→20:21)
[2019-12-14] MEDS: SENNA 8.6 MG TAB (SENOKOT) PO SCH ×2 (09:05→20:20)
[2019-12-14] MEDS: NYSTATIN 100,000 UNITS/GM TOPICAL PWD 15 GM TOP SCH ×2 (09:05→20:21)
--- NOTE | 2019-12-14 10:47 | IPNPDOC ---
Text Note Date of Service The patient was seen on 12/14/19. NOTE Subjective: Patient is a 69-year-old male with a PMHx of metastatic prostate Adenocarcinoma (Mets to brain, bone, last PSA 07/2019 of 485), HTN, hypothyroidism, DM2, presented to [facility] ED with generalized weakness. Patient was ultimately transitioned to hospice status on 10/31. Patient was seen and examined at the bedside. Patient does not appear to be in any distress. Reports he does experience some pain that is controlled with his current pain regimen. PFS is working with patient to get him to hospice house, unlikely will be able to go home as he has no 24/7 coverage. Objective: Vitals (See below) General: Laying on his side does not appear to be in any acute distress, is awake and alert Full exam not completed Assessment and plan: Metastatic prostate cancer Metastatic bone pain Anxiety/Depression Nausea Fatigue possible due to cancer related anemia HTN Hypothyroidism DM2 HLD ALP elevation Hypocalcemia Hypokalemia Pressure ulcer of sacral area (Stage 2) treating with foam dressing Severe protein calorie malnutrition; Gaunt / Albumin 1.8 / Was evaluated by Dietary prior DVT prophylaxis Plan: - Patient was transitioned to hospice status on 10/31 - MOLST form has been updated - Discussing with PFS; will need to go to hospice house; unable to get 24/7 coverage at home Disposition: - c/w ALC status - Currently PROPERTY MANAGEMENT ACCOUNTANT VS,Fishbone, I+O VS, Fishbone, I+O Vital Signs Date Time Temp Pulse Resp B/P (MAP) Pulse Ox O2 Delivery O2 Flow Rate FiO2 12/13/19 20:37 16 12/12/19 10:50 Room Air I&O- Last 24 Hours up to 6 AM 12/14/19 06:00 Intake Total 170 ml Output Total 250 ml Balance -80 ml ROB NORWOOD MD Dec 14, 2019 10:47
[2019-12-15] MEDS: LORazepam 1 MG TAB PO PRN ×3 (04:54→20:27)
[2019-12-15] MEDS: SENNA 8.6 MG TAB (SENOKOT) PO SCH ×2 (08:06→20:27)
[2019-12-15] MEDS: NYSTATIN 100,000 UNITS/GM TOPICAL PWD 15 GM TOP SCH ×2 (08:07→20:32)
[2019-12-15] MEDS: MORPHINE 30 MG SA TAB PO SCH ×2 (08:07→20:26)
[2019-12-15] MEDS: MORPHINE 10MG/0.5ML ORAL CONCENTRATE SOLUTION U/D SL PRN (11:43)
[2019-12-15] MEDS ORDERED: LORazepam 1 MG TAB PO ONE (13:30)
[2019-12-16] MEDS: LORazepam 1 MG TAB PO PRN ×3 (03:43→23:58)
[2019-12-16] MEDS: MORPHINE 10MG/0.5ML ORAL CONCENTRATE SOLUTION U/D SL PRN ×2 (03:44→17:38)
[2019-12-16] MEDS: MORPHINE 30 MG SA TAB PO SCH ×2 (08:46→20:22)
[2019-12-16] MEDS: SENNA 8.6 MG TAB (SENOKOT) PO SCH ×2 (08:46→20:21)
[2019-12-16] MEDS: NYSTATIN 100,000 UNITS/GM TOPICAL PWD 15 GM TOP SCH ×2 (08:47→20:38)
[2019-12-17] MEDS: MORPHINE 10MG/0.5ML ORAL CONCENTRATE SOLUTION U/D SL PRN ×3 (01:43→20:32)
[2019-12-17 08:58] VITALS: BP 132/88
[2019-12-17] MEDS: MORPHINE 30 MG SA TAB PO SCH ×2 (08:58→20:32)
[2019-12-17] MEDS: SENNA 8.6 MG TAB (SENOKOT) PO SCH ×3 (08:58→20:43)
[2019-12-17] MEDS: NYSTATIN 100,000 UNITS/GM TOPICAL PWD 15 GM TOP SCH ×2 (09:43→20:30)
[2019-12-17] MEDS: LORazepam 1 MG TAB PO PRN ×2 (10:49→20:30)
[2019-12-18] MEDS: SENNA 8.6 MG TAB (SENOKOT) PO SCH ×2 (10:06→20:56)
[2019-12-18] MEDS: NYSTATIN 100,000 UNITS/GM TOPICAL PWD 15 GM TOP SCH ×2 (10:06→20:57)
[2019-12-18] MEDS: MORPHINE 30 MG SA TAB PO SCH ×2 (10:06→20:56)
[2019-12-18] MEDS: LORazepam 1 MG TAB PO PRN ×2 (11:43→20:57)
[2019-12-18] MEDS: SALIVA SUBSTITUTE(MOUTHKOTE) BTL MT PRN (20:58)
[2019-12-19] MEDS: SENNA 8.6 MG TAB (SENOKOT) PO SCH ×2 (09:00→20:43)
[2019-12-19] MEDS: NYSTATIN 100,000 UNITS/GM TOPICAL PWD 15 GM TOP SCH ×2 (09:00→20:46)
[2019-12-19] MEDS: MORPHINE 30 MG SA TAB PO SCH ×2 (09:00→20:44)
[2019-12-19] MEDS: LORazepam 1 MG TAB PO PRN (20:44)
[2019-12-19] MEDS: MORPHINE 10MG/0.5ML ORAL CONCENTRATE SOLUTION U/D SL PRN (20:45)
[2019-12-19] MEDS: SALIVA SUBSTITUTE(MOUTHKOTE) BTL MT PRN (20:46)
[2019-12-20] MEDS: MORPHINE 10MG/0.5ML ORAL CONCENTRATE SOLUTION U/D SL PRN (00:29)
[2019-12-20] MEDS: SALIVA SUBSTITUTE(MOUTHKOTE) BTL MT PRN (00:29)
[2019-12-20] MEDS: NYSTATIN 100,000 UNITS/GM TOPICAL PWD 15 GM TOP SCH ×2 (09:07→20:13)
[2019-12-20] MEDS: SENNA 8.6 MG TAB (SENOKOT) PO SCH ×2 (09:07→20:14)
[2019-12-20] MEDS: MORPHINE 30 MG SA TAB PO SCH ×2 (09:07→20:13)
[2019-12-20] MEDS: LORazepam 1 MG TAB PO PRN (20:13)
[2019-12-21] MEDS: SENNA 8.6 MG TAB (SENOKOT) PO SCH ×2 (09:00→21:00)
[2019-12-21] MEDS: MORPHINE 30 MG SA TAB PO SCH ×2 (09:20→21:50)
[2019-12-21] MEDS: NYSTATIN 100,000 UNITS/GM TOPICAL PWD 15 GM TOP SCH ×2 (09:20→21:51)
[2019-12-21] MEDS: MORPHINE 10MG/0.5ML ORAL CONCENTRATE SOLUTION U/D SL PRN (11:22)
[2019-12-21] MEDS: LORazepam 1 MG TAB PO PRN ×2 (11:22→21:50)
[2019-12-22] MEDS: SENNA 8.6 MG TAB (SENOKOT) PO SCH (08:01)
[2019-12-22] MEDS: LORazepam 1 MG TAB PO PRN ×2 (08:01→14:27)
[2019-12-22] MEDS: MORPHINE 30 MG SA TAB PO SCH ×2 (08:01→21:00)
[2019-12-22] MEDS: NYSTATIN 100,000 UNITS/GM TOPICAL PWD 15 GM TOP SCH ×2 (08:02→21:56)
[2019-12-22] MEDS: MORPHINE 10MG/0.5ML ORAL CONCENTRATE SOLUTION U/D SL PRN ×3 (09:43→22:14)
[2019-12-22] MEDS ORDERED: SENNA 8.6 MG TAB (SENOKOT) PO PRN (10:00)
[2019-12-22] MEDS ORDERED: SENNA 8.6 MG TAB (SENOKOT) PO SCH (21:00)
[2019-12-22] MEDS: SALIVA SUBSTITUTE(MOUTHKOTE) BTL MT PRN (21:56)
[2019-12-23] MEDS: MORPHINE 10MG/0.5ML ORAL CONCENTRATE SOLUTION U/D SL PRN ×6 (01:07→22:52)
[2019-12-23] MEDS: LORazepam 1 MG TAB PO PRN ×5 (01:25→22:52)
[2019-12-23] MEDS: SALIVA SUBSTITUTE(MOUTHKOTE) BTL MT PRN ×2 (04:50→22:51)
[2019-12-23] MEDS: MORPHINE 30 MG SA TAB PO SCH ×3 (09:00→22:51)
[2019-12-23] MEDS: NYSTATIN 100,000 UNITS/GM TOPICAL PWD 15 GM TOP SCH ×2 (09:25→22:51)
[2019-12-24] MEDS: NYSTATIN 100,000 UNITS/GM TOPICAL PWD 15 GM TOP SCH ×2 (09:16→21:58)
[2019-12-24] MEDS: MORPHINE 30 MG SA TAB PO SCH ×2 (09:16→21:58)
[2019-12-24] MEDS: MORPHINE 10MG/0.5ML ORAL CONCENTRATE SOLUTION U/D SL PRN (12:00)
[2019-12-24] MEDS: LORazepam 1 MG TAB PO PRN ×2 (12:00→21:58)
--- NOTE | 2019-12-24 14:58 | IPNPDOC ---
Date Seen The patient was seen on 12/24/19. Progress Note SUBJECTIVE: Patient was seen and examined this morning. He is a 69 year old male with metastatic prostate adenocarcinoma to the brain and bones, HTN, h ypothyroid, DM2 who originally presented with generalized weakness. Patient was transitioned to hospice status on 10/31. Patient was seen and evaluated today. He currently reports some pain however states that overall he is comfortable. Patient is currently awaiting hospice house OBJECTIVE PHYSICAL EXAMINATION: VITAL SIGNS: Please see below. GENERAL: Patient is cachetic appearing. He is awake and alert. He does not appear in any acute distress and appears comfortable CARDIOVASCULAR: Normal S1. S2. Regular rate and rhythm. No clicks rubs or murmurs RESPIRATORY: Clear breath sounds bilaterally ABDOMINAL: Soft. Nondistended. EXTREMITIES: No edema. SKIN: No signs of rash or skin breakdown LABORATORY DATA, IMAGING STUDIES, MICROBIOLOGY: Please see below. ASSESSMENT AND PLAN: Patient is a 69 year old male with metastatic prostate cancer who has transitioned to hospice status on 10/31 and is awaiting discharge to hospice house PROBLEMS: 1. Metastatic Prostate Cancer -Patient is current hospice status. Patient states that he is comfortablt. -Continue pain medication. Patient currently states that is pain is adequately controlled. -Patient is hospice status. Awaiting placement in hospice house -Morphine, Ativan, Mouthkote, 2. Pressure Ulcer of Sacrum stage 2 -Continue current wound care with foam dressing 6. Severe Protein Calorie Malnutrition -Regular diet Disposition: Patient is currently awaiting placement in hospice house. Will continue current medications. Attending Note: Patient seen and examined independently. Agree with resident's note. VS, I&O, 24H, Fishbone Vital Signs/I&O I&O- Last 24 Hours up to 6 AM 12/24/19 06:00 Intake Total 150 ml Output Total 0 ml Balance 150 ml RODRIGO CARRASQUILLO DO Dec 24, 2019 14:58 MANA ODOM MD Dec 26, 2019 06:57
[2019-12-25] MEDS: MORPHINE 10MG/0.5ML ORAL CONCENTRATE SOLUTION U/D SL PRN ×4 (10:12→22:23)
[2019-12-25] MEDS: LORazepam 1 MG TAB PO PRN ×3 (10:13→22:23)
[2019-12-25] MEDS: NYSTATIN 100,000 UNITS/GM TOPICAL PWD 15 GM TOP SCH ×2 (10:13→22:22)
[2019-12-26] MEDS: MORPHINE 10MG/0.5ML ORAL CONCENTRATE SOLUTION U/D SL PRN ×5 (03:59→13:40)
[2019-12-26] MEDS: LORazepam 1 MG TAB PO PRN ×4 (04:53→21:47)
[2019-12-26] MEDS: NYSTATIN 100,000 UNITS/GM TOPICAL PWD 15 GM TOP SCH ×2 (09:51→21:47)
[2019-12-27] MEDS: MORPHINE 10MG/0.5ML ORAL CONCENTRATE SOLUTION U/D SL PRN ×4 (00:57→17:56)
[2019-12-27] MEDS: LORazepam 1 MG TAB PO PRN ×3 (08:58→17:56)
[2019-12-27] MEDS: NYSTATIN 100,000 UNITS/GM TOPICAL PWD 15 GM TOP SCH ×2 (09:30→20:18)
[2019-12-28] MEDS: MORPHINE 10MG/0.5ML ORAL CONCENTRATE SOLUTION U/D SL PRN ×4 (00:40→12:10)
[2019-12-28] MEDS ORDERED: MORP20SO3 PO (08:26)
[2019-12-28] MEDS ORDERED: HYOS125TA PO (08:26)
[2019-12-28] MEDS ORDERED: ATIV1TAB10 PO (08:26)
--- NOTE | 2019-12-28 08:36 | DS.PDOC ---
Discharge Summary General Date of Admission Oct 27, 2019 at 16:12 Date of Discharge 12/28/19 Discharge Summary PROCEDURES PERFORMED DURING STAY: [None]. DISCHARGE DIAGNOSES: #prostate CA with mets to brain/bone #hypothyroidism #metastatic bone pain #HTN #DM #HLD #anxiety/depression COMPLICATIONS/CHIEF COMPLAINT: Adenocarcinoma Of Prostate,Stage 4,Weakness. HPI/Hospital Course: 69M with PMHx of metastatic prostate adenocarcinoma (mets to brain, bone), HTN, hypothyroidism, DM2, presented to [facility] ED with generalized weakness, after he was unable to lift himself off his couch today. 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 He denied syncope/pre-syncope, seizure, chest pain, n/v/d, lightheadedness or blurred vision. He is actively managed by oncology service (Dr. Downey) at the [facility], on leupron (every 6 mo), aberaterone with prednisone, Xgeva monthly. On admission, reviewed by oncology, patient was not interested in pursuing palliative care at this time, as he feels that he has good support around him, his son visits and helps with groceries. Patient admitted for further evaluation. He was noted be complaining of fatigue, and found to be anemic. As such he received 1 unit PRBC, and IV fluids. He opted for hospice placement, and made comfort measures only. DISCHARGE MEDICATIONS: Please see below. ALLERGIES: Please see below. PHYSICAL EXAMINATION ON DISCHARGE: VITAL SIGNS: Please see below. GENERAL: Patient is cachetic appearing, bitemporal wasting. He is awake and alert. He does not appear in any acute distress and appears comfortable RESPIRATORY: Clear breath sounds bilaterally ABDOMINAL: Soft. Nondistended. EXTREMITIES: No edema. SKIN: No signs of rash or skin breakdown LABORATORY DATA: Please see below. PROGNOSIS: Poor ACTIVITY: [As tolerated]. DIET: Regular DISPOSITION: Discharge to hospice house. DISCHARGE INSTRUCTIONS: 1. Follow as per hospice. DISCHARGE CONDITION: [Stable]. TIME SPENT ON DISCHARGE: 35 minutes. Vital Signs/I&Os Vital Signs Date Time Temp Pulse Resp B/P (MAP) Pulse Ox O2 Delivery O2 Flow Rate FiO2 12/28/19 06:50 12 Room Air I&O- Last 24 Hours up to 6 AM 12/28/19 06:00 Intake Total 350 ml Output Total 0 ml Balance 350 ml Laboratory Data Labs 24H Laboratory Tests 2 12/27/19 10:59: Coronavirus (COVID-19)(PCR) NEGATIVE Discharge Medications Scheduled Abiraterone Acetate (Abiraterone Acetate) 250 Mg Tablet, 250 MG PO QID for Metastatic Prostate Cancer Take 250 mg po q.i.d. (may take 1000 mg daily at one time also) Aspirin (Aspirin EC) 325 Mg Tabec, 325 MG PO DAILY, (Reported) Bicalutamide (Bicalutamide) 50 Mg Tablet, 50 MG PO DAILY, (Reported) Calcium Carbonate/Vitamin D3 (Calcium 600-Vit D3 400 Tablet) 1 Each Tablet, 1 TAB PO BID, (Reported) Denosumab Injection (Xgeva) 120 Mg/1.7 Ml Vial, 60 MG SC QMONTH, (Reported) Leuprolide Acetate (Lupron Depot) 45 Mg Syringekit, 45 MG IM ASDIRECTED, (Reported) EVERY 6 MONTHS Levothyroxine Sodium (Synthroid) 125 Mcg Tab, 125 MCG PO DAILY, (Reported) Lisinopril (Lisinopril) 10 Mg Tab, 10 MG PO DAILY, (Reported) Metformin HCl (Metformin HCl) 500 Mg Tablet, 1,000 MG PO BID, (Reported) Prednisone (Prednisone) 5 Mg Tab.ds.pk, 5 MG PO BID for Abiraterone Therapy Take 5 mg po b.i.d. while taking Zytiga Simvastatin (Zocor) 40 Mg Tab, 40 MG PO QPM, (Reported) Tamsulosin HCl (Flomax) 0.4 Mg Cap, 0.4 MG PO QPM, (Reported) Scheduled PRN Hyoscyamine Sulfate (Hyoscyamine Sulfate) 0.125 Mg Tab.subl, 0.125 MG PO Q4HP PRN for TERMINAL SECRETIONS Use sublingually if unable to swallow Lorazepam (Ativan) 0.5 Mg Tablet, 0.5 MG PO Q4HP PRN for ANXIETY/AGITATION Use sublingually if unable to swallow Morphine Sulfate (Morphine Sulfate) 100 Mg/5 Ml Solution, 0.25-1 ML PO Q2H PRN for PAIN OR DYSPNEA Use sublingually if unable to swallow Oxycodone HCl/Acetaminophen (Percocet 5-325 mg Tablet) 1 Each Tablet, 1-2 TAB PO Q6H PRN for PAIN ISTOP#[id number] Allergies Coded Allergies: No Known Allergies (Unverified , 01/20/19) MANA ODOM MD Dec 28, 2019 08:36
[2019-12-28] MEDS: NYSTATIN 100,000 UNITS/GM TOPICAL PWD 15 GM TOP SCH (08:49)
[2019-12-28] MEDS: SALIVA SUBSTITUTE(MOUTHKOTE) BTL MT PRN (08:49)
[2019-12-28] MEDS: LORazepam 1 MG TAB PO PRN (09:28)
== END 2019-12-28 12:30 | disposition hospice, inpatient (51) | DRG 722 ==
LOC: M ED 12:08 → EDBD 12:08 → M ED INP 16:12 → M MSPAV 18:30
PROVIDERS: ADMIT Family Medicine; ATTEND Internal Medicine
PROC: 30233N1 Transfusion of Nonautologous Red Blood Cells into Peripheral Vein, Percutaneous Approach (ICD-10-PCS; principal; 2019-10-28)
DX: C61 Malignant neoplasm of prostate (principal); E43 Unspecified severe protein-calorie malnutrition; C79.31 Secondary malignant neoplasm of brain; C79.51 Secondary malignant neoplasm of bone; R53.83 Other fatigue; I10 Essential (primary) hypertension; E03.9 Hypothyroidism, unspecified; E11.9 Type 2 diabetes mellitus without complications; R53.1 Weakness; Z51.5 Encounter for palliative care; Z66 Do not resuscitate; D63.0 Anemia in neoplastic disease; F41.9 Anxiety disorder, unspecified; F32.9 Major depressive disorder, single episode, unspecified; G89.3 Neoplasm related pain (acute) (chronic); R11.0 Nausea; L89.152 Pressure ulcer of sacral region, stage 2; B37.2 Candidiasis of skin and nail; Z79.82 Long term (current) use of aspirin; Z79.84 Long term (current) use of oral hypoglycemic drugs; Z79.899 Other long term (current) drug therapy; Z20.828 Contact with and (suspected) exposure to other viral communicable diseases